=== PATIENT | female | born 1985 | race Two or more races ===

== ENCOUNTER 2018-07-19 12:17 | Outpatient (CLI) | payer MEDICAID ==
[2018-07-19 12:57] LABS: ALBUMIN 3.8 g/dL (3.2-5.5); ALKALINE PHOSPHATASE 89 IU/L (42-121); ALT ALANINE AMINOTRANSFERASE 12 IU/L (10-60); AST ASPARTATE AMINOTRANSFERASE 16 IU/L (10-42); BILIRUBIN,TOTAL 0.4 mg/dL (0.2-1.0); BUN - BLOOD UREA NITROGEN 10 mg/dL (6-20); CALCIUM 8.6 mg/dL (8.5-10.3); CARBON DIOXIDE - CO2 21 mmol/L (21-32); CHLORIDE 106 mmol/L (101-111); CHOL/HDL RATIO 4.3 (<4.4); CHOLESTEROL 171 mg/dL; CREATININE 0.7 mg/dL (0.4-1.0); GFR - MDRD 96 (>89); GLUCOSE 146 mg/dL (70-100); HDL CHOLESTEROL 40 mg/dL; LDL CHOLESTEROL,CALCULATED 94 mg/dL; LDL/HDL RATIO 2.4 (<4.4); SODIUM 135 mmol/L (135-145); TOTAL PROTEIN 7.7 g/dL (6.7-8.2); VLDL CHOLESTEROL 37 mg/dL
[2018-07-19 12:58] LABS: THYROID STIMULATING HORMONE 6.37 uIU/mL (0.34-5.60)
[2018-07-19 13:09] LABS: FOLATE 14.01 ng/mL (5.90 - >24.8)
[2018-07-19 13:11] LABS: BASOPHILS # (AUTO) 0.1 10^3/uL (0.0-0.1); BASOPHILS % (AUTO) 0.7 %; EOSINOPHILS # (AUTO) 0.3 10^3/uL (0.0-0.7); EOSINOPHILS % (AUTO) 2.5 %; HGB - HEMOGLOBIN 13.3 g/dL (12.0-16.0); LYMPHOCYTES # (AUTO) 2.2 10^3/uL (1.5-3.5); LYMPHOCYTES % (AUTO) 19.9 %; MEAN CORPUSCULAR HEMOGLOBIN 27.4 pg (27.0-31.0); MEAN CORPUSCULAR HGB CONC 33.2 g/dL (32.0-36.0); MEAN CORPUSCULAR VOLUME 82.5 fL (81.0-99.0); MEAN PLATELET VOLUME 8.7 fL (7.9-10.8); MONOCYTES # (AUTO) 0.7 10^3/uL (0.0-1.0); NEUTROPHILS # (AUTO) 7.8 10^3/uL (1.5-6.6); NEUTROPHILS % (AUTO) 70.9 %; PLT - PLATELET COUNT 338 10^3/uL (130-450); RED BLOOD COUNT 4.86 10^6/uL (4.20-5.40); RED CELL DISTRIBUTION WIDTH 15.5 % (12.0-15.0)
== END 2018-07-19 12:18 | disposition home or self-care (01) ==
LOC: LAB.N 12:17
PROVIDERS: ATTEND Nurse Practitioner
DX: I10 Essential (primary) hypertension (principal); R53.83 Other fatigue; E03.9 Hypothyroidism, unspecified
CPT/HCPCS: 36415; 80053; 80061; 82306; 82607; 82746; 83721; 84443; 85025

== ENCOUNTER → 2018-07-21 | Outpatient (CLI) | payer MEDICAID ==
[2018-07-21 14:08] LABS: HB2 TOTAL 13.9 g/dL; HEMOGLOBIN A1C 0.74 g/dL
[2018-07-26 14:02] LABS: THYROID PEROXIDASE ANTIBODIES 1 IU/mL (<9)
== END ==
LOC: LAB.N 08:00
PROVIDERS: ATTEND Nurse Practitioner
DX: R73.9 Hyperglycemia, unspecified (principal); E03.9 Hypothyroidism, unspecified
CPT/HCPCS: 36415; 83036; 84439; 84481; 86376; 86800

== ENCOUNTER 2018-08-22 08:00 | Outpatient (CLI) | payer MEDICAID | END 2018-08-22 08:01 | disposition home or self-care (01) | LOC: LAB.N 08:00 | PROVIDERS: ATTEND Nurse Practitioner | DX: E03.9 Hypothyroidism, unspecified (principal) | CPT/HCPCS: 36415; 84443 ==

== ENCOUNTER 2018-08-24 16:46 | Outpatient (CLI) | payer MEDICAID ==
--- NOTE | 2018-08-25 10:24 | Ultrasound Report ---
Reason: EPIGASTRIC PAIN Procedure Date: 08/24/2018 Accession Number: [id number] / [id number] Procedure: US - Abdomen Limited CPT Code: FULL RESULT: EXAM: ABDOMEN ULTRASOUND LIMITED, RUQ EXAM DATE: 08/24/2018 06:27 PM. CLINICAL HISTORY: Epigastric pain. COMPARISON: None. TECHNIQUE: Real-time scanning was performed with static images obtained. FINDINGS: Liver: Liver parenchyma is heterogeneous and mildly hyperechoic. No discrete liver masses or intrahepatic bile duct dilation. However, evaluation for masses is limited secondary to the echogenicity. 17.8 cm. Main portal vein flow: Hepatopetal. Gallbladder: Normal. No stones, wall thickening, or sonographic Rodriguez's sign. Biliary System: CBD measures 4.1 mm. No intrahepatic or extrahepatic ductal dilatation. Other: Right kidney measures 13.2 cm. No hydronephrosis. Questionable heterogeneous masslike region in the right upper kidney measuring 3 x 2.4 x 2.3 cm. IMPRESSION: 1. Mildly fatty liver. No mass. 2. Normal gallbladder and common bile duct. 3. No hydronephrosis. Questionable heterogeneous masslike region in the right upper kidney. Suspect artifact. However, recommend contrast-enhanced CT for better evaluation and to exclude an underlying mass. RADIA
== END 2018-08-24 16:47 | disposition home or self-care (01) ==
LOC: DI 16:46
PROVIDERS: ATTEND Internal Medicine Gastroenterology
DX: R10.13 Epigastric pain (principal)
CPT/HCPCS: 76705

== ENCOUNTER 2018-09-08 08:03 | Day surgery (SDC) | payer MEDICAID ==
[2018-09-08 08:28] LABS: HCG UR QUAL NEGATIVE
[2018-09-08] MEDS ORDERED: LACTATED RINGERS 1,000 ML IV ONE (08:40)
[2018-09-08] MEDS ORDERED: LIDO GARGLE 30 ML BOTTLE ONE (08:42)
[2018-09-08] MEDS ORDERED: fentaNYL 250 MCG/5 ML VIAL IVP ONE (08:53)
[2018-09-08] MEDS ORDERED: MIDAZOLAM 2 MG/2 ML VIAL IVP ONE (08:53)
[2018-09-08] MEDS ORDERED: LIDO GARGLE 30 ML BOTTLE PO ONE (09:18)
[2018-09-08 09:47] VITALS: BP 129/81
== END 2018-09-08 08:04 | disposition home or self-care (01) ==
LOC: SDS 08:03
PROVIDERS: ATTEND Internal Medicine Gastroenterology
PROC: 0DB18ZX Excision of Upper Esophagus, Via Natural or Artificial Opening Endoscopic, Diagnostic (ICD-10-PCS; 2018-09-08)
PROC: 0DB38ZX Excision of Lower Esophagus, Via Natural or Artificial Opening Endoscopic, Diagnostic (ICD-10-PCS; 2018-09-08)
PROC: 0DB98ZX Excision of Duodenum, Via Natural or Artificial Opening Endoscopic, Diagnostic (ICD-10-PCS; principal; 2018-09-08 09:00)
DX: R10.13 Epigastric pain (principal); R13.10 Dysphagia, unspecified; R68.81 Early satiety; M62.08 Separation of muscle (nontraumatic), other site; K21.9 Gastro-esophageal reflux disease without esophagitis; N28.89 Other specified disorders of kidney and ureter; I10 Essential (primary) hypertension; E11.9 Type 2 diabetes mellitus without complications; E03.9 Hypothyroidism, unspecified; E66.01 Morbid (severe) obesity due to excess calories; Z68.41 Body mass index [BMI] 40.0-44.9, adult; F41.9 Anxiety disorder, unspecified; F43.10 Post-traumatic stress disorder, unspecified; G44.89 Other headache syndrome; F17.210 Nicotine dependence, cigarettes, uncomplicated; K59.00 Constipation, unspecified; Z79.82 Long term (current) use of aspirin; Z83.79 Family history of other diseases of the digestive system; Z86.73 Personal history of transient ischemic attack (TIA), and cerebral infarction without residual deficits
CPT/HCPCS: 43239; 74160; 81025; 82565; A9270; J3010; J7120; Q9967

== ENCOUNTER 2018-09-08 10:23 | Outpatient (CLI) | payer MEDICAID ==
[2018-09-08] MEDS ORDERED: IOPAMIDOL-300 100 ML VIAL ONE (10:30)
[2018-09-08 11:17] LABS: CREATININE 0.7 mg/dL (0.4-1.0)
[2018-09-08] MEDS ORDERED: IOPAMIDOL-300 100 ML VIAL IVP ONE (14:38)
--- NOTE | 2018-09-08 15:54 | CT Report ---
Reason: RENAL MASS RIGHT Procedure Date: 09/08/2018 Accession Number: [id number] / [id number] Procedure: CT - Abdomen W/ CPT Code: FULL RESULT: EXAM: CT ABDOMEN EXAM DATE: 09/08/2018 11:41 AM. CLINICAL HISTORY: Upper pole right renal mass. Please assess. COMPARISON: Ultrasound from 08/24/2018. TECHNIQUE: Routine helical CT imaging was performed through the abdomen. IV contrast: Isovue 300 100 mL Enteric contrast: No. Reconstruction: Coronal and sagittal. In accordance with CT protocol optimization, one or more of the following dose reduction techniques were utilized for this exam: automated exposure control, adjustment of mA and/or KV based on patient size, or use of iterative reconstructive technique. FINDINGS: Lung Bases: Minimal basilar scar/atelectasis. The included portions of the heart are unremarkable. Liver: Normal. No masses. Gallbladder/Bile Ducts: Unremarkable. Spleen: Normal. Pancreas: Normal. Adrenal Glands: Normal. Kidneys: Kidneys enhance symmetrically. No masses are seen within the right or left kidney, particularly involving the upper pole of the right kidney. No nephrolithiasis or hydronephrosis. No ureteral dilatation. Peritoneal Cavity/Bowel: Stomach is well-distended and unremarkable. Included portions of the small bowel are unremarkable. Small fatty umbilical hernia. Subcentimeter mesenteric lymph nodes. Small to moderate volume of stool is seen in the colon. No diverticulitis. Subcentimeter retroperitoneal lymph nodes. The appendix is well visualized and normal. Vasculature: No aneurysms or other significant abnormality. Bones: Mild degenerative changes lower thoracic and lumbar spine. No acute osseous abnormalities. Other: None. IMPRESSION: 1. No renal masses are identified, particularly within the upper pole of the right kidney. The area noted on the recent ultrasound is likely the result of renal position and contour. 2. Subcentimeter mesenteric and retroperitoneal lymph nodes. RADIA
== END 2018-09-08 10:24 | disposition home or self-care (01) ==
LOC: DI 10:23
PROVIDERS: ATTEND Internal Medicine Gastroenterology
DX: N28.89 Other specified disorders of kidney and ureter (principal)
CPT/HCPCS: 74160; 82565

== ENCOUNTER 2018-09-26 19:56 | Outpatient (CLI) | payer MEDICAID ==
--- NOTE | 2018-09-27 12:01 | XRAY Report ---
Reason: Cervicalgia Procedure Date: 09/26/2018 Accession Number: [id number] / [id number] Procedure: XR - Cervical Spine 2 View CPT Code: FULL RESULT: EXAM: CERVICAL SPINE RADIOGRAPHY EXAM DATE: 09/26/2018 08:21 PM. CLINICAL HISTORY: Cervicalgia. COMPARISONS: None. TECHNIQUE: 3 views. FINDINGS: Alignment: There is mild reversal of normal cervical lordosis. No spondylolisthesis or scoliosis. Bones: The cervical vertebral bodies and posterior elements are well visualized from the skull base through C7. No fractures or bone lesions. Disks: Normal. Disk heights are maintained. Facets: No degenerative disease. Soft Tissues: Normal. No prevertebral soft tissue swelling. The visualized lung apices are clear. IMPRESSION: 1. Mild reversal of normal cervical lordosis. No spondylolisthesis or scoliosis. 2. No fracture or other acute osseous abnormality. No significant degenerative changes. RADIA
== END 2018-09-26 19:57 | disposition home or self-care (01) ==
LOC: DI 19:56
PROVIDERS: ATTEND Nurse Practitioner
DX: M54.2 Cervicalgia (principal); Z86.79 Personal history of other diseases of the circulatory system
CPT/HCPCS: 72040

== ENCOUNTER 2019-01-03 14:48 | Emergency (ER) | payer MEDICAID ==
[2019-01-03] MEDS ORDERED: KETOROLAC 30 MG/ML VIAL IM STA (17:07)
[2019-01-03] MEDS ORDERED: BUPIVACAINE 0.5%-EPI 1:200000 PF 10 ML VIAL SUBQ STA (17:07)
[2019-01-03] MEDS ORDERED: DEXAMETHASONE 10 MG/ML VIAL PO STA (17:07)
[2019-01-03] MEDS ORDERED: ONDANSETRON ODT 4 MG TABLET TL STA (17:09)
[2019-01-03 17:48] VITALS: BP 123/88
--- NOTE | 2019-01-03 17:52 | CT Report ---
Reason: right sided headache Procedure Date: 01/03/2019 Accession Number: [id number] / [id number] Procedure: CT - Head W/O CPT Code: FULL RESULT: EXAM: CT HEAD EXAM DATE: 01/03/2019 05:42 PM. CLINICAL HISTORY: Right sided headache. COMPARISON: None. TECHNIQUE: Multiaxial CT images were obtained from the foramen magnum to the vertex. Reformats: Sagittal and coronal. IV contrast: None. In accordance with CT protocol optimization, one or more of the following dose reduction techniques were utilized for this exam: automated exposure control, adjustment of mA and/or KV based on patient size, or use of iterative reconstructive technique. FINDINGS: Parenchyma: No intraparenchymal hemorrhage. No evidence of mass, midline shift, or CT findings of infarction. Rocha-white differentiation is distinct. Extraaxial Spaces: Normal for age. No subdural or epidural collections identified. Ventricles: Normal in size and position. Sinuses and Orbits: Imaged paranasal sinuses, orbits, and mastoids show no significant abnormality. Bones: No evidence of fracture or calvarial defect. IMPRESSION: Normal head CT. RADIA
--- NOTE | 2019-01-03 18:17 | ED Physician Documentation ---
PD HPI HEADACHE - Stated complaint Stated Complaint: COLD SX - Chief complaint Chief Complaint: Neuro - History obtained from History obtained from: Patient - History of Present Illness Timing - onset: How many days ago (3-4 days of right sided head pressure/pain, with some right eye visual sensitive, nausea.) Timing - onset during: Light activity Timing - duration: Days Timing - details: Gradual onset, Still present, Waxing and waning Worst headache ever?: No: Worst headache ever? (similar to other headaches, but has lasted more consistently. Typically will last hours to part of a day. Past headaches have always been on right like this.) Location: Right Quality: Aching (pressure feeling) Associated symptoms: Numbness (intermittent on right face). No: Fever, Stiff neck, Nausea, Vomiting, Eye pain, Vision changes Contributing factors: No: Hypertension, Recent illness, Trauma Similar symptoms before: Diagnosis (sounds like Dx of Migraines, with current PCP initiating referrals for Neurology and brain MRI (patient is new to [facility]). Previously had had normal MRIs. Has had previous trials of Imitrex. Has been on Metoprolol in the past. Currently on Topiramate to attemp to reduce headache frequency. Patient says no response in the past to Imitrex, Fioricet, and OTC meds.) Review of Systems Constitutional: denies: Fever, Chills, Myalgias Nose: denies: Rhinorrhea / runny nose, Congestion, Sinus pressure / pain Neurologic: reports: Headache. 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: section, Tubal ligation - Present Medications Home Medications: Ambulatory Orders Medication Instructions Recorded Confirmed Aspirin [Adult Aspirin] 81 mg PO DAILY 09/08/18 09/08/18 Cholecalciferol [Vitamin D3] 5,000 unit PO DAILY 09/08/18 09/08/18 Levothyroxine [Synthroid] 75 mcg PO QDAC 09/08/18 09/08/18 Lisinopril 10 mg PO DAILY 09/08/18 09/08/18 [place]-3/Dha/Epa/Fish Oil [Fish Oil 1 each PO DAILY 09/08/18 09/08/18 1,000 mg Softgel] Omeprazole 20 mg PO DAILY 09/08/18 09/08/18 Propranolol [Inderal] 10 mg PO BID PRN 09/08/18 09/08/18 Sertraline [Zoloft] 25 mg PO DAILY 09/08/18 09/08/18 Topiramate [Topamax] 25 mg PO QPM 09/08/18 09/08/18 Dexamethasone [Decadron] 4 mg PO DAILY #5 tablet 01/03/19 Ergotamine Tartrate/Caffeine 1 each PO Q6H PRN #15 tablet 01/03/19 [Cafergot Tablet] Naproxen 375 mg PO BID #20 tablet 01/03/19 Ondansetron Odt [Zofran] 4 mg TL Q6H PRN #10 tablet 01/03/19 - Allergies Allergies/Adverse Reactions: Allergies Allergy/AdvReac Type Severity Reaction Status Date / Time No Known Drug Allergies Allergy Verified 01/03/19 15:08 - Social History Does the pt smoke?: No Smoking Status: Never smoker Does the pt drink ETOH?: No Does the pt have substance abuse?: No - Immunizations Immunizations are current?: Yes - POLST Patient has POLST: No PD ED PE NORMAL - Vitals Vital signs reviewed: Yes - General General: Alert and oriented X 3, Well developed/nourished - HEENT HEENT: PERRL, EOMI, Moist mucous membranes, Pharynx benign - Neck Neck: Supple, no meningeal sign, No adenopathy, Other (tender right trapezius insertion area and this triggers pain into right side of head.) - Cardiac Cardiac: RRR, No murmur - Respiratory Respiratory: Clear bilaterally - Abdomen Abdomen: Soft, Non tender - Back Back: No CVA TTP - Derm Derm: Normal color, Warm and dry - Neuro Neuro: Alert and oriented X 3, 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 Departure - Departure Disposition: 01 Home, Self Care Clinical Impression: Right-sided headache Condition: Stable Record reviewed to determine appropriate education?: Yes Instructions: ED Cephalgia Unspecified Follow-Up: Aby Cabrales DNP [Primary Care Provider] - Prescriptions: Dexamethasone [Decadron] 4 mg PO DAILY #5 tablet Ergotamine Tartrate/Caffeine [Cafergot Tablet] 1 each PO Q6H PRN #15 tablet PRN Reason: Migraine Naproxen 375 mg PO BID #20 tablet Ondansetron Odt [Zofran] 4 mg TL Q6H PRN #10 tablet PRN Reason: Nausea / Vomiting Comments: Continue your current medications. Add Decadron steroid daily for the next 5 days. Use naproxen twice daily if needed for discomfort. Your head CT appears normal, so no tumors, swelling, bleeding as cause for the symptoms. The symptoms sound like migraine-type headache. Follow-up with your primary care and they can continue with the referral for neurology and even the MRI. That will give other information as well. For subsequent episodes that sound like migraine type headaches, use a combination of naproxen and Cafergot and can add ondansetron if needed for nausea. This combination is another attempt with antimigraine type medicines. Discharge Date/Time: 01/03/19 18:28
== END 2019-01-03 18:28 | disposition home or self-care (01) ==
LOC: ED 14:48
DX: R51 Headache (principal); Z86.73 Personal history of transient ischemic attack (TIA), and cerebral infarction without residual deficits
CPT/HCPCS: 20552; 70450; 96372; 99283; Q0162

== ENCOUNTER 2019-01-06 09:35 | Emergency (ER) | payer MEDICAID ==
[2019-01-06] MEDS ORDERED: PROCHLORPERAZINE 10 MG/2 ML VIAL IVP STA (10:39)
[2019-01-06] MEDS ORDERED: KETOROLAC 30 MG/ML VIAL IVP STA (10:39)
[2019-01-06] MEDS ORDERED: SODIUM CHLORIDE 0.9% 1,000 ML IV ONE (10:39)
[2019-01-06 12:40] VITALS: BP 120/97
--- NOTE | 2019-01-06 12:51 | ED Physician Documentation ---
PD HPI HEADACHE - Stated complaint Stated Complaint: NAUSEA/DIZZY - Chief complaint Chief Complaint: Neuro - History obtained from History obtained from: Patient, Family (Spouse) - History of Present Illness Timing - onset: How many days ago (5) Timing - details: Still present Worst headache ever?: Worst headache ever? (No) Quality: Other (pressure) Associated symptoms: Nausea, Vomiting Similar symptoms before: Treatment (Trigger point injection 3 days ago.) Recently seen: Emergency Dept (3 days ago with same.) - Additional information Additional information: The patient is a 33-year-old female who presents with headache that started 5 days ago, and has been persistent. She reports associated dizziness and nausea. She vomited once today. She denies fever, photosensitivity, abdominal pain, numbness or weakness. She was seen here 3 days ago for similar symptoms. She had a head CT at that time which was negative. She was treated with trigger point injection, which temporarily improved her symptoms. She reports history of similar symptoms many times in the past. She is treated for hypertension. Review of Systems Constitutional: denies: Fever Eyes: denies: Photophobia Ears: denies: Tinnitus/ringing Nose: denies: Congestion Throat: denies: Sore throat Cardiac: denies: Chest pain / pressure Respiratory: denies: Dyspnea, Cough GI: reports: Nausea, Vomiting. denies: Abdominal Pain : denies: Dysuria Skin: denies: Rash Musculoskeletal: denies: Neck pain, Back pain Neurologic: reports: Headache. 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 - Present Medications Home Medications: Ambulatory Orders Medication Instructions Recorded Confirmed Aspirin [Adult Aspirin] 81 mg PO DAILY 09/08/18 09/08/18 Cholecalciferol [Vitamin D3] 5,000 unit PO DAILY 09/08/18 09/08/18 Levothyroxine [Synthroid] 75 mcg PO QDAC 09/08/18 09/08/18 Lisinopril 10 mg PO DAILY 09/08/18 09/08/18 [place]-3/Dha/Epa/Fish Oil [Fish Oil 1 each PO DAILY 09/08/18 09/08/18 1,000 mg Softgel] Omeprazole 20 mg PO DAILY 09/08/18 09/08/18 Propranolol [Inderal] 10 mg PO BID PRN 09/08/18 09/08/18 Sertraline [Zoloft] 25 mg PO DAILY 09/08/18 09/08/18 Topiramate [Topamax] 25 mg PO QPM 09/08/18 09/08/18 Dexamethasone [Decadron] 4 mg PO DAILY #5 tablet 01/03/19 Ergotamine Tartrate/Caffeine 1 each PO Q6H PRN #15 tablet 01/03/19 [Cafergot Tablet] Naproxen 375 mg PO BID #20 tablet 01/03/19 Ondansetron Odt [Zofran] 4 mg TL Q6H PRN #10 tablet 01/03/19 Ibuprofen [Motrin] 800 mg PO Q8H PRN #30 tablet 01/06/19 Promethazine [Phenergan] 25 mg PO Q6H PRN #10 tab 01/06/19 amLODIPine [Norvasc] 5 mg PO ONCE 01/06/19 01/06/19 - Allergies Allergies/Adverse Reactions: Allergies Allergy/AdvReac Type Severity Reaction Status Date / Time No Known Drug Allergies Allergy Verified 01/06/19 09:48 - Social History Does the pt smoke?: No Smoking Status: Never smoker Does the pt drink ETOH?: No Does the pt have substance abuse?: No - Immunizations Immunizations are current?: Yes - POLST Patient has POLST: No PD ED PE NORMAL - Vitals Vital signs reviewed: Yes (borderline hypertension initially.) - General General: Alert and oriented X 3, Well developed/nourished - HEENT HEENT: Atraumatic, PERRL, EOMI, Ears normal, Pharynx benign, Other (Fundi without papilledema.) - Neck Neck: Supple, no meningeal sign, No adenopathy - Cardiac Cardiac: RRR, No murmur - Respiratory Respiratory: No respiratory distress, Clear bilaterally - Abdomen Abdomen: Soft, Non tender - Back Back: No CVA TTP - Derm Derm: No rash - Extremities Extremities: No edema, No calf tenderness / cord - Neuro Neuro: Alert and oriented X 3, No motor deficit, No sensory deficit, Normal speech Results - Vitals Vitals: Oxygen O2 Source Room air PD MEDICAL DECISION MAKING - ED course Complexity details: reviewed old records, re-evaluated patient, considered differential, d/w patient ED course: The patient's presentation is consistent with cephalgia of uncertain etiology. Migraine headache is considered, but this is a somewhat atypical presentation. She has had similar headaches many times in the past. There is no evidence to suggest intracranial hemorrhage, and she had a negative head CT three days ago when she presented with similar symptoms. Her presentation does not suggest temporal arteritis, meningitis, or pseudotumor cerebri. Treatment in the emergency department included administration of normal saline 1 L IV, prochlorperazine 10 mg IV, and ketorolac 30 mg IV. Her symptoms resolved with the above treatment. She is being discharged with prescription for Phenergan. I discussed with her symptomatic treatment, outpatient follow-up, as well as potentially worrisome signs or symptoms that should prompt reevaluation in the emergency department. Departure - Departure Disposition: 01 Home, Self Care Clinical Impression: Cephalgia Qualifiers: Headache type: unspecified Headache chronicity pattern: acute headache Intractability: not intractable Qualified Code(s): R51 - Headache Condition: Stable Instructions: ED Cephalgia Unspecified Follow-Up: Aby Cabrales DNP [Credentialed Staff Provider] - Prescriptions: Ibuprofen [Motrin] 800 mg PO Q8H PRN #30 tablet PRN Reason: Pain Promethazine [Phenergan] 25 mg PO Q6H PRN #10 tab PRN Reason: Nausea / Vomiting Comments: Drink plenty of fluids. You can use ibuprofen, up to 800 mg 3 times daily if needed for recurrent headache. You can use Phenergan as prescribed if needed for nausea. Follow-up with your primary physician as planned. Return to the emergency department if you develop increasing headache, persistent vomiting, fever with shaking chills, or otherwise worsening symptoms. Forms: Activity restrictions Discharge Date/Time: 01/06/19 13:01
== END 2019-01-06 13:01 | disposition home or self-care (01) ==
LOC: ED 09:35
DX: R51 Headache (principal); R42 Dizziness and giddiness; R11.2 Nausea with vomiting, unspecified; I10 Essential (primary) hypertension; Z79.82 Long term (current) use of aspirin
CPT/HCPCS: 96374; 99283

== ENCOUNTER 2019-03-10 08:00 | Outpatient (CLI) | payer MEDICAID ==
[2019-03-10 13:26] LABS: ALBUMIN 3.7 g/dL (3.2-5.5); ALKALINE PHOSPHATASE 95 IU/L (42-121); ALT ALANINE AMINOTRANSFERASE 13 IU/L (10-60); AST ASPARTATE AMINOTRANSFERASE 16 IU/L (10-42); BILIRUBIN,TOTAL 0.4 mg/dL (0.2-1.0); BUN - BLOOD UREA NITROGEN 11 mg/dL (6-20); CALCIUM 8.7 mg/dL (8.5-10.3); CARBON DIOXIDE - CO2 22 mmol/L (21-32); CHLORIDE 103 mmol/L (101-111); CHOL/HDL RATIO 4.6 (<4.4); CHOLESTEROL 173 mg/dL; CREATININE 0.6 mg/dL (0.4-1.0); GFR - MDRD 114 (>89); GLUCOSE 167 mg/dL (70-100); HDL CHOLESTEROL 38 mg/dL; LDL CHOLESTEROL,CALCULATED 107 mg/dL; LDL/HDL RATIO 2.8 (<4.4); SODIUM 136 mmol/L (135-145); TOTAL PROTEIN 7.3 g/dL (6.7-8.2); VLDL CHOLESTEROL 28 mg/dL
[2019-03-10 14:03] LABS: HB2 TOTAL 13.8 g/dL; HEMOGLOBIN A1C 0.89 g/dL; HEMOGLOBIN A1C % 8.1 % (4.6-6.2)
[2019-03-10 14:04] LABS: CREATININE,URINE 153.9 mg/dL; MICROALBUM/CREATININE RATIO,UR 31.2 ug/mg (<30.0); MICROALBUMIN,URINE 4.8 mg/dL (0-300.0)
[2019-03-10 19:19] LABS: BASOPHILS # (AUTO) 0.1 10^3/uL (0.0-0.1); BASOPHILS % (AUTO) 1.2 %; EOSINOPHILS # (AUTO) 0.2 10^3/uL (0.0-0.7); EOSINOPHILS % (AUTO) 2.1 %; HGB - HEMOGLOBIN 12.8 g/dL (12.0-16.0); LYMPHOCYTES # (AUTO) 2.3 10^3/uL (1.5-3.5); MEAN CORPUSCULAR HEMOGLOBIN 26.3 pg (27.0-31.0); MEAN CORPUSCULAR HGB CONC 31.7 g/dL (32.0-36.0); MEAN PLATELET VOLUME 8.9 fL (7.9-10.8); MONOCYTES # (AUTO) 0.7 10^3/uL (0.0-1.0); MONOCYTES % (AUTO) 6.6 %; NEUTROPHILS # (AUTO) 7.7 10^3/uL (1.5-6.6); NEUTROPHILS % (AUTO) 69.1 %; PLT - PLATELET COUNT 324 10^3/uL (130-450); RED BLOOD COUNT 4.85 10^6/uL (4.20-5.40); RED CELL DISTRIBUTION WIDTH 16.3 % (12.0-15.0); WHITE BLOOD COUNT 11.2 x10^3/uL (4.8-10.8)
[2019-03-13 13:32] LABS: ANA SCREEN NEGATIVE (NEGATIVE)
== END 2019-03-10 23:59 | disposition home or self-care (01) ==
LOC: LAB.N 08:00
PROVIDERS: ATTEND Nurse Practitioner
DX: I10 Essential (primary) hypertension (principal); E11.9 Type 2 diabetes mellitus without complications; K11.20 Sialoadenitis, unspecified; R53.83 Other fatigue
CPT/HCPCS: 36415; 80053; 80061; 82043; 82570; 83036; 83721; 84443; 85025; 85651; 86038; 86140

== ENCOUNTER 2019-07-11 08:00 | Outpatient (CLI) | payer MEDICAID ==
[2019-07-11 13:26] LABS: CALCIUM 8.4 mg/dL (8.5-10.3); CREATININE 0.6 mg/dL (0.4-1.0)
[2019-07-11 13:42] LABS: CREATININE,URINE 230.7 mg/dL; MICROALBUM/CREATININE RATIO,UR 57.7 ug/mg (<30.0); MICROALBUMIN,URINE 13.3 mg/dL (0-300.0)
[2019-07-11 13:58] LABS: HB2 TOTAL 13.7 g/dL; HEMOGLOBIN A1C 1.11 g/dL; HEMOGLOBIN A1C % 9.6 % (4.6-6.2)
== END 2019-07-11 23:59 | disposition home or self-care (01) ==
LOC: LAB.N 08:00
PROVIDERS: ATTEND Nurse Practitioner Gerontology
DX: E11.9 Type 2 diabetes mellitus without complications (principal)
CPT/HCPCS: 36415; 80048; 82043; 82570; 83036

== ENCOUNTER 2019-11-06 07:36 | Outpatient (CLI) | payer MEDICAID ==
[2019-11-06 13:53] LABS: HEMOGLOBIN A1C 0.93 g/dL; HEMOGLOBIN A1C % 8.7 % (4.6-6.2)
== END 2019-11-06 23:59 | disposition home or self-care (01) ==
LOC: LAB.N 07:36
PROVIDERS: ATTEND Nurse Practitioner Gerontology
DX: E11.9 Type 2 diabetes mellitus without complications (principal)
CPT/HCPCS: 36415; 83036

== ENCOUNTER 2020-02-06 07:56 | Outpatient (CLI) | payer MEDICAID ==
[2020-02-06 12:35] LABS: CALCIUM 8.3 mg/dL (8.5-10.3); CREATININE 0.6 mg/dL (0.4-1.0)
[2020-02-06 12:52] LABS: HB2 TOTAL 12.5 g/dL; HEMOGLOBIN A1C 0.96 g/dL; HEMOGLOBIN A1C % 9.2 % (4.6-6.2)
== END 2020-02-06 23:59 | disposition home or self-care (01) ==
LOC: LAB.N 07:56
PROVIDERS: ATTEND Nurse Practitioner Gerontology
DX: E11.9 Type 2 diabetes mellitus without complications (principal)
CPT/HCPCS: 36415; 80048; 83036

== ENCOUNTER 2020-03-07 13:36 | Outpatient (CLI) | payer MEDICAID ==
[2020-03-07 16:34] LABS: BASOPHILS # (AUTO) 0.1 10^3/uL (0.0-0.1); BASOPHILS % (AUTO) 0.8 %; EOSINOPHILS # (AUTO) 0.3 10^3/uL (0.0-0.7); EOSINOPHILS % (AUTO) 1.9 %; HGB - HEMOGLOBIN 13.3 g/dL (12.0-16.0); LYMPHOCYTES % (AUTO) 22.5 %; MEAN CORPUSCULAR HEMOGLOBIN 26.7 pg (27.0-31.0); MEAN CORPUSCULAR HGB CONC 31.1 g/dL (32.0-36.0); MEAN CORPUSCULAR VOLUME 85.7 fL (81.0-99.0); MEAN PLATELET VOLUME 10.9 fL (7.9-10.8); MONOCYTES # (AUTO) 0.8 10^3/uL (0.0-1.0); MONOCYTES % (AUTO) 6.1 %; NEUTROPHILS % (AUTO) 66.8 %; PLT - PLATELET COUNT 381 10^3/uL (130-450); RED BLOOD COUNT 4.98 10^6/uL (4.20-5.40); RED CELL DISTRIBUTION WIDTH 15.3 % (12.0-15.0); WHITE BLOOD COUNT 13.5 x10^3/uL (4.8-10.8)
[2020-03-07 16:52] LABS: ALBUMIN 3.9 g/dL (3.2-5.5); ALBUMIN/GLOBULIN RATIO 0.9 (1.0-2.2); BILIRUBIN,TOTAL 0.3 mg/dL (0.2-1.0); CALCIUM 8.2 mg/dL (8.5-10.3); CREATININE 0.6 mg/dL (0.4-1.0); TOTAL PROTEIN 8.1 g/dL (6.7-8.2)
== END 2020-03-07 23:59 | disposition home or self-care (01) ==
LOC: LAB.WCP 13:36
PROVIDERS: ATTEND Family Medicine
DX: G45.9 Transient cerebral ischemic attack, unspecified (principal); F31.12 Bipolar disorder, current episode manic without psychotic features, moderate
CPT/HCPCS: 36415; 80053; 85025; 85651

== ENCOUNTER 2020-03-15 14:37 | Outpatient (CLI) | payer MEDICAID ==
--- NOTE | 2020-03-17 08:15 | XRAY Report ---
Reason: DORSALGIA/TIA Procedure Date: 03/15/2020 Accession Number: [id number] / [id number] Procedure: XR - Chest 2 View X-Ray CPT Code: 19515 Final Report FULL RESULT: EXAM: CHEST RADIOGRAPHY EXAM DATE: 03/15/2020 02:53 PM. CLINICAL HISTORY: DORSALGIA/TIA. Right-sided chest burning and numbness. COMPARISON: None. TECHNIQUE: 2 views. FINDINGS: Lungs/Pleura: No focal opacities evident. No pleural effusion. No pneumothorax. Normal volumes. Mediastinum: Heart and mediastinal contours are unremarkable. Other: No acute osseous abnormality. IMPRESSION: Normal 2-view chest radiography. RADIA
--- NOTE | 2020-03-19 11:33 | Ultrasound Report ---
Reason: DORSALGIA,TIA Procedure Date: 03/15/2020 Accession Number: [id number] / [id number] Procedure: US - Carotid Doppler Complete CPT Code: Final Report FULL RESULT: EXAM: BILATERAL CAROTID AND VERTEBRAL ARTERY DUPLEX DOPPLER ULTRASOUND: EXAM DATE: 03/15/2020 04:50 PM CLINICAL HISTORY: Dorsalgia, TIA. COMPARISON: None available. TECHNIQUE: Grayscale imaging, color Doppler, and duplex spectral Doppler were used to evaluate the carotid and vertebral arteries bilaterally. Static images were obtained. FINDINGS: Technically limited and difficult examination with limited visualization. Atheromatous disease seen in the carotid arteries bilaterally including the common and internal and external carotid arteries. Normal antegrade flow is present in bilateral vertebral arteries. Bilateral cervical lymph nodes are seen in short axis dimension on the right measuring up to 13 mm, and on the left measuring up to 10 mm. VELOCITIES (cm/s): Right CCA mid: PSV 77 cm/s CCA dist: PSV 77.5 cm/s ICA prox: PSV 49.9 cm/s, EDV 17.8 cm/s ICA mid: PSV 67.8 cm/s, EDV 33 cm/s ICA dist: PSV 81.8 cm/s, EDV 43.4 cm/s ECA: PSV 66.8 cm/s Vert: PSV 45.6 cm/s ICA/CCA: 1.2 Left CCA mid: PSV 71.9 cm/s CCA dist: PSV 56.5 cm/s ICA prox: PSV 79.0 cm/s, EDV 29.9 cm/s ICA mid: PSV 67.7 cm/s, EDV 27.8 cm/s ICA dist: PSV 56.1 cm/s, EDV 29.9 cm/s ECA: PSV 82 cm/s Vert: PSV 55.6 cm/s ICA/CCA: 1.1 ICA diameter stenosis: Right: <50% by velocity and <70% by NASCET criteria. Left: <50% by velocity and <70% by NASCET criteria. IMPRESSION: 1. Bilateral carotid artery plaquing. 2. In the right carotid artery there are no elevated carotid artery velocities to suggest hemodynamically significant stenosis. 3. In the left carotid artery there are no elevated carotid artery velocities to suggest hemodynamically significant stenosis. 4. Normal antegrade flow is present in bilateral vertebral arteries. 5. Mildly prominent bilateral cervical lymph nodes. General Recommendations: Stenosis =50% ICA - Follow-up ultrasound 6-12 months Stenosis <50% ICA - High Risk Patient with plaque - Follow-up ultrasound 1-2 years Normal Study but High Risk Patient - Follow-up ultrasound 3-5 years Management recommendations and diagnostic criteria are based on current IAC endorsed standards in Carotid Artery Stenosis: Grayscale and Doppler Ultrasound Diagnosis. Validated velocity measurements with angiographic measurements and velocity criteria are extrapolated from diameter data as defined by the Society of Radiologists in Ultrasound Consensus Conference Radiology 2003; 229;340-346. RADIA
== END 2020-03-15 14:38 | disposition home or self-care (01) ==
LOC: DI 14:37
PROVIDERS: ATTEND Family Medicine
DX: I65.23 Occlusion and stenosis of bilateral carotid arteries (principal); R59.0 Localized enlarged lymph nodes; M54.9 Dorsalgia, unspecified
CPT/HCPCS: 71046; 93880

== ENCOUNTER 2020-03-21 08:00 | Outpatient (CLI) | payer MEDICAID ==
[2020-03-21 14:10] LABS: THYROID STIMULATING HORMONE 5.36 uIU/mL (0.34-5.60)
[2020-03-21 14:12] LABS: FREE T3 3.93 pg/mL (2.5-3.9); FREE T4 (FREE THYROXINE) 0.73 ng/dL (0.58-1.64)
== END 2020-03-21 23:59 | disposition home or self-care (01) ==
LOC: LAB.WCP 08:00
PROVIDERS: ATTEND Family Medicine
DX: E03.9 Hypothyroidism, unspecified (principal)
CPT/HCPCS: 36415; 84439; 84443; 84481

== ENCOUNTER 2020-04-03 11:35 | Outpatient (CLI) | payer MEDICAID ==
--- NOTE | 2020-04-03 14:27 | CT Report ---
Reason: HYPOTHYROID Procedure Date: 04/03/2020 Accession Number: [id number] / [id number] Procedure: CT - HEAD WO CPT Code: Final Report FULL RESULT: CT HEAD WITHOUT CONTRAST INDICATION: 34-year-old female. History as per requisition is "hypothyroid". However, according to the chief radiologic technologist this examination was requested to evaluate a TIA type episode. TECHNIQUE: Sequential 5 mm axial images were obtained through the brain. In accordance with CT protocol optimization, one or more of the following dose reduction techniques were utilized for this exam: automated exposure control, adjustment of mA and/or KV based on patient size, or use of iterative reconstructive technique. COMPARISON: 01/03/2019. FINDINGS: Ventricular size is normal and stable. The cortical sulci are very small, however, the findings are unchanged when compared to the previous examination from December of last year. Therefore, the small size of the sulci is presumably normal for this relatively young individual. The zavala-white differentiation is maintained without obvious findings of diffuse cerebral edema/brain swelling. There is no intracranial hemorrhage or abnormal extra-axial fluid collection. No mass effect or midline shift. The skull and skull base appear intact. The middle ear cavities and the mastoid air cells appear well aerated and clear. The imaged paranasal sinuses appear well aerated and clear. IMPRESSION: 1. Stable appearance of the brain when compared to previous study 01/03/2019. 2. No acute/subacute intracranial pathology is demonstrated. In particular, there is no evidence of recent lacunar or cortical infarction.
== END 2020-04-03 11:36 | disposition home or self-care (01) ==
LOC: DI 11:35
PROVIDERS: ATTEND Family Medicine
DX: E03.9 Hypothyroidism, unspecified (principal); G45.9 Transient cerebral ischemic attack, unspecified
CPT/HCPCS: 70450

== ENCOUNTER 2020-04-19 07:00 | Outpatient (CLI) | payer MEDICAID | END 2020-04-19 23:59 | disposition home or self-care (01) | LOC: LAB.WCP 07:00 | PROVIDERS: ATTEND Family Medicine | DX: E11.40 Type 2 diabetes mellitus with diabetic neuropathy, unspecified (principal); R20.1 Hypoesthesia of skin | CPT/HCPCS: 36415; 84207; 84425 ==

== ENCOUNTER 2020-05-16 16:35 | Outpatient (CLI) | payer MEDICAID | END 2020-05-16 23:59 | disposition home or self-care (01) | LOC: LAB.WCP 16:35 | PROVIDERS: ATTEND Family Medicine | DX: E11.42 Type 2 diabetes mellitus with diabetic polyneuropathy (principal) | CPT/HCPCS: 36415; 80048; 83036 ==

== ENCOUNTER 2020-05-17 21:50 | Emergency (ER) | payer MEDICAID ==
[2020-05-17] MEDS ORDERED: methylPREDNISolone SUCCINATE 1,000 MG in SODIUM CHLORIDE 0.9% 250 ML IV STA (21:57)
[2020-05-17] MEDS ORDERED: WATER FOR INJECTION,STERILE 20 ML ONE (22:19)
--- NOTE | 2020-05-17 22:19 | ED Physician Documentation ---
History of Present Illness - Stated complaint Stated Complaint: IV INFUSION - Chief complaint Chief Complaint: General - History obtained from History obtained from: Patient, Family - History of Present Illness Timing: Today Pain level max: 0 Pain level now: 0 - Additonal information Additional information: newly diagnosed with MS today. Her physician called, Dr. Barrett, and asked that she receive solu-medrol 1 g IV daily x 3 days and then follow up with her on Wednesday. Patient has numbness to the L side of the body x 2 months. 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 : None HEENT: None Psych: Anxiety, Panic attacks, Post traumatic stress disorder Musculoskeletal: None Derm: None - Past Surgical History Past Surgical History: Yes /INFANTRY ASSAULTMAN: section, Tubal ligation - Present Medications Home Medications: Ambulatory Orders Medication Instructions Recorded Confirmed Aspirin [Adult Aspirin] 81 mg PO DAILY 09/08/18 09/08/18 Cholecalciferol [Vitamin D3] 5,000 unit PO DAILY 09/08/18 09/08/18 Levothyroxine [Synthroid] 75 mcg PO QDAC 09/08/18 09/08/18 [place]-3/Dha/Epa/Fish Oil [Fish Oil 1 each PO DAILY 09/08/18 09/08/18 1,000 mg Softgel] Omeprazole 20 mg PO DAILY 09/08/18 09/08/18 Propranolol [Inderal] 10 mg PO BID PRN 09/08/18 09/08/18 Sertraline [Zoloft] 25 mg PO DAILY 09/08/18 09/08/18 Topiramate [Topamax] 25 mg PO QPM 09/08/18 09/08/18 lisinopriL [Lisinopril] 10 mg PO DAILY 09/08/18 09/08/18 Ergotamine Tartrate/Caffeine 1 each PO Q6H PRN #15 tablet 01/03/19 [Cafergot Tablet] Naproxen 375 mg PO BID #20 tablet 01/03/19 Ondansetron Odt [Zofran] 4 mg TL Q6H PRN #10 tablet 01/03/19 dexAMETHasone [Decadron] 4 mg PO DAILY #5 tablet 01/03/19 Ibuprofen [Motrin] 800 mg PO Q8H PRN #30 tablet 01/06/19 Promethazine [Phenergan] 25 mg PO Q6H PRN #10 tab 01/06/19 amLODIPine [Norvasc] 5 mg PO ONCE 01/06/19 01/06/19 - Allergies Allergies/Adverse Reactions: Allergies Allergy/AdvReac Type Severity Reaction Status Date / Time No Known Drug Allergies Allergy Verified 05/17/20 22:06 - Social History Does the pt smoke?: No Smoking Status: Never smoker Does the pt drink ETOH?: No Does the pt have substance abuse?: No - Immunizations Immunizations are current?: Yes - POLST Patient has POLST: No PD ED PE NORMAL - Vitals Vital signs reviewed: Yes - General General: Alert and oriented X 3, No acute distress - HEENT HEENT: Moist mucous membranes - Neck Neck: Supple, no meningeal sign - Cardiac Cardiac: RRR - Respiratory Respiratory: No respiratory distress, Clear bilaterally - Derm Derm: Warm and dry - Neuro Neuro: Alert and oriented X 3 - Psych Psych: Normal mood, Normal affect Results - Vitals Vitals: Vital Signs - 24 hr 05/17/20 22:04 Temperature 36.8 C Heart Rate 110 H Respiratory 17 Rate Blood Pressure 148/92 H O2 Saturation 98 Oxygen O2 Source Room air PD MEDICAL DECISION MAKING - ED course Complexity details: considered differential, d/w patient, d/w family, d/w direct sales consultant ED course: Patient given 1 g of IV Solu-Medrol. We will have her return tomorrow for her next dose. This document was made in part using voice recognition software. While efforts are made to proofread this document, sound alike and grammatical errors may occur. Departure - Departure Disposition: 01 Home, Self Care Clinical Impression: Multiple sclerosis Condition: Good Instructions: Multiple Sclerosis Follow-Up: GOMEZ BARRETT MD [Physician No Access] - 05/20/20 Comments: You need to return to the emergency department tomorrow for another infusion. You will need an infusion on Wednesday and you will follow-up with neurology
[2020-05-17 23:31] VITALS: BP 138/92
== END 2020-05-17 23:30 | disposition home or self-care (01) ==
LOC: ED 21:50
DX: G35 Multiple sclerosis (principal); I10 Essential (primary) hypertension; Z79.82 Long term (current) use of aspirin
CPT/HCPCS: 96365; 99284

== ENCOUNTER 2020-05-18 19:12 | Emergency (ER) | payer MEDICAID ==
[2020-05-18] MEDS ORDERED: methylPREDNISolone SUCCINATE 1,000 MG in SODIUM CHLORIDE 0.9% 250 ML IV STA (19:18)
--- NOTE | 2020-05-18 19:18 | ED Physician Documentation ---
History of Present Illness - Stated complaint Stated Complaint: INFUSION - History obtained from History obtained from: Patient, Family - History of Present Illness Pain level max: 0 Pain level now: 0 - Additonal information Additional information: Patient newly diagnosed with multiple sclerosis. She is here for her 1 g infusion of Solu-Medrol. She is following up with her neurologist on Wednesday. This is day 2 of the 3-day infusion. Nothing makes it better or worse. Most of her numbness is on the right side. 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 WETTER: section, Tubal ligation - Present Medications Home Medications: Ambulatory Orders Medication Instructions Recorded Confirmed Aspirin [Adult Aspirin] 81 mg PO DAILY 09/08/18 09/08/18 Cholecalciferol [Vitamin D3] 5,000 unit PO DAILY 09/08/18 09/08/18 Levothyroxine [Synthroid] 75 mcg PO QDAC 09/08/18 09/08/18 [place]-3/Dha/Epa/Fish Oil [Fish Oil 1 each PO DAILY 09/08/18 09/08/18 1,000 mg Softgel] Omeprazole 20 mg PO DAILY 09/08/18 09/08/18 Propranolol [Inderal] 10 mg PO BID PRN 09/08/18 09/08/18 Sertraline [Zoloft] 25 mg PO DAILY 09/08/18 09/08/18 Topiramate [Topamax] 25 mg PO QPM 09/08/18 09/08/18 lisinopriL [Lisinopril] 10 mg PO DAILY 09/08/18 09/08/18 Ergotamine Tartrate/Caffeine 1 each PO Q6H PRN #15 tablet 01/03/19 [Cafergot Tablet] Naproxen 375 mg PO BID #20 tablet 01/03/19 Ondansetron Odt [Zofran] 4 mg TL Q6H PRN #10 tablet 01/03/19 dexAMETHasone [Decadron] 4 mg PO DAILY #5 tablet 01/03/19 Ibuprofen [Motrin] 800 mg PO Q8H PRN #30 tablet 01/06/19 Promethazine [Phenergan] 25 mg PO Q6H PRN #10 tab 01/06/19 amLODIPine [Norvasc] 5 mg PO ONCE 01/06/19 01/06/19 - Allergies Allergies/Adverse Reactions: Allergies Allergy/AdvReac Type Severity Reaction Status Date / Time No Known Drug Allergies Allergy Verified 05/17/20 22:06 - Social History Does the pt smoke?: No Smoking Status: Never smoker Does the pt drink ETOH?: No Does the pt have substance abuse?: No - Immunizations Immunizations are current?: Yes - POLST Patient has POLST: No PD ED PE NORMAL - Vitals Vital signs reviewed: Yes - General General: Alert and oriented X 3, No acute distress, Well developed/nourished - HEENT HEENT: Moist mucous membranes - Neck Neck: Supple, no meningeal sign - Cardiac Cardiac: RRR - Respiratory Respiratory: No respiratory distress, Clear bilaterally - Derm Derm: Warm and dry - Neuro Neuro: Alert and oriented X 3 - Psych Psych: Normal mood, Normal affect Results - Vitals Vitals: Vital Signs - 24 hr 05/18/20 05/18/20 19:15 20:26 Temperature 36.1 C L 36.6 C Heart Rate 116 H 109 H Respiratory 18 20 Rate Blood Pressure 144/79 H 132/81 H O2 Saturation 98 99 Oxygen O2 Source Room air PD MEDICAL DECISION MAKING - ED course Complexity details: considered differential, d/w patient, d/w family ED course: Patient given her 1 g infusion of Solu-Medrol as directed by her neurologist. She will return tomorrow for the third infusion. She will then follow-up with her neurologist on Wednesday. This document was made in part using voice recognition software. While efforts are made to proofread this document, sound alike and grammatical errors may occur. Departure - Departure Disposition: 01 Home, Self Care Clinical Impression: Multiple sclerosis Condition: Good Comments: Return tomorrow for the third infusion.
[2020-05-18] MEDS ORDERED: WATER FOR INJECTION,STERILE 20 ML ONE (19:26)
[2020-05-18 20:27] VITALS: BP 132/81
== END 2020-05-18 20:48 | disposition home or self-care (01) ==
LOC: ED 19:12
DX: G35 Multiple sclerosis (principal); I10 Essential (primary) hypertension; Z79.82 Long term (current) use of aspirin
CPT/HCPCS: 96365; 99284

== ENCOUNTER 2020-05-19 15:27 | Emergency (ER) | payer MEDICAID ==
[2020-05-19] MEDS ORDERED: methylPREDNISolone SUCCINATE 1,000 MG in SODIUM CHLORIDE 0.9% 250 ML IV STA (15:31)
--- NOTE | 2020-05-19 15:36 | ED Physician Documentation ---
History of Present Illness - Stated complaint Stated Complaint: INFUSION - History obtained from History obtained from: Patient, Family - History of Present Illness Timing: Today Pain level max: 0 Pain level now: 0 - Additonal information Additional information: Patient is here for her infusion of Solu-Medrol. This is her third dose. She is scheduled to see her neurologist tomorrow She was diagnosed with multiple sclerosis on Wednesday evening. Her neurologist has requested the Solu-Medrol infusions. Patient has tolerated the last 2 well. Currently feeling well. No significant side effects. 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, Tubal ligation - Present Medications Home Medications: Ambulatory Orders Medication Instructions Recorded Confirmed Aspirin [Adult Aspirin] 81 mg PO DAILY 09/08/18 09/08/18 Cholecalciferol [Vitamin D3] 5,000 unit PO DAILY 09/08/18 09/08/18 Levothyroxine [Synthroid] 75 mcg PO QDAC 09/08/18 09/08/18 [place]-3/Dha/Epa/Fish Oil [Fish Oil 1 each PO DAILY 09/08/18 09/08/18 1,000 mg Softgel] Omeprazole 20 mg PO DAILY 09/08/18 09/08/18 Propranolol [Inderal] 10 mg PO BID PRN 09/08/18 09/08/18 Sertraline [Zoloft] 25 mg PO DAILY 09/08/18 09/08/18 Topiramate [Topamax] 25 mg PO QPM 09/08/18 09/08/18 lisinopriL [Lisinopril] 10 mg PO DAILY 09/08/18 09/08/18 Ergotamine Tartrate/Caffeine 1 each PO Q6H PRN #15 tablet 01/03/19 [Cafergot Tablet] Naproxen 375 mg PO BID #20 tablet 01/03/19 Ondansetron Odt [Zofran] 4 mg TL Q6H PRN #10 tablet 01/03/19 dexAMETHasone [Decadron] 4 mg PO DAILY #5 tablet 01/03/19 Ibuprofen [Motrin] 800 mg PO Q8H PRN #30 tablet 01/06/19 Promethazine [Phenergan] 25 mg PO Q6H PRN #10 tab 01/06/19 amLODIPine [Norvasc] 5 mg PO ONCE 01/06/19 01/06/19 - Allergies Allergies/Adverse Reactions: Allergies Allergy/AdvReac Type Severity Reaction Status Date / Time No Known Drug Allergies Allergy Verified 05/19/20 15:47 - Social History Does the pt smoke?: No Smoking Status: Never smoker Does the pt drink ETOH?: No Does the pt have substance abuse?: No - Immunizations Immunizations are current?: Yes - POLST Patient has POLST: No PD ED PE NORMAL - Vitals Vital signs reviewed: Yes - General General: Alert and oriented X 3, No acute distress, Well developed/nourished - HEENT HEENT: PERRL, Moist mucous membranes - Neck Neck: Supple, no meningeal sign - Cardiac Cardiac: RRR, Strong equal pulses - Respiratory Respiratory: No respiratory distress, Clear bilaterally - Abdomen Abdomen: Soft, Non tender, Non distended - Derm Derm: Warm and dry - Extremities Extremities: No edema - Neuro Neuro: Alert and oriented X 3 - Psych Psych: Normal mood, Normal affect Results - Vitals Vitals: Vital Signs - 24 hr 05/19/20 05/19/20 05/19/20 15:47 15:49 18:11 Temperature 36.5 C 36.5 C Heart Rate 97 97 Respiratory 18 18 18 Rate Blood Pressure 124/88 H 124/88 H 128/68 O2 Saturation 100 97 05/19/20 05/19/20 18:12 18:14 Temperature Heart Rate 89 89 Respiratory 16 Rate Blood Pressure 147/86 H O2 Saturation 100 100 Oxygen O2 Source Room air - Labs Labs: Laboratory Tests 05/19/20 05/19/20 05/19/20 16:10 16:10 18:01 WBC 24.6 H RBC 4.41 Hgb 12.1 Hct 38.0 MCV 86.2 MCH 27.4 MCHC 31.8 L RDW 14.7 Plt Count 390 MPV 10.6 Neut # (Auto) 21.1 H Lymph # (Auto) 1.6 [place] # (Auto) 1.2 H Eos # (Auto) 0.0 Baso # (Auto) 0.1 Absolute Nucleated RBC 0.00 Band Neuts % (Manual) Not Reportable Abnorm Lymph % (Manual) Not Reportable Nucleated RBC % 0.0 Neutrophils # (Manual) Not Reportable Lymphocytes # (Manual) Not Reportable Monocytes # (Manual) Not Reportable Eosinophils # (Manual) Not Reportable Basophils # (Manual) Not Reportable Differential Comment MANUAL=AUTO DIFF Manual Slide Review Indicated Platelet Estimate NORMAL (130-450,000) Platelet Morphology NORMAL APPEARANCE RBC Morph Micro Appear NORMAL APPEARANCE Sodium 135 Potassium 3.7 Chloride 102 Carbon Dioxide 18 L Anion Gap 15.0 H BUN 21 H Creatinine 0.9 Estimated GFR (MDRD) 71 L Glucose 468 H POC Whole Bld Glucose 421 H Calcium 8.4 L PD MEDICAL DECISION MAKING - ED course Complexity details: reviewed old records, reviewed results, re-evaluated patient, considered differential, d/w patient, d/w family ED course: Patient is hyperglycemic. Recently started Lantus. Given IV fluids and insulin here. Blood sugar did decrease. No evidence of DKA. No vomiting. No abdominal pain. We will have her increase her Lantus at home from 26 units to 30 units. We will have her follow-up with her doctor for further care. Patient counseled regarding signs and symptoms for which I believe and urgent re- evaluation would be necessary. Patient with good understanding of and agreement to plan and is comfortable going home at this time This document was made in part using voice recognition software. While efforts are made to proofread this document, sound alike and grammatical errors may occur. Patient did receive her 1 g of Solu-Medrol. She will follow-up with her neurologist tomorrow. Departure - Departure Disposition: 01 Home, Self Care Clinical Impression: Multiple sclerosis, Hyperglycemia due to diabetes mellitus Condition: Good Instructions: Multiple Sclerosis Follow-Up: Riaz Evangelista MD [Primary Care Provider] - Comments: Call your neurologist tomorrow. Follow-up with them for further care. The steroids have spiked your blood sugar as well. Continue to monitor this at home. Return if you worsen, especially for fevers, vomiting or abdominal pain. Discharge Date/Time: 05/19/20 18:16
[2020-05-19 16:20] LABS: BASOPHILS # (AUTO) 0.1 10^3/uL (0.0-0.1); BASOPHILS % (AUTO) 0.4 %; HGB - HEMOGLOBIN 12.1 g/dL (12.0-16.0); LYMPHOCYTES # (AUTO) 1.6 10^3/uL (1.5-3.5); LYMPHOCYTES % (AUTO) 6.5 %; MEAN CORPUSCULAR HEMOGLOBIN 27.4 pg (27.0-31.0); MEAN CORPUSCULAR HGB CONC 31.8 g/dL (32.0-36.0); MEAN CORPUSCULAR VOLUME 86.2 fL (81.0-99.0); MEAN PLATELET VOLUME 10.6 fL (7.9-10.8); MONOCYTES # (AUTO) 1.2 10^3/uL (0.0-1.0); MONOCYTES % (AUTO) 4.8 %; NEUTROPHILS # (AUTO) 21.1 10^3/uL (1.5-6.6); NEUTROPHILS % (AUTO) 85.7 %; PLT - PLATELET COUNT 390 10^3/uL (130-450); RED BLOOD COUNT 4.41 10^6/uL (4.20-5.40); RED CELL DISTRIBUTION WIDTH 14.7 % (12.0-15.0); WHITE BLOOD COUNT 24.6 x10^3/uL (4.8-10.8)
[2020-05-19 16:39] LABS: CALCIUM 8.4 mg/dL (8.5-10.3); CREATININE 0.9 mg/dL (0.4-1.0)
[2020-05-19] MEDS ORDERED: SODIUM CHLORIDE 0.9% 1,000 ML IV STA ×2 (16:42→16:43)
[2020-05-19] MEDS ORDERED: INSULIN REGULAR HUMAN 100 UNIT/1 ML 10 ML MDV SUBQ STA (16:42)
[2020-05-19 17:26] LABS: DIFFERENTIAL COMMENT MANUAL=AUTO DIFF; PLATELET ESTIMATE, MANUAL NORMAL (130-450,000) (NORMAL); PLATELET MORPHOLOGY NORMAL APPEARANCE (NORMAL); RBC MORPHOLOGY (MULTIPLE) NORMAL APPEARANCE (NORMAL)
[2020-05-19 18:14] VITALS: BP 147/86
== END 2020-05-19 18:16 | disposition home or self-care (01) ==
LOC: ED 15:27
DX: G35 Multiple sclerosis (principal); E11.65 Type 2 diabetes mellitus with hyperglycemia; I10 Essential (primary) hypertension; Z79.82 Long term (current) use of aspirin
CPT/HCPCS: 36415; 80048; 85025; 96361; 96365; 99284; J1815

== ENCOUNTER 2020-06-03 07:40 | Outpatient (CLI) | payer MEDICAID ==
[2020-06-03 11:54] LABS: BASOPHILS # (AUTO) 0.1 10^3/uL (0.0-0.1); EOSINOPHILS # (AUTO) 0.2 10^3/uL (0.0-0.7); EOSINOPHILS % (AUTO) 1.7 %; HGB - HEMOGLOBIN 12.2 g/dL (12.0-16.0); LYMPHOCYTES # (AUTO) 2.3 10^3/uL (1.5-3.5); MEAN CORPUSCULAR HEMOGLOBIN 26.9 pg (27.0-31.0); MEAN CORPUSCULAR HGB CONC 31.1 g/dL (32.0-36.0); MEAN CORPUSCULAR VOLUME 86.5 fL (81.0-99.0); MEAN PLATELET VOLUME 10.8 fL (7.9-10.8); MONOCYTES # (AUTO) 0.7 10^3/uL (0.0-1.0); MONOCYTES % (AUTO) 6.6 %; NEUTROPHILS # (AUTO) 6.9 10^3/uL (1.5-6.6); NEUTROPHILS % (AUTO) 65.8 %; PLT - PLATELET COUNT 286 10^3/uL (130-450); RED BLOOD COUNT 4.53 10^6/uL (4.20-5.40); RED CELL DISTRIBUTION WIDTH 15.1 % (12.0-15.0); WHITE BLOOD COUNT 10.5 x10^3/uL (4.8-10.8)
[2020-06-03 13:16] LABS: CALCIUM 8.3 mg/dL (8.5-10.3); CREATININE 0.6 mg/dL (0.4-1.0)
[2020-06-03 13:17] LABS: HB2 TOTAL 13.2 g/dL; HEMOGLOBIN A1C 1.07 g/dL; HEMOGLOBIN A1C % 9.6 % (4.6-6.2)
[2020-06-03 13:21] LABS: ALBUMIN 3.6 g/dL (3.2-5.5); ALKALINE PHOSPHATASE 89 IU/L (42-121); ALT ALANINE AMINOTRANSFERASE 17 IU/L (10-60); AST ASPARTATE AMINOTRANSFERASE 14 IU/L (10-42); BILIRUBIN,TOTAL 0.5 mg/dL (0.2-1.0); TOTAL PROTEIN 6.7 g/dL (6.7-8.2)
[2020-06-03 13:38] LABS: BILIRUBIN,DIRECT < 0.1 mg/dL (0.1-0.5)
[2020-06-05 15:09] LABS: ANA SCREEN NEGATIVE (NEGATIVE)
== END 2020-06-03 23:59 | disposition home or self-care (01) ==
LOC: LAB.WCP 07:40
PROVIDERS: ATTEND Psychiatry & Neurology Neurology
DX: G35 Multiple sclerosis (principal); M54.9 Dorsalgia, unspecified
CPT/HCPCS: 36415; 80048; 80076; 81599; 82607; 83036; 85025; 86038; 86480; 86592; 86617; 86618

== ENCOUNTER 2020-07-16 12:55 | Outpatient (CLI) | payer MEDICAID | END 2020-07-16 12:56 | disposition home or self-care (01) | LOC: COV 12:55 | PROVIDERS: ATTEND Family Medicine | DX: M79.10 Myalgia, unspecified site (principal); R53.83 Other fatigue; R19.7 Diarrhea, unspecified; Z20.828 Contact with and (suspected) exposure to other viral communicable diseases ==

== ENCOUNTER 2020-08-26 09:32 | Outpatient (CLI) | payer MEDICAID ==
[2020-08-26 13:53] LABS: ALBUMIN 4.1 g/dL (3.2-5.5); ALKALINE PHOSPHATASE 78 IU/L (42-121); ALT ALANINE AMINOTRANSFERASE 17 IU/L (10-60); AST ASPARTATE AMINOTRANSFERASE 15 IU/L (10-42); BILIRUBIN,TOTAL 0.4 mg/dL (0.2-1.0); TOTAL PROTEIN 7.9 g/dL (6.7-8.2)
[2020-08-26 13:55] LABS: BILIRUBIN,DIRECT < 0.1 mg/dL (0.1-0.5)
[2020-08-26 13:55] LABS: BUN - BLOOD UREA NITROGEN 12 mg/dL (6-20); CALCIUM 9.3 mg/dL (8.5-10.3); CARBON DIOXIDE - CO2 24 mmol/L (21-32); CHLORIDE 101 mmol/L (101-111); CHOL/HDL RATIO 3.7 (<4.4); CHOLESTEROL 214 mg/dL; CREATININE 0.5 mg/dL (0.4-1.0); GLUCOSE 180 mg/dL (70-100); HDL CHOLESTEROL 58 mg/dL; LDL CHOLESTEROL,CALCULATED 125 mg/dL; LDL/HDL RATIO 2.2 (<4.4); SODIUM 136 mmol/L (135-145); VLDL CHOLESTEROL 31 mg/dL
[2020-08-26 14:36] LABS: HEMOGLOBIN A1c% 8.8 % (4.27-6.07)
== END 2020-08-26 23:59 | disposition home or self-care (01) ==
LOC: LAB.WCP 09:32
PROVIDERS: ATTEND Psychiatry & Neurology Neurology
DX: G35 Multiple sclerosis (principal); R11.0 Nausea; R10.811 Right upper quadrant abdominal tenderness; E11.9 Type 2 diabetes mellitus without complications; E78.1 Pure hyperglyceridemia
CPT/HCPCS: 36415; 80048; 80061; 80076; 81599; 82607; 83036; 83721; 86480; 86592; 86618

== ENCOUNTER 2020-10-02 13:32 | Emergency (ER) | payer MEDICAID ==
--- NOTE | 2020-10-02 14:11 | ED Physician Documentation ---
History of Present Illness - Stated complaint Stated Complaint: BODY PX - Chief complaint Chief Complaint: General - History obtained from History obtained from: Patient, Family - History of Present Illness Timing: Today - Additonal information Additional information: 34 y/o female with a history of MS was in her usual good state of health this past week and was asymptomatic yesterday and this morning she awakens with pain in all her extremities and she was not able to go to work. The pain was so bad that she was having trouble walking and had to call her to bring her to the ED. She called her neurologist with these symptoms and was asked to come to the ED for evaluation. She has been diagnosed in April of this year and she had solumedrol infusion done here and has been on medication for her MS and has resolved her symptoms and has gone back to work. She does not feel ill otherwise. Review of Systems Constitutional: reports: Myalgias. denies: Fever Eyes: denies: Decreased vision Ears: denies: Ear pain Nose: denies: Rhinorrhea / runny nose, Congestion Throat: denies: Sore throat Cardiac: denies: Chest pain / pressure, Palpitations Respiratory: denies: Dyspnea, Cough GI: reports: Constipation. denies: Abdominal Pain, Nausea, Vomiting, Diarrhea : denies: Dysuria, Frequency Skin: denies: Rash Musculoskeletal: reports: Back pain, Extremity pain. 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 ligation - Present Medications Home Medications: Ambulatory Orders Medication Instructions Recorded Confirmed Aspirin [Adult Aspirin] 81 mg PO DAILY 09/08/18 09/08/18 [place]-3/Dha/Epa/Fish Oil [Fish Oil 1 each PO DAILY 09/08/18 09/08/18 1,000 mg Softgel] amLODIPine [Norvasc] 5 mg PO ONCE 01/06/19 01/06/19 Oxycodone HCl/Acetaminophen 1 - 2 each PO Q6H PRN #14 tablet 10/02/20 [Percocet 5-325 mg Tablet] Sulfamethox/Trimeth 800/160 1 each PO BID #14 tablet 10/02/20 [Bactrim Ds] - Allergies Allergies/Adverse Reactions: Allergies Allergy/AdvReac Type Severity Reaction Status Date / Time No Known Drug Allergies Allergy Verified 10/02/20 13:40 - Social History Does the pt smoke?: No Smoking Status: Never smoker Does the pt drink ETOH?: No Does the pt have substance abuse?: No - Immunizations Immunizations are current?: Yes - POLST Patient has POLST: No PD ED PE NORMAL - Vitals Vital signs reviewed: Yes (tachy and hypertensive ) - General General: Alert and oriented X 3, No acute distress, Well developed/nourished - HEENT HEENT: Atraumatic, PERRL, EOMI - Neck Neck: Supple, no meningeal sign, No bony TTP - Cardiac Cardiac: RRR, No murmur - Respiratory Respiratory: No respiratory distress, Clear bilaterally - Abdomen Abdomen: Normal bowel sounds, Soft, Non tender, Non distended, No organomegaly - Back Back: No spinal TTP, Other (bilateral CVA tenderness ) - Derm Derm: Normal color, Warm and dry, No rash - Extremities Extremities: No deformity, No edema, Other (There is tenderness to touch to the right lower ext from the hip down and the left from the knee down. The left ankle and foot are numb. There is pain to palp right forearm to hand and left shoulder to hand. ) - Neuro Neuro: No motor deficit, No sensory deficit Eye Opening: Spontaneous Motor: Obeys Commands Verbal: Oriented GCS Score: 15 - Psych Psych: Normal mood, Normal affect Results - Vitals Vitals: Vital Signs - 24 hr 10/02/20 10/02/20 10/02/20 13:37 15:40 19:10 Temperature 36.2 C L 36.9 C 37.0 C Heart Rate 101 H 98 100 Respiratory 18 18 18 Rate Blood Pressure 123/83 H 134/81 H 110/74 O2 Saturation 98 97 98 Oxygen O2 Source Room air - Labs Labs: Laboratory Tests 10/02/20 10/02/20 10/02/20 15:10 15:15 15:15 WBC 13.9 H RBC 4.62 Hgb 13.0 Hct 40.1 MCV 86.8 MCH 28.1 MCHC 32.4 RDW 13.9 Plt Count 383 MPV 9.5 Neut # (Auto) 9.3 H Lymph # (Auto) 2.9 [place] # (Auto) 0.9 Eos # (Auto) 0.4 Baso # (Auto) 0.1 Absolute Nucleated RBC 0.00 Nucleated RBC % 0.0 ESR Sodium 138 Potassium 3.6 Chloride 99 L Carbon Dioxide 22 Anion Gap 17.0 H BUN 13 Creatinine 0.6 Estimated GFR (MDRD) 114 Glucose 152 H Calcium 9.0 Total Bilirubin 0.5 AST 14 ALT 15 Alkaline Phosphatase 74 C-Reactive Protein Total Protein 7.6 Albumin 4.0 Globulin 3.6 Albumin/Globulin Ratio 1.1 Lipase 26 Urine Color RED/BLOODY Urine Clarity BLOODY Urine pH 5.0 Ur Specific Brogan >=1.030 H Urine Protein 100 H Urine Glucose (UA) NEGATIVE Urine Ketones TRACE Urine Occult Blood LARGE H Urine Nitrite POSITIVE H Urine Bilirubin NEGATIVE Urine Urobilinogen 1 (NORMAL) Ur Leukocyte Esterase SMALL H Urine RBC TNTC H Urine WBC 11-25 H Ur Squamous Epith Cells RARE Squamous Urine Bacteria Many H Ur Microscopic Review INDICATED Urine Culture Comments INDICATED Urine HCG, Qual NEGATIVE 10/02/20 10/02/20 15:15 15:15 WBC RBC Hgb Hct MCV MCH MCHC RDW Plt Count MPV Neut # (Auto) Lymph # (Auto) [place] # (Auto) Eos # (Auto) Baso # (Auto) Absolute Nucleated RBC Nucleated RBC % ESR 22 H Sodium Potassium Chloride Carbon Dioxide Anion Gap BUN Creatinine Estimated GFR (MDRD) Glucose Calcium Total Bilirubin AST ALT Alkaline Phosphatase C-Reactive Protein 3.6 H Total Protein Albumin Globulin Albumin/Globulin Ratio Lipase Urine Color Urine Clarity Urine pH Ur Specific Brogan Urine Protein Urine Glucose (UA) Urine Ketones Urine Occult Blood Urine Nitrite Urine Bilirubin Urine Urobilinogen Ur Leukocyte Esterase Urine RBC Urine WBC Ur Squamous Epith Cells Urine Bacteria Ur Microscopic Review Urine Culture Comments Urine HCG, Qual - Rads (name of study) MRI Radiology: Prelim report reviewed (Impression: 1. No acute intracranial findings. Deep and periventricular white matter changes likely associated with multiple sclerosis. No enhancement to suggest active demyelinization.), EMP read indepedently, See rad report PD MEDICAL DECISION MAKING - ED course Complexity details: reviewed results, re-evaluated patient, considered differential, d/w patient, d/w family ED course: 34-year-old female with a history of MS has developed acute pain in an odd distribution of her extremities with a specific complaint that it hurts to touch . She certainly is tender to touch and the distal distribution as outlined in the examination. I discussed the case with the patient's neurologist Dr. Dinesh Figueroa and he recommends obtaining a an MRI with and without contrast to delineate whether this is flare of MS or return of symptoms related to an inflammatory process. He recommends checking inflammatory markers and if there is evidence of infection to treat the infection. If there is evidence of acute flare of MS on the MRI further treatment is indicated. We did not find further evidence of acute flare of MS and the patient has evidence of urinary tract infection with bilateral flank pain consistent with pyelonephritis. She is administered intravenous Rocephin. She is administered pain medication for pain control and has improvement with the use of Dilaudid. Departure - Departure Disposition: 01 Home, Self Care Clinical Impression: Pyelonephritis Condition: Stable Instructions: ED Kidney Infec Female Follow-Up: Riaz Evangelista MD [Primary Care Provider] - Prescriptions: Sulfamethox/Trimeth 800/160 [Bactrim Ds] 1 each PO BID #14 tablet Oxycodone HCl/Acetaminophen [Percocet 5-325 mg Tablet] 1 - 2 each PO Q6H PRN #14 tablet PRN Reason: pain
[2020-10-02 15:22] LABS: BASOPHILS # (AUTO) 0.1 10^3/uL (0.0-0.1); BASOPHILS % (AUTO) 0.9 %; EOSINOPHILS # (AUTO) 0.4 10^3/uL (0.0-0.7); LYMPHOCYTES # (AUTO) 2.9 10^3/uL (1.5-3.5); LYMPHOCYTES % (AUTO) 20.9 %; MEAN CORPUSCULAR HEMOGLOBIN 28.1 pg (27.0-31.0); MEAN CORPUSCULAR HGB CONC 32.4 g/dL (32.0-36.0); MEAN CORPUSCULAR VOLUME 86.8 fL (81.0-99.0); MEAN PLATELET VOLUME 9.5 fL (7.9-10.8); MONOCYTES # (AUTO) 0.9 10^3/uL (0.0-1.0); MONOCYTES % (AUTO) 6.6 %; NEUTROPHILS # (AUTO) 9.3 10^3/uL (1.5-6.6); NEUTROPHILS % (AUTO) 66.9 %; PLT - PLATELET COUNT 383 10^3/uL (130-450); RED BLOOD COUNT 4.62 10^6/uL (4.20-5.40); RED CELL DISTRIBUTION WIDTH 13.9 % (12.0-15.0); WHITE BLOOD COUNT 13.9 x10^3/uL (4.8-10.8)
[2020-10-02 15:27] LABS: BILIRUBIN,URINE NEGATIVE (NEGATIVE); GLUCOSE, URINE (UA) NEGATIVE (NEGATIVE); KETONES,URINE (UA) TRACE mg/dL (NEGATIVE); LEUKOCYTE ESTERASE, URINE SMALL (NEGATIVE); NITRITE,URINE POSITIVE (NEGATIVE); OCCULT BLOOD,URINE LARGE (NEGATIVE); PROTEIN,URINE 100 mg/dL (NEGATIVE); UROBILINOGEN,URINE 1 (NORMAL) E.U./dL (NORMAL)
[2020-10-02 15:33] LABS: ALBUMIN/GLOBULIN RATIO 1.1 (1.0-2.2); BILIRUBIN,TOTAL 0.5 mg/dL (0.2-1.0); CREATININE 0.6 mg/dL (0.4-1.0); TOTAL PROTEIN 7.6 g/dL (6.7-8.2)
[2020-10-02 15:39] LABS: CLARITY,URINE BLOODY (CLEAR)
[2020-10-02 15:40] LABS: HCG UR QUAL NEGATIVE
[2020-10-02] MEDS ORDERED: ONDANSETRON 4 MG/2 ML VIAL IVP STA (15:48)
[2020-10-02] MEDS ORDERED: HYDROmorphone 1 MG/ML CARPUJECT IVP STA (15:48)
[2020-10-02 15:53] LABS: BACTERIA,URINE Many /HPF (None Seen); RBC,URINE TNTC /HPF (0-5); SQUAMOUS EPITHELIAL CELL,UR RARE Squamous (<= Few)
[2020-10-02] MEDS ORDERED: GADOBUTROL 10 MMOL/10 ML VIAL ONE (17:55)
[2020-10-02] MEDS ORDERED: GADOBUTROL 10 MMOL/10 ML VIAL IVP ONE (18:20)
--- NOTE | 2020-10-02 18:46 | MRI Report ---
PROCEDURE: Brain W/WO INDICATIONS: MS with new symptoms CONTRAST: IV CONTRAST: Gadavist ml: 10 TECHNIQUE: Noncontrast axial T1 spin echo, axial T2 fast spin echo, sagittal and axial FLAIR, coronal T2 fast sp in echo, axial gradient echo, axial diffusion and ADC through the brain. After the administration of contrast, axial and coronal T1 spin echo with fat saturation through the brain. COMPARISON: None. FINDINGS: Image quality: Excellent. CSF spaces: Basal cisterns are patent. No extra-axial fluid collections. Ventricles are normal in size and shape. Brain: No midline shift. No intracranial bleeds or masses. No abnormal intracranial enhancement. D eep and periventricular white matter changes are noted adjacent to the left lateral ventricle, and wi thin the midbrain (series 501/image [id number]). Findings are consistent with the given history of multiple sc lerosis. No suspicious enhancement. Brainstem appears normal. Diffusion-weighted images demonstrate no acute ischemic insults. No chronic ischemic insults. Normal intravascular flow voids are present . Skull and face: Calvarial marrow is normal in signal. Orbits appear normal. Sinuses: Sinuses and mastoids appear clear. IMPRESSION: 1. No acute intracranial findings. 2. Deep and periventricular white matter changes likely associated with multiple sclerosis. No enhanc ement to suggest active demyelination. Reviewed by: Shira Arevalo MD on 10/02/2020 6:44 PM PST Approved by: Shira Arevalo MD on 10/02/2020 6:44 PM PST Station ID: [id number]
[2020-10-02] MEDS ORDERED: cefTRIAXone 1 GM in SODIUM CHLORIDE 0.9% MINIBAG 100 ML IV STA (18:58)
[2020-10-02] MEDS ORDERED: cefTRIAXone 1 GM VIAL ONE (19:12)
[2020-10-02 19:53] VITALS: BP 104/50
== END 2020-10-02 19:53 | disposition home or self-care (01) ==
LOC: ED 13:32
DX: N12 Tubulo-interstitial nephritis, not specified as acute or chronic (principal); G35 Multiple sclerosis; I10 Essential (primary) hypertension; Z79.82 Long term (current) use of aspirin
CPT/HCPCS: 36415; 70553; 80053; 81001; 81025; 83690; 85025; 85651; 86140; 87077; 87086; 96365; 96375; 99284; 99285; A9585; J1170; 81003

== ENCOUNTER 2020-12-02 09:16 | Outpatient (CLI) | payer MEDICAID ==
--- NOTE | 2020-12-02 10:38 | XRAY Report ---
PROCEDURE: Cervical Spine w/Flex/Ext INDICATIONS: CERVICALGIA, MS TECHNIQUE: 8 views of the cervical spine were acquired. COMPARISON: None. FINDINGS: Bones: No fractures or dislocations to the T1 level. No suspicious bony lesions. Reversal of the n ormal cervical lordosis is present in the neutral position with the apex at C5. There is normal range of motion between flexion and extension, with preserved normal bony alignment. Bony neural foramina are widely patent. There is a congenitally or surgically absent pedicle on the r ight at C5 and C6. There are cervical ribs at C7 bilaterally. Soft tissues: Prevertebral soft tissues are normal in thickness. IMPRESSION: 1. Persistent kyphosis at C4-5 with preservation of alignment in flexion and extension. 2. Possible absent right pedicle C5 and C6. 3. Bilateral C7 cervical ribs. Reviewed by: Bren Garcia MD on 12/02/2020 10:36 AM PST Approved by: Bren Garcia MD on 12/02/2020 10:36 AM PST Station ID: [id number]
== END 2020-12-02 09:17 | disposition home or self-care (01) ==
LOC: DI 09:16
PROVIDERS: ATTEND Family Medicine
DX: M54.2 Cervicalgia (principal); M40.292 Other kyphosis, cervical region; Q76.5 Cervical rib; G35 Multiple sclerosis

== ENCOUNTER 2021-01-12 13:21 | Emergency (ER) | payer MEDICAID ==
[2021-01-12] MEDS ORDERED: KETOROLAC 30 MG/ML VIAL IVP STA (14:16)
--- NOTE | 2021-01-12 14:18 | ED Physician Documentation ---
PD HPI ABD PAIN - Stated complaint Stated Complaint: ABD PX - Chief complaint Chief Complaint: Abd Pain - History obtained from History obtained from: Patient - Additional information Additional information: 35-year-old woman with diabetes, history of 2 C-sections, multiple sclerosis presents with relatively sudden onset pelvic pain mostly in the right lower quadrant radiating to the back starting today. She is due for her menses soon but is not late. She says no possibility of . Denies fevers or nausea. She gets an increase in pelvic pain when she urinates but does not have dysuria or frequency or foul-smelling urine. Pain also gets worse with a bowel movement but her bowel movements are otherwise normal and she has no rectal pain. 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 : None HEENT: None Psych: Anxiety, Panic attacks, Post traumatic stress disorder Musculoskeletal: None Derm: Eczema - Past Surgical History Past Surgical History: Yes /CRYSTALIZER OPERATOR: section, Tubal ligation - Present Medications Home Medications: Ambulatory Orders Medication Instructions Recorded Confirmed Aspirin [Adult Aspirin] 81 mg PO DAILY 09/08/18 01/12/21 amLODIPine [Norvasc] 5 mg PO ONCE 01/06/19 01/12/21 Gabapentin [Neurontin] 300 mg PO HS 01/12/21 01/12/21 Insulin Aspart [NovoLOG] 8 units SQ TID 01/12/21 01/12/21 Insulin Glargine [Lantus Solostar] 31 unit SQ HS 01/12/21 01/12/21 Lisinopril [Zestril] 20 mg PO DAILY 01/12/21 01/12/21 carBAMazepine [Carbamazepine ER] 200 mg PO BID 01/12/21 01/12/21 - Allergies Allergies/Adverse Reactions: Allergies Allergy/AdvReac Type Severity Reaction Status Date / Time No Known Drug Allergies Allergy Verified 01/12/21 13:29 - Social History Does the pt smoke?: No Smoking Status: Never smoker Does the pt drink ETOH?: No Does the pt have substance abuse?: No - Immunizations Immunizations are current?: Yes - POLST Patient has POLST: No PD ED PE NORMAL - Vitals Vital signs reviewed: Yes - General General: Alert and oriented X 3, No acute distress - HEENT HEENT: PERRL, EOMI - Neck Neck: Supple, no meningeal sign, No bony TTP - Cardiac Cardiac: RRR, No murmur - Respiratory Respiratory: No respiratory distress, Clear bilaterally - Abdomen Abdomen: Soft, Other (TTP low abd staci RLQ without surgical signs. Normal) - Back Back: No CVA TTP, No spinal TTP - Extremities Extremities: No deformity, No edema, No calf tenderness / cord - Neuro Neuro: Alert and oriented X 3, Normal speech Results - Vitals Vitals: Vital Signs - 24 hr 01/12/21 13:26 Temperature 36.2 C L Heart Rate 102 H Respiratory 16 Rate Blood Pressure 129/83 H O2 Saturation 99 Oxygen O2 Source Room air - Labs Labs: Laboratory Tests 01/12/21 01/12/21 01/12/21 13:52 14:38 14:38 WBC 15.1 H RBC 4.43 Hgb 12.5 Hct 37.9 MCV 85.6 MCH 28.2 MCHC 33.0 RDW 14.1 Plt Count 332 MPV 10.3 Neut # (Auto) 11.1 H Lymph # (Auto) 2.5 [place] # (Auto) 0.9 Eos # (Auto) 0.4 Baso # (Auto) 0.1 Absolute Nucleated RBC 0.00 Nucleated RBC % 0.0 Sodium 139 Potassium 3.6 Chloride 104 Carbon Dioxide 22 Anion Gap 13.0 BUN 14 Creatinine 0.5 Estimated GFR (MDRD) 140 Glucose 108 H Calcium 9.4 Total Bilirubin 0.2 AST 13 ALT 13 Alkaline Phosphatase 78 Total Protein 7.7 Albumin 3.7 Globulin 4.0 Albumin/Globulin Ratio 0.9 L Lipase 19 L Urine Color YELLOW Urine Clarity CLEAR Urine pH 6.0 Ur Specific [place] 1.025 Urine Protein NEGATIVE Urine Glucose (UA) NEGATIVE Urine Ketones NEGATIVE Urine Occult Blood NEGATIVE Urine Nitrite NEGATIVE Urine Bilirubin NEGATIVE Urine Urobilinogen 0.2 (NORMAL) Ur Leukocyte Esterase NEGATIVE Ur Microscopic Review NOT INDICATED Urine Culture Comments NOT INDICATED Urine HCG, Qual NEGATIVE PD MEDICAL DECISION MAKING - ED course ED course: This young lady has pelvic pain which on examination seems to lateralize to the right lower quadrant and is associated with a leukocytosis. A CT was done with IV contrast and demonstrates a right ovarian hemorrhagic cyst but no evidence of appendicitis. She was relieved. Departure - Departure Disposition: 01 Home, Self Care Clinical Impression: Cyst of ovary Qualifiers: Laterality: right Qualified Code(s): N83.201 - Unspecified ovarian cyst, right side Condition: Stable Record reviewed to determine appropriate education?: Yes Instructions: ED Cyst Ovarian Comments: Call your doctor to arrange a follow-up appointment, make the next available appointment. In the interim, return anytime if worse or if new symptoms develop. Forms: Activity restrictions
[2021-01-12 14:48] LABS: BILIRUBIN,URINE NEGATIVE (NEGATIVE); GLUCOSE, URINE (UA) NEGATIVE (NEGATIVE); KETONES,URINE (UA) NEGATIVE (NEGATIVE); LEUKOCYTE ESTERASE, URINE NEGATIVE (NEGATIVE); NITRITE,URINE NEGATIVE (NEGATIVE); OCCULT BLOOD,URINE NEGATIVE (NEGATIVE); PROTEIN,URINE NEGATIVE (NEGATIVE); UROBILINOGEN,URINE 0.2 (NORMAL) E.U./dL (NORMAL)
[2021-01-12] MEDS ORDERED: IOVERSOL 320 100 ML VIAL IVP ONE ×2 (14:53→15:36)
[2021-01-12 14:54] LABS: BASOPHILS # (AUTO) 0.1 10^3/uL (0.0-0.1); BASOPHILS % (AUTO) 0.6 %; EOSINOPHILS # (AUTO) 0.4 10^3/uL (0.0-0.7); EOSINOPHILS % (AUTO) 2.8 %; HGB - HEMOGLOBIN 12.5 g/dL (12.0-16.0); LYMPHOCYTES # (AUTO) 2.5 10^3/uL (1.5-3.5); LYMPHOCYTES % (AUTO) 16.5 %; MEAN CORPUSCULAR HEMOGLOBIN 28.2 pg (27.0-31.0); MEAN CORPUSCULAR VOLUME 85.6 fL (81.0-99.0); MEAN PLATELET VOLUME 10.3 fL (7.9-10.8); MONOCYTES # (AUTO) 0.9 10^3/uL (0.0-1.0); MONOCYTES % (AUTO) 5.9 %; NEUTROPHILS # (AUTO) 11.1 10^3/uL (1.5-6.6); NEUTROPHILS % (AUTO) 73.1 %; PLT - PLATELET COUNT 332 10^3/uL (130-450); RED BLOOD COUNT 4.43 10^6/uL (4.20-5.40); RED CELL DISTRIBUTION WIDTH 14.1 % (12.0-15.0); WHITE BLOOD COUNT 15.1 x10^3/uL (4.8-10.8)
[2021-01-12 14:56] LABS: ALBUMIN 3.7 g/dL (3.2-5.5); ALBUMIN/GLOBULIN RATIO 0.9 (1.0-2.2); BILIRUBIN,TOTAL 0.2 mg/dL (0.2-1.0); CALCIUM 9.4 mg/dL (8.5-10.3); CREATININE 0.5 mg/dL (0.4-1.0); TOTAL PROTEIN 7.7 g/dL (6.7-8.2)
[2021-01-12 14:59] LABS: CLARITY,URINE CLEAR (CLEAR); HCG UR QUAL NEGATIVE
--- NOTE | 2021-01-12 15:53 | CT Report ---
PROCEDURE: Abdomen/Pelvis W INDICATIONS: IV only, RLQ pain CONTRAST: IV CONTRAST: Optiray 320 ml: 100 PO CONTRAST: *NO PO CONTRAST TECHNIQUE: After the administration of nonionic IV contrast, 5 mm thick sections acquired from the diaphragms to the symphysis. 5 mm thick coronal and sagittal reformats were acquired. For radiation dose reducti on, the following was used: automated exposure control, adjustment of mA and/or kV according to warren ent size. COMPARISON: 09/08/2018 FINDINGS: Image quality: Excellent. ABDOMEN: Lung bases: Lung bases are clear. Heart size is normal. There is a small hiatal hernia seen. Solid organs: The liver is prominent in size and demonstrates fatty infiltration. No focal liver lesi ons are seen. The spleen is near the upper limits of normal for size. No focal splenic lesions are se en. Gallbladder is relatively collapsed at the time of this study. Biliary system is non dilated. Pancreas enhances normally. No adrenal nodules. Kidneys demonstrate normal size and enhancement, w ithout hydronephrosis. Peritoneum and bowel: In this patient with this given history, scrutiny is given to the appendix. Th e appendix is well-seen and is normal. No focal right lower quadrant inflammatory changes are seen. Bowel loops demonstrate normal wall thickness and caliber. No free fluid or air. Nodes and vessels: No retroperitoneal or mesenteric adenopathy by size criteria. Aorta and inferior vena cava are normal in size. Miscellaneous: No ventral hernias. PELVIS: Genitourinary: Bladder wall thickness is normal. The uterus is unremarkable. There is a rim-enhanci ng cyst within the right ovary, as on series 3 image 69 and on series 6 image 30, measuring 2.3 cm. Miscellaneous: No inguinal hernias or adenopathy. Bones: No suspicious bony lesions. No vertebral body compression fractures. IMPRESSION: Normal appendix. There is a hemorrhagic cyst of the right ovary, which may explain the patient's right lower quadrant pain. Incidental note is made of: Small hiatal hernia Fatty liver infiltration Reviewed by: Jeancarlos Padilla MD on 01/12/2021 2:51 PM [facility] Approved by: Jeancarlos Padilla MD on 01/12/2021 2:51 PM AK[facility] Station ID: [id number]
[2021-01-12] MEDS ORDERED: IBUPROFEN 800 MG TABLET PO STA (16:05)
[2021-01-12 16:17] VITALS: BP 128/80
== END 2021-01-12 16:18 | disposition home or self-care (01) ==
LOC: ED 13:21
DX: N83.201 Unspecified ovarian cyst, right side (principal); D72.829 Elevated white blood cell count, unspecified; K44.9 Diaphragmatic hernia without obstruction or gangrene; K76.0 Fatty (change of) liver, not elsewhere classified; G35 Multiple sclerosis; I10 Essential (primary) hypertension; E11.9 Type 2 diabetes mellitus without complications; Z79.4 Long term (current) use of insulin; Z79.82 Long term (current) use of aspirin
CPT/HCPCS: 74177; 80053; 81003; 81025; 83690; 85025; 96374; 99284; A9270; Q9967; 81001; 87086

== ENCOUNTER 2021-01-20 11:57 | Emergency (ER) | payer MEDICAID, OTHER ==
[2021-01-20 12:43] LABS: BASOPHILS # (AUTO) 0.1 10^3/uL (0.0-0.1); BASOPHILS % (AUTO) 0.8 %; EOSINOPHILS # (AUTO) 0.5 10^3/uL (0.0-0.7); EOSINOPHILS % (AUTO) 3.1 %; HCT - HEMATOCRIT 38.5 % (37.0-47.0); HGB - HEMOGLOBIN 12.3 g/dL (12.0-16.0); LYMPHOCYTES # (AUTO) 2.1 10^3/uL (1.5-3.5); LYMPHOCYTES % (AUTO) 14.4 %; MEAN CORPUSCULAR HEMOGLOBIN 27.3 pg (27.0-31.0); MEAN CORPUSCULAR HGB CONC 31.9 g/dL (32.0-36.0); MEAN CORPUSCULAR VOLUME 85.4 fL (81.0-99.0); MEAN PLATELET VOLUME 10.2 fL (7.9-10.8); MONOCYTES # (AUTO) 0.9 10^3/uL (0.0-1.0); MONOCYTES % (AUTO) 5.8 %; NEUTROPHILS # (AUTO) 10.8 10^3/uL (1.5-6.6); NEUTROPHILS % (AUTO) 74.2 %; PLT - PLATELET COUNT 386 10^3/uL (130-450); RED BLOOD COUNT 4.51 10^6/uL (4.20-5.40); RED CELL DISTRIBUTION WIDTH 13.9 % (12.0-15.0); WHITE BLOOD COUNT 14.6 x10^3/uL (4.8-10.8)
[2021-01-20 12:45] LABS: BILIRUBIN,URINE NEGATIVE (NEGATIVE); GLUCOSE, URINE (UA) NEGATIVE (NEGATIVE); KETONES,URINE (UA) NEGATIVE (NEGATIVE); LEUKOCYTE ESTERASE, URINE TRACE (NEGATIVE); NITRITE,URINE NEGATIVE (NEGATIVE); OCCULT BLOOD,URINE LARGE (NEGATIVE); PROTEIN,URINE 100 mg/dL (NEGATIVE); UROBILINOGEN,URINE 0.2 (NORMAL) E.U./dL (NORMAL)
[2021-01-20 12:46] LABS: CLARITY,URINE BLOODY (CLEAR); HCG UR QUAL NEGATIVE
[2021-01-20 12:49] LABS: CALCIUM 9.5 mg/dL (8.5-10.3); CREATININE 0.6 mg/dL (0.4-1.0); POTASSIUM 3.7 mmol/L (3.5-5.0)
[2021-01-20 12:54] LABS: BACTERIA,URINE Moderate /HPF (None Seen); RBC,URINE TNTC /HPF (0-5); SQUAMOUS EPITHELIAL CELL,UR RARE Squamous (<= Few)
--- NOTE | 2021-01-20 16:01 | ED Physician Documentation ---
PD HPI FEMALE - Stated complaint Stated Complaint: ABD PX - Chief complaint Chief Complaint: Abd Pain - History obtained from History obtained from: Patient - Additional information Additional information: Pt comes to the ED complaining of 3 days of heavy vaginal bleeding 2 weeks after her last period. Pt states she has RLQ pain for several weeks, and was dx with R ovarian cyst by CT a couple of weeks ago. She has not had an US. Pt states her last period was normal. She has had a tubal ligation. No fevers or chills. No lightheadedness. Pt estimates she is soaking about a pad an hour and has noticed some clots. No other complaints at this time. Review of Systems Ten Systems: 10 systems reviewed and negative Constitutional: reports: Reviewed and negative Eyes: reports: Reviewed and negative Ears: reports: Reviewed and negative Nose: reports: Reviewed and negative Throat: reports: Reviewed and negative Cardiac: reports: Reviewed and negative Respiratory: reports: Reviewed and negative GI: reports: Abdominal Pain : reports: Vaginal bleeding, Irregular menses. denies: Now EGA Skin: reports: Reviewed and negative Musculoskeletal: reports: Reviewed and negative Neurologic: reports: Reviewed and negative Psychiatric: reports: Reviewed and negative Endocrine: reports: Reviewed and negative Immunocompromised: reports: Reviewed and negative PD PAST MEDICAL HISTORY - Past Medical History Cardiovascular: Hypertension Respiratory: None Neuro: CVA, TIA Endocrine/Autoimmune: HyPOthyroidism GI: GERD VALET RUNNER: None : None HEENT: None Psych: Anxiety, Panic attacks, Post traumatic stress disorder Musculoskeletal: None Derm: Eczema - Past Surgical History Past Surgical History: Yes /VALET RUNNER: section, Tubal ligation - Present Medications Home Medications: Ambulatory Orders Medication Instructions Recorded Confirmed Aspirin [Adult Aspirin] 81 mg PO DAILY 09/08/18 01/20/21 amLODIPine [Norvasc] 5 mg PO ONCE 01/06/19 01/20/21 Gabapentin [Neurontin] 300 mg PO HS 01/12/21 01/20/21 Insulin Aspart [NovoLOG] 8 units SQ TID 01/12/21 01/20/21 Insulin Glargine [Lantus Solostar] 31 unit SQ HS 01/12/21 01/20/21 Lisinopril [Zestril] 20 mg PO DAILY 01/12/21 01/20/21 Levonorgestrel-Ethin Estradiol 1 each PO DAILY #28 01/20/21 [Vienva-28 Tablet] - Allergies Allergies/Adverse Reactions: Allergies Allergy/AdvReac Type Severity Reaction Status Date / Time No Known Drug Allergies Allergy Verified 01/20/21 12:03 - Social History Does the pt smoke?: No Smoking Status: Never smoker Does the pt drink ETOH?: No Does the pt have substance abuse?: No - Immunizations Immunizations are current?: Yes - POLST Patient has POLST: No PD ED PE NORMAL - Vitals Vital signs reviewed: Yes - General General: Alert and oriented X 3, No acute distress, Well developed/nourished - HEENT HEENT: Atraumatic, PERRL, EOMI, Moist mucous membranes - Neck Neck: Supple, no meningeal sign - Cardiac Cardiac: RRR, No murmur, Strong equal pulses - Respiratory Respiratory: No respiratory distress, Clear bilaterally - Abdomen Abdomen: Soft, Non distended, Other (Mild inferior RLQ tenderness. No RB/guarding) - Female Female : Other (Normal female genitalia. Moderate vaginal bleeding, with occasional small clot.) - Derm Derm: Warm and dry - Extremities Extremities: No deformity - Neuro Neuro: Alert and oriented X 3 - Psych Psych: Normal mood, Normal affect Results - Vitals Vitals: Oxygen O2 Source Room air - Labs Labs: Microbiology 01/20/21 12:06 Urine Culture - Final Urine,Random 10-50,000 COLONIES/ML Polymicrobial growth including potential pathogens. This is suggestive of skin or other contamination. Laboratory Tests 01/20/21 01/20/21 01/20/21 12:06 12:27 12:27 WBC 14.6 H RBC 4.51 Hgb 12.3 Hct 38.5 MCV 85.4 MCH 27.3 MCHC 31.9 L RDW 13.9 Plt Count 386 MPV 10.2 Neut # (Auto) 10.8 H Lymph # (Auto) 2.1 [place] # (Auto) 0.9 Eos # (Auto) 0.5 Baso # (Auto) 0.1 Absolute Nucleated RBC 0.00 Nucleated RBC % 0.0 Sodium 137 Potassium 3.7 Chloride 102 Carbon Dioxide 21 Anion Gap 14.0 H BUN 13 Creatinine 0.6 Estimated GFR (MDRD) 113 Glucose 157 H Calcium 9.5 Urine Color RED/BLOODY Urine Clarity BLOODY Urine pH 6.0 Ur Specific [place] >=1.030 H Urine Protein 100 H Urine Glucose (UA) NEGATIVE Urine Ketones NEGATIVE Urine Occult Blood LARGE H Urine Nitrite NEGATIVE Urine Bilirubin NEGATIVE Urine Urobilinogen 0.2 (NORMAL) Ur Leukocyte Esterase TRACE H Urine RBC TNTC H Urine WBC 4-5 Ur Squamous Epith Cells RARE Squamous Urine Bacteria Moderate H Ur Microscopic Review INDICATED Urine Culture Comments INDICATED Urine HCG, Qual NEGATIVE - Rads (name of study) pelvic US Radiology: Final report received, EMP read indepedently, See rad report (NAD) PD MEDICAL DECISION MAKING - ED course Complexity details: reviewed old records, reviewed results, re-evaluated patient, considered differential, d/w patient ED course: Pt was worked up with labs, UA, and US. H/H were normal. US did not show any concerning abnormalities. I d/w pt that at this time, I do not find an emergent condition. She has dysfunctional uterine bleeding, and since the degree of bleeding is bothering her, I will start her on a course of OCPs to regulate the bleeding. I have recommended VALET RUNNER follow-up to determine whether pt should stay on OCPs for the longer term. We have discussed the usual indications for return. Departure - Departure Disposition: 01 Home, Self Care Clinical Impression: Dysfunctional uterine bleeding Condition: Stable Instructions: ED Bleed Irregular Vaginal Follow-Up: Toshia Batres MD [Provider Admit Priv/Credential] - Prescriptions: Levonorgestrel-Ethin Estradiol [Vienva-28 Tablet] 1 each PO DAILY #28 Comments: Your blood work and ultrasound look good. Your blood work does not show evidence of you having lost blood, and your ultrasound does not show any abnormalities, other than the ovarian cyst which we already know you have. Your bleeding is moderate in nature and will most likely resolve on its own. If you would like to try to get back on a regular menstrual cycle, you may take the contraceptive pills prescribed, which will regulate and balance out your reproductive hormones. It is very important that you follow-up with a gynecology specialist to make sure that everything is getting back to normal. You may call the clinic number provided to get an appointment set up for follow- up. Please drink plenty of fluids and eat a healthful food. If you begin to feel severely short of breath or dizzy, please return to the emergency department. Discharge Date/Time: 01/20/21 16:12
[2021-01-20 16:04] VITALS: BP 146/93
--- NOTE | 2021-01-20 16:21 | Ultrasound Report ---
PROCEDURE: Pelvic w/Transvag+Doppler Comp INDICATIONS: pelvic pain, R TECHNIQUE: Real-time scanning was performed of the pelvic organs, with image documentation. Additional endovagi nal scanning was necessary due to incomplete visualization of the adnexal and endometrial structures by transabdominal scanning. COMPARISON: CT abdomen pelvis 01/12/2021. FINDINGS: No pathologic free abdominal or pelvic fluid. Uterus: Uterus is anteverted and measures approximately 12.3 x 4.7 x 6.9 cm. The endometrium measure s 0.6 cm in combined thickness. Ovaries: The right ovary measures 3.9 x 2.7 x 2.8 cm with a volume of 15.5 mL and the left ovary cara sures 2.6 x 2.2 x 2.4 cm with a volume of 7.2 mL. There is patent arterial and venous flow demonstrat ed in both ovaries. A small anechoic thin-walled right ovarian cyst is demonstrated measuring up to 2 .2 x 1.6 x 1.8 cm likely representing a follicular cyst. IMPRESSION: 1. No acute sonographic abnormality identified in the pelvis. Typically, no evidence of ovarian torsi on at the time of the exam. Reviewed by: Rupert Damian MD on 01/20/2021 3:19 PM [facility] Approved by: Rupert Damian MD on 01/20/2021 3:19 PM [facility] Station ID: [id number]
== END 2021-01-20 16:12 | disposition home or self-care (01) ==
LOC: ED 11:57
DX: N93.8 Other specified abnormal uterine and vaginal bleeding (principal); N83.201 Unspecified ovarian cyst, right side; I10 Essential (primary) hypertension; Z79.82 Long term (current) use of aspirin
CPT/HCPCS: 36415; 80048; 81001; 81003; 81025; 85025; 87086; 93975; 99284

== ENCOUNTER 2021-03-03 16:02 | Emergency (ER) | payer OTHER ==
--- OUTSIDE RECORDS SUMMARY | 2021-03-03 16:06 | EXTERNAL MEDICAL SUMMARY RPT | Continuity of Care Document ---
:1985 Demographics Phone Unavailable Preferred Language Unknown Marital Status Unknown Latter Day Affiliation Unknown Race Unknown Ethnic Group Unknown Author Organization [place] Address [address] [phone] Phone Social History date description facility [phone]
--- OUTSIDE RECORDS SUMMARY | 2021-03-03 16:23 | EXTERNAL MEDICAL SUMMARY RPT | Continuity of Care Document ---
:1985 Demographics Phone Unavailable Preferred Language Unknown Marital Status Unknown Gnosticism Affiliation Unknown Race Unknown Ethnic Group Unknown Author Organization [place] Address [address] [phone] Phone Social History date description facility [phone]
[2021-03-03 16:39] LABS: BASOPHILS # (AUTO) 0.1 10^3/uL (0.0-0.1); BASOPHILS % (AUTO) 0.8 %; EOSINOPHILS # (AUTO) 0.4 10^3/uL (0.0-0.7); EOSINOPHILS % (AUTO) 2.5 %; HCT - HEMATOCRIT 37.7 % (37.0-47.0); HGB - HEMOGLOBIN 11.5 g/dL (12.0-16.0); LYMPHOCYTES # (AUTO) 2.8 10^3/uL (1.5-3.5); LYMPHOCYTES % (AUTO) 16.8 %; MEAN CORPUSCULAR HEMOGLOBIN 25.7 pg (27.0-31.0); MEAN CORPUSCULAR HGB CONC 30.5 g/dL (32.0-36.0); MEAN CORPUSCULAR VOLUME 84.2 fL (81.0-99.0); MEAN PLATELET VOLUME 9.6 fL (7.9-10.8); MONOCYTES % (AUTO) 6.2 %; NEUTROPHILS # (AUTO) 11.7 10^3/uL (1.5-6.6); NEUTROPHILS % (AUTO) 69.8 %; PLT - PLATELET COUNT 398 10^3/uL (130-450); RED BLOOD COUNT 4.48 10^6/uL (4.20-5.40); RED CELL DISTRIBUTION WIDTH 14.6 % (12.0-15.0); WHITE BLOOD COUNT 16.7 x10^3/uL (4.8-10.8)
[2021-03-03 16:43] LABS: SLIDE REVIEW? Indicated
[2021-03-03 16:44] LABS: MUDS CUTOFF CONCENTRATIONS CUTOFF CONC BELOW:
[2021-03-03 16:51] LABS: BILIRUBIN,URINE NEGATIVE (NEGATIVE); GLUCOSE, URINE (UA) NEGATIVE (NEGATIVE); KETONES,URINE (UA) NEGATIVE (NEGATIVE); LEUKOCYTE ESTERASE, URINE NEGATIVE (NEGATIVE); NITRITE,URINE NEGATIVE (NEGATIVE); OCCULT BLOOD,URINE NEGATIVE (NEGATIVE); PH,URINE 5.5 PH (5.0-7.5); PROTEIN,URINE NEGATIVE (NEGATIVE); UROBILINOGEN,URINE 0.2 (NORMAL) E.U./dL (NORMAL)
[2021-03-03] MEDS ORDERED: LORazepam 1 MG TABLET PO STA (16:51)
--- NOTE | 2021-03-03 16:51 | ED Physician Documentation ---
History of Present Illness - Stated complaint Stated Complaint: BODY PAIN/ANXIETY - Chief complaint Chief Complaint: General - History obtained from History obtained from: Patient - Additonal information Additional information: 35-year-old woman with history of anxiety, depression, multiple sclerosis presents after going to an urgent care today because she is more anxious and depressed than normal after being fired today from her job. She denies thoughts of self-harm or homicidal ideation. No hallucinations. She declines offers for inpatient hospitalization for her symptoms. 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 CUTTING MACHINE OPERATOR: section, Tubal ligation - Present Medications Home Medications: Ambulatory Orders Medication Instructions Recorded Confirmed Aspirin [Adult Aspirin] 81 mg PO DAILY 09/08/18 01/20/21 amLODIPine [Norvasc] 5 mg PO ONCE 01/06/19 01/20/21 Gabapentin [Neurontin] 300 mg PO HS 01/12/21 01/20/21 Insulin Aspart [NovoLOG] 8 units SQ TID 01/12/21 01/20/21 Insulin Glargine [Lantus Solostar] 31 unit SQ HS 01/12/21 01/20/21 Lisinopril [Zestril] 20 mg PO DAILY 01/12/21 01/20/21 Levonorgestrel-Ethin Estradiol 1 each PO DAILY #28 01/20/21 [Vienva-28 Tablet] LORazepam [Ativan] 1 mg PO TID PRN #12 tablet 03/03/21 - Allergies Allergies/Adverse Reactions: Allergies Allergy/AdvReac Type Severity Reaction Status Date / Time No Known Drug Allergies Allergy Verified 01/20/21 12:03 - Social History Does the pt smoke?: No Smoking Status: Never smoker Does the pt drink ETOH?: No Does the pt have substance abuse?: No - Immunizations Immunizations are current?: Yes - POLST Patient has POLST: No PD ED PE NORMAL - Vitals Vital signs reviewed: Yes - General General: Alert and oriented X 3, Other (She is tearful but cooperative alert and oriented. No SI or HI.) - Neuro Neuro: Alert and oriented X 3, Normal speech - Psych Psych: Normal mood, Normal affect Results - Vitals Vitals: Vital Signs - 24 hr 03/03/21 16:06 Temperature 36.6 C Heart Rate 113 H Respiratory 16 Rate Blood Pressure 140/78 H O2 Saturation 98 Oxygen O2 Source Room air - Labs Labs: Laboratory Tests 03/03/21 16:30 WBC 16.7 H RBC 4.48 Hgb 11.5 L Hct 37.7 MCV 84.2 MCH 25.7 L MCHC 30.5 L RDW 14.6 Plt Count 398 MPV 9.6 Manual Slide Review Indicated PD MEDICAL DECISION MAKING - ED course ED course: 35-year-old woman with an acute grief reaction on top of chronic anxiety depression presents after going to an urgent care but there is no self-harm or homicidal ideation and she declines offers for consideration for hospitalization. She like something for pain or anxiety, discussed that it certainly safe to do 1 or the other and she opted for anxiety medicine in the short-term pending follow-up counseling appointments. Departure - Departure Disposition: 01 Home, Self Care Clinical Impression: Anxiety, Grief reaction Condition: Good Record reviewed to determine appropriate education?: Yes Instructions: ED Stress React Prescriptions: LORazepam [Ativan] 1 mg PO TID PRN #12 tablet PRN Reason: Anxiety Comments: Do not drink or drive while taking prescription anxiety medication. Return if worse or if you develop thoughts of self-harm. Follow-up as scheduled for counseling and with your primary care provider.
[2021-03-03 16:53] LABS: CLARITY,URINE CLEAR (CLEAR); HCG UR QUAL NEGATIVE
[2021-03-03 16:57] LABS: BUN - BLOOD UREA NITROGEN 14 mg/dL (6-20); CALCIUM 9.2 mg/dL (8.5-10.3); CARBON DIOXIDE - CO2 24 mmol/L (21-32); CHLORIDE 98 mmol/L (101-111); CREATININE 0.5 mg/dL (0.4-1.0); GFR - MDRD 140 (>89); GLUCOSE 233 mg/dL (70-100); POTASSIUM 3.9 mmol/L (3.5-5.0); SODIUM 133 mmol/L (135-145)
[2021-03-03 16:58] LABS: ACETAMINOPHEN < 10 ug/mL (10-30); ALBUMIN 4.1 g/dL (3.2-5.5); ALBUMIN/GLOBULIN RATIO 1.2 (1.0-2.2); ALKALINE PHOSPHATASE 88 IU/L (42-121); ALT ALANINE AMINOTRANSFERASE 17 IU/L (10-60); AST ASPARTATE AMINOTRANSFERASE 14 IU/L (10-42); BILIRUBIN,TOTAL 0.5 mg/dL (0.2-1.0); ETOH - ETHANOL < 5.0 mg/dL; LIPASE 22 U/L (22-51); SALICYLATE < 6.0 mg/dL; TOTAL PROTEIN 7.6 g/dL (6.7-8.2)
[2021-03-03 17:01] LABS: PLATELET ESTIMATE, MANUAL NORMAL (130-450,000) (NORMAL); PLATELET MORPHOLOGY NORMAL APPEARANCE (NORMAL); RBC MORPHOLOGY (MULTIPLE) NORMAL APPEARANCE (NORMAL); WBC MORPHOLOGY (MULTIPLE) NORMAL APPEARANCE (NORMAL)
[2021-03-03 17:07] VITALS: BP 114/62
[2021-03-03 17:12] LABS: AMPHETAMINE SCREEN,URINE NEGATIVE (NEGATIVE); BARBITURATE SCREEN,UR NEGATIVE (NEGATIVE); BENZODIAZEPINES SCREEN, URINE NEGATIVE (NEGATIVE); COCAINE SCREEN URINE NEGATIVE (NEGATIVE); METHADONE SCREEN, URINE NEGATIVE (NEGATIVE); METHAMPHETAMINES SCREEN, URINE NEGATIVE (NEGATIVE); OPIATE SCREEN, URINE NEGATIVE (NEGATIVE); OXYCODONE SCREEN, URINE NEGATIVE (NEGATIVE); PROPOXYPHENE SCREEN, URINE NEGATIVE (NEGATIVE); THC CANNABINOID SCREEN, URINE POSITIVE (NEGATIVE); TRICYCLIC ANTIDEPRESSANT,URINE NEGATIVE (NEGATIVE)
[2021-03-03] MEDS ORDERED: LORazepam 2 MG/ML VIAL IVP STA (17:17)
== END 2021-03-03 17:19 | disposition home or self-care (01) ==
LOC: ED 16:02
DX: F43.23 Adjustment disorder with mixed anxiety and depressed mood (principal); G35 Multiple sclerosis; I10 Essential (primary) hypertension; Z79.82 Long term (current) use of aspirin
CPT/HCPCS: 36415; 80053; 80306; 80307; 80320; 80329; 81003; 81025; 83690; 84443; 85025; 99283; J8499; 81001; 87086

== ENCOUNTER 2021-07-30 08:00 | Outpatient (CLI) | payer MEDICAID ==
[2021-07-30 18:04] LABS: CALCIUM 8.5 mg/dL (8.5-10.3); CREATININE 0.5 mg/dL (0.4-1.0); POTASSIUM 4.1 mmol/L (3.5-5.0)
[2021-07-30 18:12] LABS: CREATININE,URINE 183.1 mg/dL; MICROALBUM/CREATININE RATIO,UR 56.3 ug/mg (<30.0); MICROALBUMIN,URINE 10.3 mg/dL (0-300.0)
[2021-07-30 20:22] LABS: ESTIMATED AVERAGE GLUCOSE 252 mg/dL (70-100); HEMOGLOBIN A1c% 10.4 % (4.27-6.07)
== END 2021-07-30 23:59 | disposition home or self-care (01) ==
LOC: LAB.WCP 08:00
PROVIDERS: ATTEND Family Medicine
DX: E10.9 Type 1 diabetes mellitus without complications (principal); Z79.4 Long term (current) use of insulin
CPT/HCPCS: 36415; 80048; 82043; 82570; 83036

== ENCOUNTER 2022-02-16 12:20 | Emergency (ER) | payer MEDICAID ==
[2022-02-16] MEDS ORDERED: HYDROmorphone 1 MG/ML CARPUJECT IVP STA (12:38)
[2022-02-16] MEDS ORDERED: ONDANSETRON 4 MG/2 ML VIAL IVP STA (12:38)
--- NOTE | 2022-02-16 12:39 | ED Physician Documentation ---
PD HPI ABD PAIN - Stated complaint Stated Complaint: ABD PX - Chief complaint Chief Complaint: Abd Pain - History obtained from History obtained from: Patient - Additional information Additional information: 36-year-old woman with history of C-sections, no other abdominal surgeries. She also has a history of MS, hypertension, and seizure disorder. She developed gradual onset right-sided pelvic pain last night that radiates to the back and leg. It is worse with walking. Last menses was about 3 days ago. She says she has a history of ovarian cysts. No associated fevers, chills, nausea, vomiting, changes in bowel movements, vaginal bleeding or discharge. Review of Systems Ten Systems: 10 systems reviewed and negative Constitutional: reports: Reviewed and negative Eyes: reports: Reviewed and negative Ears: reports: Reviewed and negative Nose: reports: Reviewed and negative Throat: reports: Reviewed and negative PD PAST MEDICAL HISTORY - Past Medical History Cardiovascular: Hypertension Respiratory: None Neuro: CVA, TIA Endocrine/Autoimmune: HyPOthyroidism GI: GERD POWER REGULATOR: None : None HEENT: None Psych: Anxiety, Panic attacks, Post traumatic stress disorder Musculoskeletal: None Derm: Eczema - Past Surgical History Past Surgical History: Yes /POWER REGULATOR: section, Tubal ligation - Present Medications Home Medications: Ambulatory Orders Medication Instructions Recorded Confirmed Aspirin [Adult Aspirin] 81 mg PO DAILY 09/08/18 02/16/22 Gabapentin [Neurontin] 300 mg PO HS 01/12/21 02/16/22 Insulin Aspart [NovoLOG] 13 units SQ TID 01/12/21 02/16/22 Insulin Glargine [Lantus Solostar] 33 unit SQ HS 01/12/21 02/16/22 Lisinopril [Zestril] 20 mg PO DAILY 01/12/21 02/16/22 Duloxetine HCl [Cymbalta] 120 mg PO DAILY 02/16/22 02/16/22 HYDROcod/ACETAM 5/325 [[place] 5/325] 1 - 2 tab PO Q6H PRN #15 tablet 02/16/22 Mirtazapine 45 mg PO HS 02/16/22 02/16/22 Teriflunomide [Aubagio] 14 mg PO DAILY 02/16/22 02/16/22 carBAMazepine [TEGretol] 200 mg PO HS 02/16/22 02/16/22 carBAMazepine [TEGretol] 400 mg PO DAILY 02/16/22 02/16/22 metFORMIN [Glucophage] 500 mg PO BID 02/16/22 02/16/22 - Allergies Allergies/Adverse Reactions: Allergies Allergy/AdvReac Type Severity Reaction Status Date / Time No Known Drug Allergies Allergy Verified 02/16/22 12:27 - Social History Does the pt smoke?: No Smoking Status: Never smoker Does the pt drink ETOH?: No Does the pt have substance abuse?: No - Immunizations Immunizations are current?: Yes - POLST Patient has POLST: No PD ED PE NORMAL - Vitals Vital signs reviewed: Yes - General General: Alert and oriented X 3, No acute distress - HEENT HEENT: PERRL, EOMI - Neck Neck: Supple, no meningeal sign, No bony TTP - Cardiac Cardiac: RRR, No murmur - Respiratory Respiratory: No respiratory distress, Clear bilaterally - Abdomen Abdomen: Normal bowel sounds, Soft, Other (She is minimally tender in the right abdomen which seems equal to the right upper quadrant in the right lower quadrant.) - Back Back: No CVA TTP, No spinal TTP - Derm Derm: Normal color, Warm and dry - Extremities Extremities: No edema, No calf tenderness / cord - Neuro Neuro: Alert and oriented X 3, Normal speech Results - Vitals Vitals: Vital Signs - 24 hr 02/16/22 02/16/22 02/16/22 12:25 12:57 14:27 Temperature 37.0 C 36.7 C Heart Rate 93 98 93 Respiratory 16 16 16 Rate Blood Pressure 145/90 H 133/91 H 127/90 H O2 Saturation 98 97 97 Oxygen O2 Source Room air - Labs Labs: Laboratory Tests 02/16/22 02/16/22 02/16/22 12:40 12:40 12:40 WBC 11.4 H RBC 4.76 Hgb 12.8 Hct 39.7 MCV 83.4 MCH 26.9 L MCHC 32.2 RDW 14.6 Plt Count 322 MPV 10.7 Neut # (Auto) 8.3 H Lymph # (Auto) 1.3 L [place] # (Auto) 0.7 Eos # (Auto) 0.7 Baso # (Auto) 0.1 Absolute Nucleated RBC 0.00 Nucleated RBC % 0.0 Sodium 134 L Potassium 4.0 Chloride 100 L Carbon Dioxide 21 Anion Gap 13.0 BUN 11 Creatinine 0.6 Estimated GFR (MDRD) 112 Glucose 304 H Calcium 8.7 Total Bilirubin 0.3 AST 13 ALT 15 Alkaline Phosphatase 99 Total Protein 7.4 Albumin 3.7 Globulin 3.7 Albumin/Globulin Ratio 1.0 Lipase 27 Urine Color Urine Clarity Urine pH Ur Specific [place] Urine Protein Urine Glucose (UA) Urine Ketones Urine Occult Blood Urine Nitrite Urine Bilirubin Urine Urobilinogen Ur Leukocyte Esterase Ur Microscopic Review Urine Culture Comments Urine HCG, Qual Last Dose Date UNK Last Dose Time UNK Carbamazepine 5.8 02/16/22 12:40 WBC RBC Hgb Hct MCV MCH MCHC RDW Plt Count MPV Neut # (Auto) Lymph # (Auto) [place] # (Auto) Eos # (Auto) Baso # (Auto) Absolute Nucleated RBC Nucleated RBC % Sodium Potassium Chloride Carbon Dioxide Anion Gap BUN Creatinine Estimated GFR (MDRD) Glucose Calcium Total Bilirubin AST ALT Alkaline Phosphatase Total Protein Albumin Globulin Albumin/Globulin Ratio Lipase Urine Color YELLOW Urine Clarity CLEAR Urine pH 6.0 Ur Specific [place] 1.020 Urine Protein NEGATIVE Urine Glucose (UA) >=1000 H Urine Ketones NEGATIVE Urine Occult Blood NEGATIVE Urine Nitrite NEGATIVE Urine Bilirubin NEGATIVE Urine Urobilinogen 0.2 (NORMAL) Ur Leukocyte Esterase NEGATIVE Ur Microscopic Review NOT INDICATED Urine Culture Comments NOT INDICATED Urine HCG, Qual NEGATIVE Last Dose Date Last Dose Time Carbamazepine PD MEDICAL DECISION MAKING - ED course ED course: 36-year-old woman with right-sided abdominal pain. Ultrasound of the gallbladder and pelvis were done and reported to me by the cathodic protection technician is being only positive for small right ovarian cyst. The size was 2.4 cm. Given the elevated white count and the atypical timing for ovarian cyst pain i.e. being only a few days after her menses, this was followed with a CT to rule out appendicitis. This was positive only for mild fat stranding of the base of the mesentery and bilateral ovarian cysts. Pain was well controlled with a single dose of Dilaudid throughout her stay here. Departure - Departure Disposition: 01 Home, Self Care Clinical Impression: Abdominal pain, Hyperglycemia due to diabetes mellitus, Ovarian cyst Condition: Good Record reviewed to determine appropriate education?: Yes Instructions: ED Cyst Ovarian Follow-Up: [facility] [Provider Group] Prescriptions: HYDROcod/ACETAM 5/325 [[place] 5/325] 1 - 2 tab PO Q6H PRN #15 tablet PRN Reason: Pain Comments: You are seen today for right-sided abdominal pain. No evidence of gallbladder stone or other gallbladder issue. You did have small ovarian cysts. We did double check to make sure he did not have appendicitis with a CAT scan and this was negative. Your labs were notable for a blood sugar that is modestly elevated to 304. Reasonable to follow-up with gynecology in a week or 2 for recheck and return if worse. Number for gynecology is on this form, call today or tomorrow for an appointment. I sent your prescription electronically to [facility] in [place]. I am prescribing a short course of narcotic pain medication for you. These are potentially dangerous and addictive medications that should be used carefully. These medications may constipate you. Take an olee-khn-nhpgscd stool softener (docusate) twice daily with plenty of water while taking these medications. If you go 24 hours without a bowel movement, take uget-hjo-njgtzcw miralax, per package instructions. Do not drink or drive while taking these medications. If you received narcotic or sedating medications while in the emergency department, do not drive for 24 hours. Store this medication in a safe, secure place and out of reach of children. It is a violation of federal law to give or sell this medication to another person or to use in a manner other than prescribed. The ED will not refill narcotic prescriptions, including prescriptions lost or stolen. To dispose of unwanted medications: 1. [facility] at [address] in [place] has a medication drop box. They accept prescription medications (in pill form) Wednesday through Wednesday 9:00 a.m. to 5:00 p.m. 2. The [facility] accepts prescription medications (in pill form only) for disposal year round. Call for more information. 3. Contact the [facility] for the next [facility] sponsored prescription drug collection event. , [phone], or [phone]; Note that many narcotic pain relievers also contain Tylenol/acetaminophen. Please ensure that your total dose of acetaminophen from all sources does not exceed 3 g (3000 mg) per day.
[2022-02-16 12:56] LABS: BILIRUBIN,URINE NEGATIVE (NEGATIVE); GLUCOSE, URINE (UA) >=1000 mg/dL (NEGATIVE); KETONES,URINE (UA) NEGATIVE (NEGATIVE); LEUKOCYTE ESTERASE, URINE NEGATIVE (NEGATIVE); NITRITE,URINE NEGATIVE (NEGATIVE); OCCULT BLOOD,URINE NEGATIVE (NEGATIVE); PROTEIN,URINE NEGATIVE (NEGATIVE); UROBILINOGEN,URINE 0.2 (NORMAL) E.U./dL (NORMAL)
[2022-02-16 12:57] LABS: BASOPHILS # (AUTO) 0.1 10^3/uL (0.0-0.1); BASOPHILS % (AUTO) 0.8 %; EOSINOPHILS # (AUTO) 0.7 10^3/uL (0.0-0.7); EOSINOPHILS % (AUTO) 6.1 %; HCT - HEMATOCRIT 39.7 % (37.0-47.0); HGB - HEMOGLOBIN 12.8 g/dL (12.0-16.0); LYMPHOCYTES # (AUTO) 1.3 10^3/uL (1.5-3.5); LYMPHOCYTES % (AUTO) 11.6 %; MEAN CORPUSCULAR HEMOGLOBIN 26.9 pg (27.0-31.0); MEAN CORPUSCULAR HGB CONC 32.2 g/dL (32.0-36.0); MEAN CORPUSCULAR VOLUME 83.4 fL (81.0-99.0); MEAN PLATELET VOLUME 10.7 fL (7.9-10.8); MONOCYTES # (AUTO) 0.7 10^3/uL (0.0-1.0); MONOCYTES % (AUTO) 6.2 %; NEUTROPHILS # (AUTO) 8.3 10^3/uL (1.5-6.6); NEUTROPHILS % (AUTO) 72.6 %; PLT - PLATELET COUNT 322 10^3/uL (130-450); RED BLOOD COUNT 4.76 10^6/uL (4.20-5.40); RED CELL DISTRIBUTION WIDTH 14.6 % (12.0-15.0); WHITE BLOOD COUNT 11.4 x10^3/uL (4.8-10.8)
[2022-02-16 13:01] LABS: CLARITY,URINE CLEAR (CLEAR); HCG UR QUAL NEGATIVE
[2022-02-16 13:08] LABS: ALBUMIN 3.7 g/dL (3.2-5.5); BILIRUBIN,TOTAL 0.3 mg/dL (0.2-1.0); CALCIUM 8.7 mg/dL (8.5-10.3); CREATININE 0.6 mg/dL (0.4-1.0); TOTAL PROTEIN 7.4 g/dL (6.7-8.2)
[2022-02-16 13:24] LABS: CARBAMAZEPINE (TEGRETOL) 5.8 ug/mL
[2022-02-16] MEDS ORDERED: IOVERSOL 320 100 ML VIAL IVP ONE ×2 (14:00→14:56)
--- NOTE | 2022-02-16 14:56 | CT Report ---
PROCEDURE: Abdomen/Pelvis W INDICATIONS: IV only, RLQ pain CONTRAST: IV CONTRAST: Optiray 320 ml: 100 PO CONTRAST: *NO PO CONTRAST TECHNIQUE: After the administration of IV contrast, 5 mm thick sections acquired from the diaphragms to the symp hysis. 5 mm thick coronal and sagittal reformats were acquired. For radiation dose reduction, the f ollowing was used: automated exposure control, adjustment of mA and/or kV according to patient size. COMPARISON: 01/12/2021 FINDINGS: Image quality: Excellent. ABDOMEN: Lung bases: Lung bases are clear. Heart size is normal. Solid organs: The liver is at the upper limits of normal in size measuring 19.8 cm in length and mil dly steatotic. No liver mass. Gallbladder is partially decompressed and appears normal. Spleen is wit hin normal limits. Normal pancreas, adrenal glands, and kidneys. No hydronephrosis or nephrolithiasis . Peritoneum and bowel: There is normal appendix in the right lower quadrant. No periappendiceal infla mmation. There is a small area of fat stranding in the central small bowel mesentery. There are tiny lymph nodes present but no bulky adenopathy. No evidence of small bowel obstruction or colitis. No f ree fluid or air. Nodes and vessels: Several tiny lymph nodes are present. No retroperitoneal or mesenteric adenopathy by size criteria. Aorta and inferior vena cava are normal in size. Miscellaneous: No ventral hernias. PELVIS: Genitourinary: Normal urinary bladder wall thickness. The uterus is anteverted. There is a small hype rdense nodule along the anterior posterior wall of the uterus. There are dominant follicles on each o vary. No significant adnexal mass seen. No free pelvic fluid. Miscellaneous: No inguinal hernias or adenopathy. Bones: No suspicious bony lesions. Bilateral L5 pars defects and grade 1 anterolisthesis L5 on S1. N o vertebral body compression fractures. IMPRESSION: 1. No evidence of appendicitis. 2. Minor fat stranding at the base of the small bowel mesentery, nonspecific. 3. Bilateral ovarian cysts. Reviewed by: Bren Garcia MD on 02/16/2022 2:54 PM PDT Approved by: Bren Garcia MD on 02/16/2022 2:54 PM PDT Station ID: [id number]
[2022-02-16 15:17] VITALS: BP 126/78
--- NOTE | 2022-02-16 15:55 | Ultrasound Report ---
PROCEDURE: Pelvic w/Doppler Complete INDICATIONS: RT ABD PAIN TECHNIQUE: Real-time scanning was performed of the pelvic organs, with image documentation. Additional endovagi nal scanning was necessary due to incomplete visualization of the adnexal and endometrial structures by transabdominal scanning. COMPARISON: None. FINDINGS: Limited scanning through the kidneys shows no hydronephrosis. No pathologic free abdominal or pelvic fluid. Uterus: Uterine body measures 4.6 x 6.1 x 10.0 cm. There is a midline intramural fibroid in the poste rior uterine wall measuring 1.5 x 1.8 x 2.0 cm. Normal thickness endometrium measuring 4 mm in double layer maximum thickness. Both ovaries normal in size and appearance Ovaries: Torsion. There is a simple cyst in the right ova ry measuring 2.4 cm. Miscellaneous: Appendix not visualized. IMPRESSION: Mildly enlarged uterus containing an intramural uterine fibroid measuring 2 cm. Simple cyst in the right ovary measuring 2.4 cm. No findings of torsion. Reviewed by: Erik Kincaid MD on 02/16/2022 3:54 PM PDT Approved by: Erik Kincaid MD on 02/16/2022 3:54 PM PDT Station ID: [id number]
--- NOTE | 2022-02-16 15:56 | Ultrasound Report ---
PROCEDURE: Abdomen Limited INDICATIONS: R abd pain TECHNIQUE: Real-time focused scanning was performed of the abdomen, with image documentation. COMPARISON: CT abdomen 09/08/2018 FINDINGS: Increased hepatic parenchymal echogenicity consistent with diffuse hepatic steatosis. No f ocal hepatic mass. Otherwise normal appearance of the liver. No intrahepatic or extrahepatic biliary ductal dilatation. Normally distended and otherwise unremarkable gallbladder. The pancreas and right kidney are normal. IMPRESSION: Hepatic steatosis. No acute finding. Reviewed by: Erik Kincaid MD on 02/16/2022 3:54 PM PDT Approved by: Erik Kincaid MD on 02/16/2022 3:54 PM PDT Station ID: [id number]
== END 2022-02-16 15:17 | disposition home or self-care (01) ==
LOC: ED 12:20
DX: N83.201 Unspecified ovarian cyst, right side (principal); E11.65 Type 2 diabetes mellitus with hyperglycemia; Z79.4 Long term (current) use of insulin; I10 Essential (primary) hypertension
CPT/HCPCS: 36415; 74177; 76705; 76856; 80053; 80156; 81003; 81025; 83690; 85025; 93975; 96374; 96375; 99284; J1170; Q9967; 81001; 87086

== ENCOUNTER 2022-05-15 20:57 | Emergency (ER) | payer MEDICAID ==
--- NOTE | 2022-05-15 21:27 | XRAY Report ---
PROCEDURE: Ankle 3 View RT INDICATIONS: Trauma TECHNIQUE: 3 views of the ankle were acquired. COMPARISON: None FINDINGS: Bones: No fractures or dislocations. Ankle mortise is normally aligned. No suspicious bony lesions . The talar dome demonstrates an unremarkable appearance. An accessory ossicle is seen, an os trig onum. Soft tissues: Mild soft tissue swelling is seen. IMPRESSION: Soft tissue swelling is seen. No findings of fracture are seen. However, if there is point tenderness (or other clinical concern fo r a fracture not seen on these plain films) then please consider a short-term follow-up plain film se luba or CT for further evaluation. Reviewed by: Jeancarlos Padilla MD on 05/15/2022 8:25 PM CASTRO Approved by: Jeancarlos Padilla MD on 05/15/2022 8:25 PM CASTRO Station ID: [id number]
--- NOTE | 2022-05-15 21:50 | ED Physician Documentation ---
History of Present Illness - Stated complaint Stated Complaint: RIGHT ANKLE PX - Chief complaint Chief Complaint: Trauma Ext - Additonal information Additional information: This is a very pleasant 36-year-old female who has a history of multiple sclerosis and thus is some mobility issues related to that who comes to the emergency department with 3 weeks of right ankle pain. She had been attending physical therapy for pain in her knee when she had a fall and and inversion injury 3 weeks ago. Her partner has been trying to massage the foot, apply Beng[place] or ice but despite this the pain has not resolved and she has difficulty bearing weight. Typically using a walker. Review of Systems Constitutional: denies: Fever, Chills Throat: reports: Reviewed and negative Cardiac: reports: Reviewed and negative Musculoskeletal: reports: Extremity pain PD PAST MEDICAL HISTORY - Past Medical History Cardiovascular: Hypertension Respiratory: None Neuro: CVA, TIA Endocrine/Autoimmune: Type 2 diabetes, HyPOthyroidism GI: GERD HOT DIP PLATING SUPERVISOR: None : None HEENT: None Psych: Anxiety, Panic attacks, Post traumatic stress disorder Musculoskeletal: None Derm: Eczema - Past Surgical History Past Surgical History: Yes /HOT DIP PLATING SUPERVISOR: section, Tubal ligation - Present Medications Home Medications: Ambulatory Orders Medication Instructions Recorded Confirmed Aspirin [Adult Aspirin] 81 mg PO DAILY 09/08/18 04/30/22 Gabapentin [Neurontin] 300 mg PO TID 01/12/21 04/30/22 Insulin Aspart [NovoLOG] 44 units SQ QPM 01/12/21 04/30/22 Insulin Glargine [Lantus Solostar] 33 unit SQ HS 01/12/21 04/30/22 Lisinopril [Zestril] 20 mg PO DAILY 01/12/21 04/30/22 Duloxetine HCl [Cymbalta] 60 mg PO DAILY 02/16/22 04/30/22 Teriflunomide [Aubagio] 14 mg PO DAILY 02/16/22 04/30/22 Sulfamethox/Trimeth 800/160 1 each PO BID #14 tablet 04/30/22 [Bactrim Ds 800/160] - Allergies Allergies/Adverse Reactions: Allergies Allergy/AdvReac Type Severity Reaction Status Date / Time No Known Drug Allergies Allergy Verified 05/15/22 21:03 - Social History Does the pt smoke?: No Smoking Status: Never smoker Does the pt drink ETOH?: No Does the pt have substance abuse?: No - Immunizations Immunizations are current?: Yes - POLST Patient has POLST: No PD ED PE EXPANDED - Extremities Extremities: Right foot (Mild swelling just distal to the right lateral malleolus. Full range of motion of the ankle in all planes though painful. She can bear weight though she is unstable using a cane) Results - Vitals Vitals: Vital Signs - 24 hr 05/15/22 21:03 Temperature 36.5 C Heart Rate 90 Respiratory 16 Rate Blood Pressure 140/82 H O2 Saturation 100 Oxygen O2 Source Room air - Rads (name of study) right foot Radiology: Final report received (Soft tissue swelling is seen. No findings of acute fracture) PD MEDICAL DECISION MAKING - ED course Complexity details: reviewed results, re-evaluated patient, considered differential, d/w patient ED course: 36-year-old female presents the emergency department for evaluation of 3 weeks acute right lateral ankle pain after an inversion injury and fall 3 weeks ago. She does have mobility issues related to MS. X-ray is negative for acute fracture however I suspect she has a moderate to severe sprain. In order to assist with mobility and provide safety with ambulation she is administered a walker. She was also given an Jesus wrap. Patient has taken very little [id number]-[id number] for analgesia and I will make the recommendation for Tylenol and ibuprofen. Given the duration of the symptoms and a history of mobility issues I am encouraging her to follow-up to obtain referral for physical th dominic. Departure - Departure Disposition: 01 Home, Self Care Clinical Impression: Moderate right ankle sprain Qualifiers: Encounter type: initial encounter Qualified Code(s): S93.401A - Sprain of unspecified ligament of right ankle, initial encounter Condition: Stable Record reviewed to determine appropriate education?: Yes Instructions: ED Sprain Ankle W X Ray Comments: Claire the x-ray of your foot and ankle do not show any broken bones. However you have a severe sprain of the ankle. I would like you to wear the Jesus wrap when out of bed. This will help compress the joint and reduce any laxity in the ligaments and tendons as they heal. Please use the walker to aid in your ambulation until the sprain gets better. But because of your history of MS and mobility issues you would benefit from referral to physical therapy. In general you can take 500 mg of Tylenol with food 2-3 times a day. You can also alternate with ibuprofen 600 mg with food 2-3 times a day.
[2022-05-15 21:55] VITALS: BP 122/76
== END 2022-05-15 21:54 | disposition home or self-care (01) ==
LOC: ED 20:57
DX: S93.401A Sprain of unspecified ligament of right ankle, initial encounter (principal); X50.1XXA Overexertion from prolonged static or awkward postures, initial encounter; E11.9 Type 2 diabetes mellitus without complications; Z79.4 Long term (current) use of insulin
CPT/HCPCS: 99281; 99283

== ENCOUNTER 2023-01-02 14:33 | Emergency (ER) | payer MEDICAID ==
--- NOTE | 2023-01-02 16:39 | ED Physician Documentation ---
History of Present Illness - Stated complaint Stated Complaint: ITCHING/PAIN - Chief complaint Chief Complaint: Wound - History obtained from History obtained from: Patient - History of Present Illness Pain level max: 5 Pain level now: 4 - Additonal information Additional information: 37-year-old female presents to the emergency department complaining of vaginal burning and itching. She has not noticed any discharge. She states that this started several days ago. She states she tried eelm-thb-qhizcsc medication but it did not relieve her symptoms. Denies any possibility of . She does have MS. 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 : None HEENT: None Psych: Anxiety, Panic attacks, Post traumatic stress disorder Musculoskeletal: None Derm: Eczema - Past Surgical History Past Surgical History: Yes /CENTRIFUGAL CASTING MACHINE TENDER: section, Tubal ligation - Present Medications Home Medications: Ambulatory Orders Medication Instructions Recorded Confirmed Aspirin [Adult Aspirin] 81 mg PO DAILY 09/08/18 08/07/22 Gabapentin [Neurontin] 300 mg PO TID 01/12/21 08/07/22 Insulin Aspart [NovoLOG] 44 units SQ QPM 01/12/21 08/07/22 Insulin Glargine [Lantus Solostar] 33 unit SQ HS 01/12/21 08/07/22 Lisinopril [Zestril] 20 mg PO DAILY 01/12/21 08/07/22 Duloxetine HCl [Cymbalta] 60 mg PO DAILY 02/16/22 08/07/22 Teriflunomide [Aubagio] 14 mg PO DAILY 02/16/22 08/07/22 Sulfamethox/Trimeth 800/160 1 each PO BID #14 tablet 04/30/22 08/07/22 [Bactrim Ds 800/160] HYDROcod/ACETAM 5/325 [[place] 5/325] 1 - 2 ea PO Q6H PRN #14 tablet 01/02/23 metroNIDAZOLE [Flagyl] 500 mg PO BID #14 tablet 01/02/23 - Allergies Allergies/Adverse Reactions: Allergies Allergy/AdvReac Type Severity Reaction Status Date / Time No Known Drug Allergies Allergy Verified 01/02/23 14:55 - Social History Does the pt smoke?: No Smoking Status: Never smoker Does the pt drink ETOH?: No Does the pt have substance abuse?: No - Immunizations Immunizations are current?: Yes - POLST Patient has POLST: No PD ED PE NORMAL - Vitals Vital signs reviewed: Yes - General General: Alert and oriented X 3, No acute distress - HEENT HEENT: Moist mucous membranes - Neck Neck: Supple, no meningeal sign - Cardiac Cardiac: RRR, Strong equal pulses - Respiratory Respiratory: No respiratory distress, Clear bilaterally - Abdomen Abdomen: Soft, Non tender, Non distended - Female Female : Kit Assembler present (Sigrid GÓMEZ), Other (Diffuse vaginal irritation, white thick discharge present.) - Back Back: No CVA TTP, No spinal TTP - Derm Derm: Warm and dry - Neuro Neuro: Alert and oriented X 3 - Psych Psych: Normal mood, Normal affect Results - Vitals Vitals: Vital Signs - 24 hr 01/02/23 01/02/23 14:52 17:34 Temperature 36.8 C Heart Rate 100 90 Respiratory 20 18 Rate Blood Pressure 153/110 H 140/86 H O2 Saturation 98 99 Oxygen O2 Source Room air - Labs Labs: Microbiology 01/02/23 16:20 Wet Prep - Final Vaginal Laboratory Tests 01/02/23 01/02/23 16:00 16:20 C. glabrata (PCR) NEGATIVE C. krusei (PCR) NEGATIVE Lucy species DNA POSITIVE A Chlam trachomat DNA PCR NEGATIVE N.gonorrhoeae DNA (PCR) NEGATIVE T. vaginalis (PCR) NEGATIVE TNP Bact Vaginosis (PCR) NEGATIVE PD Medical Decision Making - ED course Complexity details: reviewed results, re-evaluated patient, considered differential, d/w patient ED course: Patient with what appears to be a candidal yeast infection and bacterial vaginitis on wet mount. Given a dose of Diflucan. Also will place on Flagyl. We will have her follow-up with her doctor for further care. No evidence of PID. We will place on oral pain medication as well. Patient counseled regarding signs and symptoms for which I believe and urgent re-evaluation would be necessary. Patient with good understanding of and agreement to plan and is comfortable going home at this time This document was made in part using voice recognition software. While efforts are made to proofread this document, sound alike and grammatical errors may occur. Departure - Departure Disposition: 01 Home, Self Care Clinical Impression: Bacterial vaginitis, Vaginal yeast infection Condition: Good Instructions: ED Vaginosis Bacterial, ED Vaginal Infec Fungal Lucy Follow-Up: Riaz Evangelista MD [Primary Care Provider] - As Needed Prescriptions: metroNIDAZOLE [Flagyl] 500 mg PO BID #14 tablet HYDROcod/ACETAM 5/325 [[place] 5/325] 1 - 2 ea PO Q6H PRN #14 tablet PRN Reason: Pain Comments: [facility] [place]. Please follow-up with your doctor for further care. Take all medications as prescribed. Return if you worsen. I am prescribing a short course of narcotic pain medication for you. These are potentially dangerous and addictive medications that should be used carefully. These medications may constipate you. Take an pdmq-fdt-zdukhpv stool softener (docusate) twice daily with plenty of water while taking these medications. If you go 24 hours without a bowel movement, take nbng-eym-yksdahg miralax, per package instructions. Do not drink or drive while taking these medications. If you received narcotic or sedating medications while in the emergency department, do not drive for 24 hours. Store this medication in a safe, secure place and out of reach of children. It is a violation of federal law to give or sell this medication to another person or to use in a manner other than prescribed. The ED will not refill narcotic prescriptions, including prescriptions lost or stolen. To dispose of unwanted medications: 1. [facility] [address] [facility] in [place] has a medication drop box. They accept prescription medications (in pill form) Wednesday through Wednesday 9:00 a.m. to 5:00 p.m. 2. [facility] [employer] accepts prescription medications (in pill form only) for disposal year round. Call for more information. 3. Contact the [facility] for the next [facility] sponsored prescription drug collection event. , [phone], or [phone]; Discharge Date/Time: 01/02/23 17:32
[2023-01-02] MEDS ORDERED: metroNIDAZOLE 250 MG TABLET PO STA (17:01)
[2023-01-02] MEDS ORDERED: FLUCONAZOLE 100 MG TABLET PO STA (17:01)
[2023-01-02] MEDS ORDERED: HYDROcod/ACETAM 5/325 MG TABLET PO STA (17:18)
[2023-01-02 17:35] VITALS: BP 140/86
[2023-01-02 18:10] LABS: BACTERIAL VAGINOSIS DNA NEGATIVE (NEGATIVE)
[2023-01-02 18:11] LABS: CANDIDA GLABRATA DNA NEGATIVE (NEGATIVE); CANDIDA GROUP DNA POSITIVE (NEGATIVE); CANDIDA KRUSEI DNA NEGATIVE (NEGATIVE); TRICHOMONAS VAGINALIS DNA NEGATIVE (NEGATIVE)
[2023-01-02 19:48] LABS: CHLAMYDIA TRACHOMATIS DNA NEGATIVE (NEGATIVE); NEISSERIA GONORRHOEAE DNA NEGATIVE (NEGATIVE)
== END 2023-01-02 17:32 | disposition home or self-care (01) ==
LOC: ED 14:33
DX: B37.31 Acute candidiasis of vulva and vagina (principal); N76.0 Acute vaginitis
CPT/HCPCS: 81514; 87210; 87491; 87591; 99283; A9270; 87661

== ENCOUNTER 2023-09-06 10:18 | Outpatient (CLI) | payer MEDICAID ==
--- NOTE | 2023-09-06 10:48 | SLEEP CARE CONSULTATION ---
Information from patient questionnaire entered by Renny Willoughby. I have reviewed and concur with the information entered by Renny Willoughby. This document represents the service I personally performed and the decisions made by me, Alvaro Frazier MD, [facility]. History of Present Illness Service Date and Time: 09/06/2023 1018 Reason for Visit: New patient Chief Complaint: reports: Excessive daytime sleepiness, Fatigue, Frequent awakenings at night Date of Onset: 2YRS Usual bedtime: 1030PM Time it takes to fall asleep: IMMEDIATLY Snores at night: No Observed to quit breathing while asleep: No Sleeps alone due to snoring: No Reasons for waking at night: reports: Pain, Bathroom Toss, Turn, or Twitch while sleeping: No Recalls having dreams: No Usually gets out of bed at: 545AM Feels refreshed in the morning: No Morning headache: No Sleepy or fatigued during the day: Yes Ever fallen asleep while driving: No Takes day naps: No Dreams during day naps: No Prior sleep studies: No Additional HPI information: I have the pleasure of seeing Ms. Lyons today regarding the possibility of her having obstructive sleep apnea. As you know, she is a 37-year-old lady who complains of frequent awakenings, persistent fatigue, and excessive daytime sleepiness for the past 2 years. The patient tells me that she normally goes to bed around 10:30 pm, and it takes her approximately just a few minutes to fall asleep. She has been told that she snores lightly at night. She has never been observed to stop breathing in her sleep. Her sleeps in the same bed. She can recall waking up on the average of 2 - 3 times during the night. Most of the time she wakes up because of having to use the bathroom and pain. She has never awakened because of her own snoring, choking, or having to gasp for air. There is not a lot of tossing and turning in her sleep. No somniloquy (sleep talking) or somnambulism (sleep walking). Generally, there is no recollection of dreams. In the morning she usually gets up out of the bed around 5:45 a.m. not feeling refreshed nor rested. She occasionally has a morning headache that goes away quickly after she wakes up. During the day she complains of feeling fatigued but not sleepy. Her score on [place] Sleepiness Scale is 3 out of 24. She never has fallen asleep while driving nor has had any accident due to sleepiness. She usually does not take naps during the day. Upon falling asleep during the day she denies having vivid dreams. She has never had sleep paralysis, experienced cataplexy or symptoms of restless leg syndrome. She reports having impaired concentration during the day. 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 Patient is and lives in [place]. Have you smoked in the past 12 months: No Alcohol use: No Caffeine use: Yes Caffeine amount and frequency: 1 CUP DAILY Family History Family history of sleep disordered breathing: No Allergies and Home Medications Known drug allergies: No Drug allergies reviewed: Yes Home medication list reviewed: Yes Allergy and home medication list: Allergies No Known Drug Allergies Allergy (Verified 09/03/23 10:59) Review of Systems Cardiovascular: reports: high blood pressure Respiratory: denies: shortness of breath, wheeze, sputum production, chronic cough, other Gastrointestinal: denies: heartburn, difficulty swallowing, nausea, vomitting, diarrhea, abdominal pain, other Urinary: denies: incontinence, frequency, urgency, impotence, other Ear/Nose/Throat: denies: nasal congestion, sinus problems, nose bleeds, dry mouth/throat, hoarseness, injury to nose, tonsillectomy, wisdom teeth removed, other Endocrine: reports: other (diabetes) Immunologic: denies: sneezing, rash, itching, allergies to food or environment, other Physical Exam Vital signs obtained and entered by: RENNY Cardenas MA Blood Pressure: 128/76 (LEFT ARM) Cuff size: long Heart Rate: 93 O2 Saturation: 98 Height: 5 ft 3 in Weight: 220 lb 12.8 oz Body Mass Index: 39.1 BMI Classification: Obese Neck circumference: 18 Mood/affect: Normal HEENT: No craniofacial malformation Nostrils: patent to airflow Turbinates: normal Septum: midline Mouth and throat: narrow oropharynx Soft palate: long Hard palate: normal Uvula: normal Uvula visualization: 25% Mallampati Class III Tongue: normal in size Tonsils: small Chin and jaw: normal size and position Neck: normal w/o lymphadenopathy or thyromegaly Heart: regular rate and rhythm Lungs: clear bilaterally Extremities: no edema or clubbing Neurologic: intact Impression and Plan IMPRESSION: 1. Obstructive Sleep Apnea-Hypopnea Syndrome, as evident by history of snoring, unrefreshed sleep, morning headache, cognitive impairment, and persistent fatigue. Narrow oropharynx and obesity are common predisposing factors for obstructive sleep apnea-hypopnea syndrome. Untreated obstructive sleep apnea can also cause hypertension. I recommend proceeding to polysomnography to confirm the diagnosis and to assess severity. If she has significant sleep disordered breathing, a manual CPAP titration study will also be performed to find the optimal treatment pressure. I informed the patient of what the sleep studies involve and after some discussion, she agreed to proceed. Plan: 1. Schedule polysomnography +/- manual CPAP titration study and return in 1 to 2 weeks after the study to discuss result and initiate therapy. 2. Avoid long distance driving or when feeling sleepy. 3. Avoid alcohol, sedative and muscle relaxant around bedtime. 4. Attempt to lose weight. Follow up with Sleep Care in: 1-2 months Follow up recommended for: Weight management Plan: in-lab PSG Visit Type: In Office Time Spent with Patient (minutes): 15 Provider Statement: I spent 100% of the Face to Face Visit with the patient with greater than 50% spent counseling the patient and coordination of care.
[2023-09-06 10:50] VITALS: BP 128/76; O2SAT 98
== END 2023-09-06 10:19 | disposition home or self-care (01) ==
LOC: SC 10:18
PROVIDERS: ATTEND Internal Medicine Pulmonary Disease
DX: R53.83 Other fatigue (principal); R06.83 Snoring; G47.8 Other sleep disorders; E66.9 Obesity, unspecified; E11.9 Type 2 diabetes mellitus without complications; I10 Essential (primary) hypertension; Z68.39 Body mass index [BMI] 39.0-39.9, adult
CPT/HCPCS: 99202; 99212

== ENCOUNTER 2023-10-02 20:23 | Outpatient (CLI) | payer MEDICAID | END 2023-10-02 20:24 | disposition home or self-care (01) | LOC: SC 20:23 | PROVIDERS: ATTEND Internal Medicine Pulmonary Disease | DX: G47.8 Other sleep disorders (principal); R06.83 Snoring; E66.9 Obesity, unspecified; R53.83 Other fatigue; E11.9 Type 2 diabetes mellitus without complications; I10 Essential (primary) hypertension | CPT/HCPCS: 95810 ==

== ENCOUNTER 2023-11-01 08:57 | Outpatient (CLI) | payer MEDICAID ==
--- NOTE | 2023-11-01 09:33 | SLEEP CARE CONSULTATION ---
Information from patient questionnaire entered by Kirsten Willoughby. I have reviewed and concur with the information entered by Kirsten Willoughby. This document represents the service I personally performed and the decisions made by me, Alvaro Frazier MD, [facility]. History of Present Illness Service Date and Time: 11/01/2023 0857 Initial [place] Sleepiness Scale score: 3 (09/06/23) Current [place] Sleepiness Scale score: 1 (11/01/23) Additional HPI information: Ms. Judson Lyons returned for follow up of the sleep study she had on 10-02-23. The polysomnography showed that the patient had normal sleep efficiency. The sleep architecture was normal as well. Respiratory monitoring showed no significant sleep disordered breathing (AHI = 1.0) or hypoxia (lakeshia oxygen saturation of 90%). The patient did not sleep supine during this study (supine AHI = 0.0; non-supine = 1.04). Snore was infrequent and light in intensity. There was no significant periodic leg movement of sleep. Cardiac r hythm was normal sinus rhythm without significant arrhythmia. No abnormal behavior (parasomnia) observed during the night. The patient was informed of these findings. I explained to her sleep study was normal. The patient is very happy to learn of the results. Sleep Study - Results Type of Sleep Study: Polysomnography (COMPLETED 10/02/23) Prior sleep studies: No Allergies and Home Medications Drug allergies reviewed: Yes Home medication list reviewed: Yes Allergy and home medication list: Allergies No Known Drug Allergies Allergy (Verified 09/06/23 10:20) Review of Systems Review of systems same as previous: Yes (NO CHANGE) Physical Exam Vital signs obtained and entered by: KIRSTEN Cardenas MA Blood Pressure: 126/75 (RIGHT ARM) Cuff size: regular Heart Rate: 92 O2 Saturation: 97 Height: 5 ft 3 in Weight: 221 lb Body Mass Index: 39.1 BMI Classification: Obese Impression and Plan IMPRESSION: 1. Fatigue, not related to sleep disorders. The patient does have multiple sclerosis and is seeing a neurologist. She confirms that she does not sleep on her back at home. PLAN: 1. Return to the sleep clinic on as needed basis. Follow up with Sleep Care in: as needed Visit Type: In Office Time Spent with Patient (minutes): 10 Provider Statement: I spent 100% of the Face to Face Visit with the patient with greater than 50% spent counseling the patient and coordination of care.
[2023-11-01 09:35] VITALS: BP 126/75; O2SAT 97
== END 2023-11-01 08:58 | disposition home or self-care (01) ==
LOC: SC 08:57
PROVIDERS: ATTEND Internal Medicine Pulmonary Disease
DX: R53.83 Other fatigue (principal); G35 Multiple sclerosis
CPT/HCPCS: 99212

== ENCOUNTER 2024-03-06 19:54 | Emergency (ER) | payer MEDICAID ==
[2024-03-06] MEDS: lidocaine 1% 20 ML MDV SUBQ ONE (20:18)
--- NOTE | 2024-03-06 21:07 | ED Physician Documentation ---
PD HPI SKIN - Stated complaint Stated Complaint: LT HAND LAC - Chief complaint Chief Complaint: Laceration - History obtained from History obtained from: Patient - Additional information Additional information: The patient comes to the emergency department chief complaint of laceration to distal left index finger after making contact with a can that she had opened. She states injury happened just prior to coming here. states they are concerned because the patient is on immune meds for multiple sclerosis and she also has diabetes and they are worried about her cut getting infected. The patient denies any other injuries. She states her put some rubbing alcohol on the wound at home. She had also run it under water, as well. No other complaints at this time. 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 : None HEENT: None Psych: Depression, Anxiety, Panic attacks, Post traumatic stress disorder, Obsessive compulsive disorder Musculoskeletal: None Derm: Eczema - Past Surgical History Past Surgical History: Yes /APPLICATION PACKAGING CONSULTANT: section, Tubal ligation - Present Medications Home Medications: Ambulatory Orders Medication Instructions Recorded Confirmed Aspirin [Adult Aspirin] 81 mg PO DAILY 09/08/18 03/06/24 Insulin Aspart [NovoLOG] 13 units SQ TIDWM 01/12/21 03/06/24 Lisinopril [Zestril] 20 mg PO DAILY 01/12/21 03/06/24 Gabapentin [Gralise] 300 mg PO HS 03/05/23 03/06/24 carBAMazepine [TEGretol] 200 mg PO BID 03/05/23 03/06/24 metFORMIN [Glucophage] 500 mg PO BIDWM 03/05/23 03/06/24 oxyBUTYnin chloride [Ditropan Xl] 5 mg PO BID PRN 03/05/23 03/06/24 Dextromethorphan HBr/Quinidine 1 cap PO DAILY 03/06/24 03/06/24 [Nuedexta 20-10 mg Capsule] Empagliflozin [Jardiance] 10 mg PO DAILY 03/06/24 03/06/24 Ofatumumab [Kesimpta Pen] 20 mg SUBQ DAILY 03/06/24 03/06/24 modafiniL [Modafinil] 100 mg PO DAILY 03/06/24 03/06/24 - Allergies Allergies/Adverse Reactions: Allergies Allergy/AdvReac Type Severity Reaction Status Date / Time No Known Drug Allergies Allergy Verified 09/06/23 10:20 - Social History Does the pt smoke?: No Smoking Status: Never smoker Does the pt drink ETOH?: No Does the pt have substance abuse?: No - Immunizations Immunizations are current?: Yes - POLST Patient has POLST: No PD ED PE NORMAL - Vitals Vital signs reviewed: Yes - General General: Alert and oriented X 3, No acute distress, Well developed/nourished - HEENT HEENT: Atraumatic, EOMI, Moist mucous membranes - Neck Neck: Supple, no meningeal sign - Cardiac Cardiac: Strong equal pulses - Respiratory Respiratory: No respiratory distress - Derm Derm: Normal color, Warm and dry, No rash, Other ( 8 mm nongaping laceration adjacent and perpendicular to left index nail. No involvement of nail or nailbed. Bleeding controlled. No foreign bodies. Tissues remain approximated even with exertion of pressure to pull the wound edges apart.) - Extremities Extremities: No deformity - Neuro Neuro: Other (Grossly intact) - Psych Psych: Normal mood, Normal affect Results - Vitals Vitals: Vital Signs - 24 hr 03/06/24 19:55 Temperature 36.5 C Heart Rate 92 Respiratory 15 Rate Blood Pressure 125/67 O2 Saturation 99 Oxygen O2 Source Room air Procedures - Laceration (location) L index finger Length in cm: 0.8 Wound type: Linear, Into subcut fat, Clean Neurovascular status: Sensory intact, Motor intact, Vascular intact Tendon involvement: Tendon intact Wound preparation: Hibiclens, Irrigated copiously NS, Wound explored, To the base Skin layer closure: Dermabond, Steri strips Other: Patient tolerated well, No complications, Neurovascular intact, Dressing applied, Tetanus booster given PD Medical Decision Making - ED course Complexity details: considered differential, d/w patient ED course: The patient is given a tetanus booster here in the emergency department and wound was repaired with Dermabond and Steri-Strips as above. We discussed signs of infection that should prompt patient's return to the emergency department. Departure - Departure Disposition: 01 Home, Self Care Clinical Impression: Laceration Instructions: ED Laceration Ext Skin Glue Comments: Your wound has been repaired today with Dermabond or "skin glue" and Steri- Strips. Your tetanus has been updated and you will not be due for another tetanus shot for another 10 years now. As far as your wound, you should keep the finger clean and dry for the next few days while the wound healing establishes. After this, you may allow the area to get wet. When the Steri- Strips begin to peel off and flap around, you may go ahead and remove them gently. The skin glue will come off on its own, given time. There is no role for preventative antibiotics for the vast majority of cuts, including this 1. If you begin to notice redness and swelling spreading progressively up your finger or a streak going from your finger onto your hand or arm, you will need to be rechecked immediately. Forms: PCP List
[2024-03-06] MEDS: TETANUS/DIPHTHERIA/PERTUSSIS 0.5 ML SYRINGE IM ONE (21:12)
[2024-03-06 21:36] VITALS: BP 105/65; O2SAT 98
== END 2024-03-06 21:28 | disposition home or self-care (01) ==
LOC: ED 19:54
DX: S61.211A Laceration without foreign body of left index finger without damage to nail, initial encounter (principal); W26.8XXA Contact with other sharp object(s), not elsewhere classified, initial encounter; G35 Multiple sclerosis; I10 Essential (primary) hypertension; E11.9 Type 2 diabetes mellitus without complications; E03.9 Hypothyroidism, unspecified; Z86.73 Personal history of transient ischemic attack (TIA), and cerebral infarction without residual deficits; Z23 Encounter for immunization; Z79.899 Other long term (current) drug therapy; Z79.82 Long term (current) use of aspirin; Z79.4 Long term (current) use of insulin; Z79.84 Long term (current) use of oral hypoglycemic drugs
CPT/HCPCS: 12001; 90471; 99283

== ENCOUNTER 2025-11-03 05:43 | Observation (INO) ==
[2025-11-03] MEDS: PROCHLORPERAZINE 10 MG/2 ML VIAL IVP STA (06:06)
[2025-11-03 06:16] LABS: HCT - HEMATOCRIT 44.1 % (37.0-47.0); HGB - HEMOGLOBIN 13.2 g/dL (12.0-16.0); MEAN PLATELET VOLUME 10.0 fL (7.9-10.8); NRBC ABSOLUTE COUNT (AUTO) 0.00 x10^3/uL; NUCLEATED RED BLOOD CELLS AUTO 0.0 /100WBC; PLT - PLATELET COUNT 516 10^3/uL (130-450); RED CELL DISTRIBUTION WIDTH 17.1 % (12.0-15.0)
--- NOTE | 2025-11-03 06:17 | ED Physician Documentation ---
History of Present Illness Stated complaint Stated Complaint: WEAKNESS/SOA Chief complaint Chief Complaint: General Additonal information Additional information: Patient is a very pleasant 39-year-old female with history of MS diagnosed in 2019 as well as type 2 diabetes. She presents to the ER with sudden onset this morning around 3 AM of nausea, chest tightness, chest pressure, abdominal discomfort, as well as diffuse itching throughout her habitus. She states that a few times in the past she has had similar symptoms and presented to the ER. She does state that she has significant sensory deficit on her right side of her body, and at one point developed pyelonephritis on her right flank but never developed any symptoms. She has never had itching like this before. She denies headache, visual changes. She stated that initially she felt short of breath, but currently feels improved in this regard. Denies recent upper respiratory illness symptoms to include sore throat, cough, rhinorrhea. She denies bowel movement or urination changes. She does state that she was recently put on Lamictal 2 weeks ago, and has been taking this without difficulty. She has no history of anaphylaxis or significant medication allergy. Denies previous history of abdominal surgery apart from tubal ligation, she does still have her gallbladder. EMS notes that she had reassuring vital signs throughout transit with oxygen saturation at 99 to 100% on room air. Normal range blood pressures. No increased respiratory rate or effort. Afebrile. Review of Systems Status of ROS: See HPI Meds/Allgy Home Medications Ambulatory Orders Medication Instructions Recorded Confirmed aspirin 81 mg tablet,delayed 81 mg PO DAILY 09/08/18 1 01/04/25 release (Adult Aspirin Regimen) dextromethorphan 20 mg-quinidine 1 cap PO BID 03/06/24 11/03/25 10 mg capsule (Nuedexta) ofatumumab 20 mg/0.4 mL 20 mg subcut QMONTH 03/06/24 11/03/25 subcutaneous pen injector (Kesimpta Pen) modafinil 100 mg tablet 100 mg PO DAILY 09/05/24 ubrogepant 100 mg tablet (Ubrelvy) 100 mg PO ONCE PRN migraine 09/05/24 11/03/25 headache levonorgestrel-ethinyl estradiol See Rx Instructions . Route 03/16/25 11/03/25 0.1 mg-20 mcg tablet (Aviane) .COMPLEX #84 tabs blood-glucose sensor (Dexcom G7 #9 ea 04/16/25 5 Sensor device) cholecalciferol (vitamin D3) 25 50 mcg PO DAILY 11/03/25 mcg (1,000 unit) capsule semaglutide 1 mg/dose (4 mg/3 mL) 1 mg (0.75 mL) subcu t QWEEK #3 mL 07/24/25 11/03/25 subcutaneous pen injector buspirone 15 mg tablet 15 mg PO BID anxiety #60 tab s 08/01/25 11/03/25 lisinopril 20 mg tablet 20 mg PO QDAY 08/07/2511/03 pregabalin 50 mg capsule 50 mg PO TID 08/07/25 empagliflozin 10 mg tablet 10 mg PO QDAY #30 tabs 07/2411/03/25 lamotrigine 25 mg tablet (Lamictal) 50 mg (2 x 25 mg) PO QDAY Mood 30 10/24/25 11/03/25 days #42 tabs omeprazole 40 mg capsule,delayed 40 mg PO DAILY 11/03/25 release Allergies Allergies Allergy/AdvReac Type Severity Reaction Status Date / Time terbinafine Allergy Mild Rash Verified 11/03/25 06:01 [facility] Active Problems All Active Problems Mood disorder (Acute) Chronic eczema (Acute) Hydronephrosis, right (Acute) Hypotension (Acute) Urinary incontinence (Acute) Passive suicidal ideations (Acute) Antibiotic-associated diarrhea (Acute) Vaso-vagal reaction (Acute) Lumbar radiculopathy (Acute) Back pain (Acute) Generalized anxiety disorder with panic attacks (Acute) Hypokalemia (Acute) Pyelonephritis of right kidney (Acute) Gastritis (Acute) GERD (gastroesophageal reflux disease) (Acute) Paresthesias (Acute) Allodynia (Acute) Endometriosis (Acute) Post-traumatic stress disorder, unspecified (Acute) Essential (primary) hypertension (Acute) Hypothyroidism, unspecified (Acute) Acquired hypertriglyceridemia (Acute) Functional dyspepsia (Acute) Obsessive-compulsive disorder, unspecified (Acute) Major depressive disorder, recurrent, moderate (Acute) Obesity, unspecified (Acute) Fibromyalgia (Acute) Sleep apnea, unspecified (Acute) Type 2 diabetes mellitus without complications (Chronic) Multiple sclerosis (Acute) Candidal intertrigo (Acute) Medical History Medical History Diabetes mellitus with insulin therapy Hyperglycemia due to diabetes mellitus Generalized anxiety disorder Personal history of other diseases of the circulatory system Cerebrovascular disease, unspecified Transient cerebral ischemic attack, unspecified Personal history of other endocrine, nutritional and metabolic disease Suicidal ideations UTI (urinary tract infection) Right-sided headache Cephalgia Pyelonephritis Surgical History Surgical History H/O tubal ligation Family History Family History (Updated 02/13/25 @ 11:24 by Jennifer Fowler LPN) Other Family history unknown Social History Social History Smoking Status: Never smoker Second hand tobacco smoke exposure: Yes Do you dip or chew tobacco?: No Do you vape?: No Patient requests smoking cessation consult: No Initiate information on smoking cessation: No Living arrangement: At home Marital Status: Living Condition: With spouse/s.o. Support Person: Yes Physical Activity: Walking, Resistance training and Weight-lifting Level: Independent Do you feel safe in your home environment?: Yes History of physical, verbal, emotional, or financial abuse?: No ETOH Use: None Substance Use: denies use Are you sexually active?: Yes Retired: Yes Known occupational exposures/hazards (Current/Previous): None known Service: No Are you following a diet prescribed by a doctor: No Are you following a special diet: Yes Special Diet Details: Low carb, no sugar, Low fat POLST Patient has POLST: No Exam Exam Vital Signs: Vital Signs x48h Temp Pulse Resp BP Pulse Ox 11/03/25 06:31 100 23 124/87 96 11/03/25 05:43 36.9 C 98 12 126/75 96 Constitutional Appears mildly uncomfortable. Resting in examination bed. Mild appearing scattered blotchy skin throughout habitus. No hives. No diaphoresis. HENMT normocephalic Eyes conjunctivae normal Neck/C-Spine supple Respiratory breath sounds equal bilaterally, normal respiratory effort, clear to auscultation bilaterally and no wheezes Saturating at 99% on room air. No increased respiratory effort. No wheeze. Cardiovascular Mild tachycardia, regular rhythm. Normal S1-S2, no murmurs. Radial pulses 2+ and symmetric. Gastrointestinal abdomen soft to palpation, nontender to palpation and nontender to percussion No guarding, no rigidity, no peritoneal signs Genitourinary no CVA tenderness Neurology php consultant II-XII intact and GCS 15 Psychiatry mental status grossly normal and oriented x3 Skin Scattered mild blotchy erythema with no target lesions, no hives. Results Vitals Vitals: Vital Signs - 24 hr 11/03/25 05:43 11/03/25 06:31 Temperature 36.9 C Temperature Source Temporal Artery Scan Pulse Rate 98 100 Respiratory Rate 12 23 Blood Pressure 126/75 124/87 O2 Saturation 96 96 O2 Source Room air Room air Pain Intensity 8 8 Oxygen O2 Source Room air Labs Labs: Laboratory Tests 11/03/25 06:10 WBC 28.2 H RBC 5.45 H Hgb 13.2 Hct 44.1 MCV 80.9 L MCH 24.2 L MCHC 29.9 L RDW 17.1 H Plt Count 516 H MPV 10.0 Neut # (Auto) 25.0 H Lymph # (Auto) 1.2 L [place] # (Auto) 1.6 H Eos # (Auto) 0.2 Baso # (Auto) 0.1 Absolute Nucleated RBC 0.00 Nucleated RBC % 0.0 Manual Slide Review Indicated WBC Morphology NORMAL APPEARANCE Platelet Estimate INCREASED (>450,000) Platelet Morphology NORMAL APPEARANCE RBC Morph Micro Appear 1+ ANISOCYTOSIS ESR 6 Sodium 139 Potassium 3.8 Chloride 110 Carbon Dioxide 19 L Anion Gap 10.0 BUN 9 Creatinine 0.6 Estimated GFR (MDRD) 111 Glucose 149 H Calcium 8.6 Total Bilirubin 0.3 AST 11 ALT 14 Alkaline Phosphatase 84 Troponin I High Sens 2.8 C-Reactive Protein 3.2 H Total Protein 7.1 Albumin 4.1 Globulin 3.0 Albumin/Globulin Ratio 1.4 Procalcitonin Immunoas < 0.05 PD Medical Decision Making ED course ED course: Assessment: 39-year-old female with history of type 2 diabetes as well as MS follows with neurology a couple times a year. She is presenting with onset of nausea, chest tightness, chest pain, abdominal discomfort, diffuse pruritus. Symptoms started somewhat abruptly tonight around 3 AM. Called EMS because she was having chest tightness and shortness of breath. Vital signs stable on the way to the hospital with EMS. On arrival she is normotensive, mildly tachycardic, lungs are clear to auscultation. She is saturating at 100% on room air. She does have a mild blotchy scattered rash throughout her neck, chest, belly. Notably was started on Lamictal about 2 weeks ago. DDx: Includes but is not limited to, allergic reaction, adverse drug reaction, dress syndrome, SJS, erythema multiforme, anaphylaxis, bacteremia, UTI, ACS, ND, NSTEMI, STEMI, viral upper respiratory illness, pneumonia, sepsis, etc. Workup: CBC with notable white count of 28.2, stable hemoglobin. Does have a history of intermittent episodes of leukocytosis throughout the last several years. CMP unremarkable apart from a glucose of 149. C-reactive protein is 3.2, similar to previous. Troponin is 2.8. Pro-Eron is negative. Chest x-ray per my read, shows no acute cardiopulmonary abnormality. There is a stable appearance of diaphragm, stable cardiac silhouette, no effusions, infiltrates, pneumothorax. No osseous lesions. EKG per my read: Sinus tachycardia with a rate of 101, otherwise regular intervals apart from a QTc of 43, likely old infarct with Q waves in leads III, aVF. No malignant ST segment changes. Pending urinalysis, blood cultures. Treatment: 1 L IVF, Benadryl, Compazine, famotidine, methylprednisolone. Discussion: Patient's presentation does not fit an obvious pattern. She has a leukocytosis of uncertain origin. Her chest pain that she initially came in with, has yielded a reassuring EKG, chest x-ray, and initial troponin. She had no wheeze, no hemodynamic instability. However with a blotchy skin and diffuse pruritus have concern for allergic reaction. Also on differential is skin re action related to Lamictal usage that started about 2 weeks ago. Considered dress syndrome, SJS, though at this time do not feel like her rash is appearing this sinister though remains on differential. She has a history of MS, and states that the symptoms today do not feel like a flare. She has significantly limited sensation on the right side of her habitus, and states that in the past she has actually had pyelonephritis that she never noticed symptomatically, and became bacteremic and septic in a similar presentation once before. Ultimately patient was handed off to my partner with plan to reassess after fluids, medications, and to finish out the rest of her workup. Plan for admission versus discharge will depend on patient's symptomatic improvement, and what the rest of the workup shows. Please refer to Dr. Aba Augustin's handoff note on this patient for further details of this patient's encounter completed after my shift. Disposition: ER, awaiting continued workup and reassessment. Discharge Plan Discharge Condition: Stable Prescriptions: No Action levonorgestrel-ethinyl estrad [Aviane] 0.1-20 mg-mcg tablet See Rx Instructions .ROUTE .COMPLEX Qty: 84 3RF Dose Instruction: Take 1 tablet by mouth once daily Rx Instructions: Take 1 tablet by mouth once daily (DME) Dexcom G7 Sensor Device See Rx Instructions .ROUTE .COMPLEX Qty: 9 3RF Dose Instruction: APPLY 1 DEVICE DIRECTED EVERY 10 DAYS. Rx Instructions: APPLY 1 DEVICE DIRECTED EVERY 10 DAYS. aspirin [Adult Aspirin Regimen] 81 MG tablet,delayed release (DR/EC) 81 mg PO DAILY Nuedexta 1 EACH capsule 1 cap PO BID Patient Comments: TAKE 1 CAPSULE BY MOUTH ONCE DAILY FOR 7 DAYS, THEN INCREASE TO 1 TABLET EVERY 12 HOURS. Kesimpta Pen 20 MG/0.4 ML pen injector 20 mg subcut QMONTH cholecalciferol (vitamin D3) 25 mcg (1,000 unit) capsule 50 mcg PO DAILY omeprazole 40 mg capsule,delayed release(DR/EC) 40 mg PO DAILY Patient Comments: TAKE 1 CAPSULE BY MOUTH ONCE DAILY modafinil 100 mg tablet 100 mg PO DAILY Patient Comments: TAKE 1 TABLET BY MOUTH ONCE DAILY IN THE MORNING Ubrelvy 100 mg tablet 100 mg PO ONCE PRN (Reason: migraine headache) buspirone 15 mg tablet 15 mg PO BID Qty: 60 2RF Rx Instructions: Take one tablet twice a day as needed for anxiety lisinopril 20 mg tablet 20 mg PO QDAY pregabalin 50 mg capsule 50 mg PO TID empagliflozin 10 mg tablet 10 mg PO QDAY Qty: 30 5RF semaglutide 1 mg/dose (4 mg/3 mL) pen injector 1 mg subcut QWEEK Qty: 3 6RF lamotrigine [Lamictal] 25 mg tablet 50 mg PO QDAY 30 Days Qty: 42 2RF Rx Instructions: Take one tablet daily for two weeks, then increase to two tablets daily for mood stabilization Print Language: Georgian Stand Alone Forms: PCP List
--- OUTSIDE RECORDS SUMMARY | 2025-11-03 06:33 | EXTERNAL MEDICAL SUMMARY RPT | Continuity of Care Document ---
Author Organization [facility] Address [address] [address] Phone Allergies and Intolerances date description facility reaction severity 2025-06-05 10:00 [id number]^terbinafi ne^^terbin afine^^[facility] ([facility] 2025-07-29 10:00 [id number]^terbinafi ne^^terbin afine^^[facility]id [facility] Rash (no severity) 2025-08-07 10:00 [id number]^terbinafi ne^^terbin afine^^[facility]ergy.id [facility] Rash (no severity) 2025-08-13 10:00 [id number]^terbinafi ne^^terbin afine^^[facility]ergy.id [facility] Rash (no severity) Problems date description facility 2025-08-07 14:29 Panic disorder [episodic paroxy smal anxiety] [facility] 2025-08-07 14:29 Generalized [facility] disorder [facility] 2025-08-07 16:22 Sepsis, unspecified organism [facility] 2025-08-07 16:22 Type 2 diabetes mellitus withou t complications [facility] 2025-08-07 16:22 Hypokalemia [facility] 2025-08-07 16:22 Demyelinating diseas es of the central nervous system (G35-G37) [facility] 2025-08-07 16:22 Hypotension, unspecified [facility] 2025-08-07 16:22 Noninfective gastroenteritis an d colitis, unspecified [facility] 2025-08-07 16:22 Tubulo-interstitial nephritis, not specified as acute or chronic [facility] 2025-08-07 16:22 Left lower quadrant pain [facility] 2025-08-07 16:22 Generalized abdominal pain [facility] 2025-08-07 16:22 Unspecified abdominal pain [facility] 2025-08-07 16:22 Nausea with vomiting, unspecifi ed [facility] 2025-08-07 16:22 Diarrhea, unspecified [facility] 2025-08-20 13:20 Unspecified hydronephrosis [facility] 2025-08-21 00:07 Unspecified hydronephrosis [facility] 2025-08-23 09:12 Radiculopathy, lumbosacral estephanie on [facility] 2025-09-12 10:05 Major depressive disorder, recu rrent, moderate [facility] 2025-09-12 10:05 Panic disorder [episodic paroxy smal anxiety] [facility] 2025-09-12 10:05 Generalized anxiety disorder [facility] 2025-09-12 10:05 Post-traumatic stress disorder, unspecified [facility] 2025-10-24 10:29 Mood [affective] disorders (F30 -F39) [facility] 2025-10-24 10:30 Mood [affective] disorders (F30 -F39) [facility] 2025-10-24 11:03 Mood [affective] disorders (F30 -F39) [facility] Results/Labs test date facility value unit notes Result panel 1 GLUCOSE, WHOLE BLOOD 2025-08-20 09:08 [facility] 143 (missing) (missing) Result panel 2 GLUCOSE, WHOLE BLOOD 2025-08-20 13:11 [facility] 90 (missing) (missing) Social History date description facility
[2025-11-03 06:36] LABS: ALT ALANINE AMINOTRANSFERASE 14.0 IU/L (10-60); AST ASPARTATE AMINOTRANSFERASE 11.0 IU/L (10-42); BUN - BLOOD UREA NITROGEN 9.0 mg/dL (6-20); CARBON DIOXIDE - CO2 19.0 mmol/L (21-32); CREATININE 0.6 mg/dL (0.6-1.3); CRP - C-REACTIVE PROTEIN 3.2 mg/dL (<0.5); GFR - MDRD 111.0 (>89)
[2025-11-03 06:40] LABS: SLIDE REVIEW? Indicated
[2025-11-03 06:41] LABS: PLATELET ESTIMATE, MANUAL INCREASED (>450,000) (NORMAL); PLATELET MORPHOLOGY NORMAL APPEARANCE (NORMAL); RBC MORPHOLOGY (MULTIPLE) 1+ ANISOCYTOSIS (NORMAL)
[2025-11-03 06:42] LABS: WBC MORPHOLOGY (MULTIPLE) NORMAL APPEARANCE (NORMAL)
[2025-11-03] MEDS: methylPREDNISolone SUCCINATE 125 MG/2 ML VIAL IVP STA (06:43)
[2025-11-03] MEDS: FAMOTIDINE 20 MG/2 ML VIAL IVP STA (06:45)
[2025-11-03] MEDS: SODIUM CHLORIDE 0.9% 1,000 ML IV STA ×2 (06:50→08:53)
--- NOTE | 2025-11-03 07:33 | XRAY Report ---
PROCEDURE: XR Chest 1V INDICATIONS: SOB TECHNIQUE: One view of the chest was acquired. COMPARISON: 03/15/2020 FINDINGS: Surgical changes and devices: None. Lungs and pleura: No pleural effusions or pneumothorax. No consolidation. Mediastinum: Mediastinal contours appear normal. Heart size is normal. Bones and chest wall: No suspicious bony lesions. Overlying soft tissues appear unremarkable. IMPRESSION: No acute cardiopulmonary process. Findings are concordant with preliminary interpretation provided by [facility]. Reviewed by: Rahul Miranda MD on 11/03/2025 7:30 AM PST Approved by: Rahul Miranda MD on 11/03/2025 7:30 AM PST Station ID: [id number]
[2025-11-03 07:56] LABS: B. PARAPERTUSSIS- RESP PCR PAN NOT DETECTED; B. PERTUSSIS- RESP PCR PANEL NOT DETECTED; C. PNEUMONIAE- RESP PCR PANEL NOT DETECTED; CORONAVIRUS 229E-RESP PCR NOT DETECTED; CORONAVIRUS HKU1-RESP PCR NOT DETECTED; CORONAVIRUS NL63-RESP PCR NOT DETECTED; CORONAVIRUS OC43-RESP PCR NOT DETECTED; HUMAN METAPNEUMOVIRUS NOT DETECTED; INFLUENZA A- RESP PCR PANEL NOT DETECTED; INFLUENZA B - RESP PCR PANEL NOT DETECTED; M. PNEUMONIAE- RESP PCR PANEL NOT DETECTED; PARAINFLUENZA VIRUS 1 NOT DETECTED; PARAINFLUENZA VIRUS 2 NOT DETECTED; PARAINFLUENZA VIRUS 4 NOT DETECTED; RHINOVIRUS/ENTEROVIRUS NOT DETECTED; RSV- RESP PCR PANEL NOT DETECTED; SARS-CoV-2 -RESP PCR PANEL NOT DETECTED
[2025-11-03] MEDS: ONDANSETRON 4 MG/2 ML VIAL IVP STA (08:06)
[2025-11-03 08:14] LABS: GLUCOSE, URINE (UA) >=1000 mg/dL (NEGATIVE); KETONES,URINE (UA) 15 mg/dL (NEGATIVE); OCCULT BLOOD,URINE MODERATE (NEGATIVE)
[2025-11-03 08:15] LABS: SQUAMOUS EPITHELIAL CELL,UR MANY Squamous (<= Few)
[2025-11-03] MEDS: DOXEPIN 25 MG CAPSULE PO STA (11:43)
[2025-11-03] MEDS ORDERED: SODIUM CHLORIDE FLUSH 0.9% 10 ML SYRINGE IVP PRN (12:33)
[2025-11-03] MEDS ORDERED: ONDANSETRON ODT 4 MG TABLET TL PRN (12:33)
--- NOTE | 2025-11-03 13:54 | HISTORY & PHYSICAL EXAMINATION ---
Chief Complaint Chief Complaint Chief Complaint: Weakness/ SOA History of Present Illness Admitted From Admitted From:: ED History Obtained From [facility]ed[facility] History obtained from: Patient, ED Provider, EMR History of Present Illness HPI Comment/Other: Very pleasant 39-year-old lady with a history of MS diagnosed in 2019, T2DM, MEREDITH, GERD, PTSD, RADHA, chronic diarrhea, and mood disorder who presents with sudden onset nausea, chest tightness, chest pressure, abdominal discomfort and itching throughout her body. She tells me that for months she has been having abdominal pain, nausea, vomiting, diarrhea, dizziness and diaphoresis which is otherwise unexplained. The rash which she experienced this morning and started on her hands before becoming generalized rash and edema is new for her. She denies any fever/chills, cough, chest pain. Her abdominal pain, nausea, vomiting, and diarrhea are unchanged from prior. She felt more short of breath this morning. During her longstanding history of MS, she has had a history of flares. This does not feel like a flare to her. This feels different, she is unable to elucidate why this is different. The only recent medication change she has had is recent start of Lamictal 2 weeks ago. She is not exhibiting any signs of Yip-Jamarcus. Her rash was atypical for this. She has no mucositis. Her surgical history includes a C- section as well as a tubal ligation, but she has never had a hysterectomy. She denies any abnormal uterine bleeding. She has normal monthly menses. In the ED, her lab workup was mostly normal. Her vital signs on arrival were normal. She had a heart rate of 98. Temperature of 36.9. Normal oxygen saturations on room air. Her blood pressures remained in the 120s systolic. Other than diffuse abdominal pain to light palpation, without guarding, her exam is unremarkable. Her lab work is notable for a profound leukocytosis up to 28K. In the ED, she received 2 doses of diphenhydramine, 125mg of solumedrol, famotidine, doxepin, 2 L of normal saline, Zofran 4 mg, and Compazine 10 mg IV. By the time of my evaluation, her rash is all but resolved. She says it was all over, including swelling such that her ID band on her wrist was tight. It is now loose and easily moves up and down her forearm. I discussed her case with the ED provider who says that her symptoms have mostly resolved, but she is tachycardic, experiencing subjective feeling of dyspnea with normal saturations, she does not have any aayush symptoms of infection at this time. Agree that she should be admitted for observation at this time to ensure that her symptoms continue to resolve. Will monitor heart rate on telemetry. Patient endorses that she is full code. She is normally independent from home with her family. Her and 14-year-old son lives with her. She ambulates with the use of a cane normally and has been up until this hospitalization. Meds/Allgy Home Medications Ambulatory Orders Medication Instructions Recorded Confirmed aspirin 81 mg tablet,delayed 81 mg PO DAILY 09/08/18 1 01/04/25 release (Adult Aspirin Regimen) dextromethorphan 20 mg-quinidine 1 cap PO BID 03/06/24 11/03/25 10 mg capsule (Nuedexta) ofatumumab 20 mg/0.4 mL 20 mg subcut QMONTH 03/06/24 11/03/25 subcutaneous pen injector (Kesimpta Pen) modafinil 100 mg tablet 100 mg PO DAILY 09/05/24 ubrogepant 100 mg tablet (Ubrelvy) 100 mg PO ONCE PRN migraine 09/05/24 11/03/25 headache levonorgestrel-ethinyl estradiol See Rx Instructions . Route 03/16/25 11/03/25 0.1 mg-20 mcg tablet (Aviane) .COMPLEX #84 tabs blood-glucose sensor (Dexcom G7 #9 ea 04/16/25 5 Sensor device) cholecalciferol (vitamin D3) 25 50 mcg PO DAILY 11/03/25 mcg (1,000 unit) capsule semaglutide 1 mg/dose (4 mg/3 mL) 1 mg (0.75 mL) subcu t QWEEK #3 mL 07/24/25 11/03/25 subcutaneous pen injector buspirone 15 mg tablet 15 mg PO BID anxiety #60 tab s 08/01/25 11/03/25 lisinopril 20 mg tablet 20 mg PO QDAY 08/07/2511/03 pregabalin 50 mg capsule 50 mg PO TID 08/07/25 empagliflozin 10 mg tablet 10 mg PO QDAY #30 tabs 07/2411/03/25 lamotrigine 25 mg tablet (Lamictal) 50 mg (2 x 25 mg) PO QDAY Mood 30 10/24/25 11/03/25 days #42 tabs omeprazole 40 mg capsule,delayed 40 mg PO DAILY 11/03/25 release Allergies Allergies Allergy/AdvReac Type Severity Reaction Status Date / Time terbinafine Allergy Mild Rash Verified 11/03/25 06:01 [facility] Active Problems All Active Problems (Updated 11/03/25 @ 16:18 by Kevin Garcia DO) Leukocytosis (Chronic) Tachyarrhythmia (Acute) Multiple sclerosis (Acute) Acute allergic reaction (Acute) Adverse reaction to drug in therapeutic use (Acute) Mood disorder (Acute) Chronic eczema (Acute) Hydronephrosis, right (Acute) Hypotension (Acute) Urinary incontinence (Acute) Passive suicidal ideations (Acute) Antibiotic-associated diarrhea (Acute) Vaso-vagal reaction (Acute) Lumbar radiculopathy (Acute) Back pain (Acute) Generalized anxiety disorder with panic attacks (Acute) Hypokalemia (Acute) Pyelonephritis of right kidney (Acute) Gastritis (Acute) GERD (gastroesophageal reflux disease) (Acute) Paresthesias (Acute) Allodynia (Acute) Endometriosis (Acute) Post-traumatic stress disorder, unspecified (Acute) Essential (primary) hypertension (Acute) Hypothyroidism, unspecified (Acute) Acquired hypertriglyceridemia (Acute) Functional dyspepsia (Acute) Obsessive-compulsive disorder, unspecified (Acute) Major depressive disorder, recurrent, moderate (Acute) Obesity, unspecified (Acute) Fibromyalgia (Acute) Sleep apnea, unspecified (Acute) Type 2 diabetes mellitus without complications (Chronic) Multiple sclerosis (Acute) Candidal intertrigo (Acute) Medical History Medical History (Updated 11/03/25 @ 16:18 by Kevin Garcia DO) Diabetes mellitus with insulin therapy Hyperglycemia due to diabetes mellitus Generalized anxiety disorder Personal history of other diseases of the circulatory system Cerebrovascular disease, unspecified Transient cerebral ischemic attack, unspecified Personal history of other endocrine, nutritional and metabolic disease Suicidal ideations UTI (urinary tract infection) Right-sided headache Cephalgia Pyelonephritis Surgical History Surgical History H/O tubal ligation Family History Family History (Updated 02/13/25 @ 11:24 by Jennifer Fowler LPN) Other Family history unknown Social History Social History Smoking Status: Never smoker Second hand tobacco smoke exposure: No Do you dip or chew tobacco?: No Do you vape?: No Patient requests smoking cessation consult: No Initiate information on smoking cessation: No Living arrangement: At home Marital Status: Living Condition: With spouse/s.o. Support Person: Yes Physical Activity: Walking, Resistance training and Weight-lifting Level: Assisted Home Mobility Equipment: Cane Do you feel safe in your home environment?: Yes History of physical, verbal, emotional, or financial abuse?: No ETOH Use: None Substance Use: denies use Are you sexually active?: Yes Retired: Yes Known occupational exposures/hazards (Current/Previous): None known Service: No Are you following a diet prescribed by a doctor: No Are you following a special diet: Yes Special Diet Details: Low carb, no sugar, Low fat POLST Patient has POLST: No Review of Systems Status of ROS: 10 or more systems reviewed and unremarkable except as noted in history and below Exam Exam Vital Signs: Vital Signs x48h Temp Pulse Pulse Resp BP BP Pulse Ox 11/03/25 15:58 36.6 C 130 H 18 106/67 97 11/03/25 12:42 36.6 C 125 H 18 128/91 H 98 11/03/25 12:00 122 H 20 121/86 96 11/03/25 10:33 122 H 20 109/77 96 11/03/25 09:51 120 H 119/76 97 11/03/25 08:52 130 H 22 118/88 96 GEN: No acute distress. Appears stated age. Resting comfortably. HEENT: NC/AT, normal appearance of external ears and nose. Hearing baseline. Cardiac: Tachycardic. Regular. No murmurs appreciated. Pulses brisk to all extremities. Pulm: Lungs CTA bilaterally, no cough, no wheezes. No adventitial lung sounds. Normal effort on room air. Conversational. Abdomen: Soft, diffusely tender to light palpation, most sensitive over the mid epigastrium. No rebound tenderness. No guarding. No masses palpated. Extremities: Moves all 4 extremities equally. Normal tone. Integumentary: Some nonpitting edema throughout her upper extremities, not profound. No palpable or erythematous rashes notable. Neuro: Face symmetric, CN II through XII intact grossly. No focal neurologic deficits. Psych: Mood euthymic with congruent affect. Reasonable historian. Judgment intact. Conclusion/Plan Problem List (1) Acute allergic reaction: Plan: Patient admitted with a suspected drug rash. She had edema throughout her body. She was recently started on lamotrigine 2 weeks ago. She has been titrating up this dose. She states the rash started on her hands starting yesterday. As of the time she had the ED, she was getting more and swollen throughout her body. She was given 2 doses of Benadryl in the ED as well as a dose of Solu-Medrol. Her symptoms have all but resolved. - Continue to monitor off of Lamictal - As needed oral Benadryl available - Discussed with ED provider given her ongoing symptoms of subjective dyspnea as well as her persistent tachycardia, I have decided to admit to the [facility] for observation (2) Tachyarrhythmia: Plan: Patient has a regular tachycardia. On initial presentation, her heart rate was 100. She then received Solu-Medrol at 640. Her heart rate since then has been in the 120s. EKG done in the ED this reveals sinus tachycardia. Denies any pain or anxiety. QTc 43. Personally reviewed her EKG, confirms sinus rhythm. No ST elevations. Suspect this may be secondary to Solu-Medrol which was given at 6:00 - Will monitor on telemetry symmetry - Patient remains asymptomatic, no need for rate control - Avoiding further steroids at this time. (3) Leukocytosis: Plan: Patient presents with a profound leukocytosis. If this is 28.2 this hospitalization. Intriguingly she has a persistent profound leukocytosis. As high as 24.6 and April 2020. With her elevated heart rate and elevated white blood cell count, she may be considered for sepsis, but she does not have any clear localizing symptoms of infection. Urine with ketonuria and glucosuria but no concerning signs of infection. No reason for SIRS reaction otherwise. Suspect this is incidental. CRP mildly elevated 3.2. ESR is normal. Procalcitonin is normal. She does have a primary care provider appointment on 11/05. She has discussed this unusual finding with her Neurologist who treats her MS, who tells her clearly that it is neither a side effect of her treatment or of her condition. He is encouraged her to seek out further investigation into her persistent leukocytosis. The differential for neutrophilia include infection, inflammation, medications, obesity, endocrine or myeloproliferative diseases. Among possible medications could be modafinil which she is on. - Follow-up blood cultures drawn in the ED. - Monitor off of antibiotics - If she fevers, would start antibiotics - Clinically does not appear dry. Holding off on further fluids. - Will check TSH in the morning - Repeat CBC and CMP in the morning - Recommend follow-up with hematology outpatient Qualifiers: Leukocytosis type: leukemoid reaction Qualified Code(s): D72.823 - Leukemoid reaction (4) Hyperglycemia due to diabetes mellitus: Plan: Patient with longstanding history of diabetes. She has been started on Ozempic and Jardiance for glycemic control, she has a CGM. This has been quite effective. She previously took pregabalin for neuropathic pain. A1c from March and May are 6.6% and 6.7% respectively. - Continue nightly Jardiance 10 mg - Not yet due for weekly Ozempic dose, resume at discharge - Patient continued on home glycemic control agents, no striking concern for systemic infection, opting not to start on POC glucose checks (5) Mood disorder: (6) Major depressive disorder, recurrent, moderate: Plan: Patient with history of both anxiety as well as depression. Clinically has been stable. Recently started on Lamictal for this. She is also on BuSpar p.o. twice daily. Tried multiple other treatments in the past. On Nuedexta for PBA as below - Continue BuSpar - Holding Lamictal as above (7) Multiple sclerosis: Plan: History of multiple sclerosis. Follows with Dr. Michel at [facility]. Her symptoms include right worse than left leg weakness, uses a cane. Chronic neuropathic pain, pseudobulbar affect, bladder dysfunction, cognitive dysfunction. She has been on Kesimpta 20mg q Month going back for several months. She is also on modafinil every morning. Interestingly she is on Nuedexta for PBA. Has been tolerating all of these treatments well. - Electing to hold modafinil and Nuedexta until her clinical picture is more clear - Reasonable to resume tomorrow morning - Last dose of Kesimpta was 2 weeks ago Plan By problem as above. I spent a total of 62 minutes in the care of this patient today. This time was spent reviewing labs, vital signs, imaging, interviewing and examining the patient, and discussing plan of care with them and their other care providers patient is presenting with an undiagnosed new problem with uncertain prognosis. Data review as above. Discussed her case with the ED provider, Dr. Augustin. Decision was made to admit the patient to observation status. [id number] Lab Results 11/03/25 06:10 11/03/25 06:10
[2025-11-03] MEDS: SODIUM CHLORIDE FLUSH 0.9% 10 ML SYRINGE IVP SCH (16:02)
[2025-11-03] MEDS: EMPAGLIFLOZIN 10 MG TABLET PO SCH (19:33)
[2025-11-03] MEDS ORDERED: EMPAGLIFLOZIN 10 MG TABLET PO SCH (20:00)
--- NOTE | 2025-11-03 21:48 | ED Physician Documentation ---
ED Addendum Addendum Addendum: Seems like allergic reaction with itching and faint hives, with URI symptoms, chest pain. Has mild dyspnea and feeling of mild swelling in throat. Had not received epi. Had been given steroids, benadryl, famotidine. Continues to have itching recur, with some feeling of dyspnea, but no chest pain and is able to talk full sentences, swalllowing okay. No visible edema in pharynx/uvula. Patient continued to feel this way for several hours and remains tachycardic despit fluids and time. Repeated Benadryl for itch was helpful. Doxepin PO for itch as well. I felt the patient should not be discahrged still tachycardic and with subjective feeling of throat fullness. Talked with hospitalist, who agrees to place the patient in OBS. disposition: patient placed in OBS in stable condition. Diagnosis: allergic reaction to lamictal Discharge Plan Discharge Patient Disposition: ED Place in Observation Condition: Stable Clinical Impression: Acute allergic reaction, Multiple sclerosis Interventions: ED Admission Assessment Last Done: 11/03/25 12:31
[2025-11-04] MEDS: ONDANSETRON 4 MG/2 ML VIAL IVP PRN (00:46)
[2025-11-04] MEDS: ACETAMINOPHEN 325 MG TABLET PO PRN (00:47)
[2025-11-04 05:44] LABS: HCT - HEMATOCRIT 37.5 % (37.0-47.0); HGB - HEMOGLOBIN 11.5 g/dL (12.0-16.0); MEAN PLATELET VOLUME 10.3 fL (7.9-10.8); PLT - PLATELET COUNT 454 10^3/uL (130-450); RED CELL DISTRIBUTION WIDTH 16.8 % (12.0-15.0)
[2025-11-04 05:54] LABS: ABNORMAL LYMPHS % (MANUAL) 0 %; BASOPHILS # (MANUAL) 0.0 10^3/uL (0-0.1)
[2025-11-04 06:04] LABS: BUN - BLOOD UREA NITROGEN 11.0 mg/dL (6-20); CARBON DIOXIDE - CO2 21.0 mmol/L (21-32); CREATININE 0.6 mg/dL (0.6-1.3); GFR - MDRD 111.0 (>89)
[2025-11-04 06:16] LABS: BAND NEUTROPHILS % (MANUAL) 2 %; EOSINOPHILS # (MANUAL) 0.2 10^3/uL (0-0.7); LYMPHOCYTES # (MANUAL) 3.5 10^3/uL (1.5-3.5); LYMPHOCYTES % (MANUAL) 16 %; MONOCYTES # (MANUAL) 2.0 10^3/uL (0.0-1.0); NEUTROPHILS # (MANUAL) 16.1 10^3/uL (1.5-6.6); PLATELET MORPHOLOGY NORMAL APPEARANCE (NORMAL); RBC MORPHOLOGY (MULTIPLE) NORMAL APPEARANCE (NORMAL)
[2025-11-04 06:17] LABS: PLATELET ESTIMATE, MANUAL NORMAL (130-450,000) (NORMAL); WBC MORPHOLOGY (MULTIPLE) NORMAL APPEARANCE (NORMAL)
[2025-11-04] MEDS: PANTOPRAZOLE 40 MG TABLET PO SCH (06:19)
[2025-11-04 07:59] VITALS: O2SAT 98
--- NOTE | 2025-11-04 08:27 | Discharge Summary ---
"Discharge Summary Admit Date: 11/03/25 Discharge Date: 11/04/25 Discharging Provider: Kevin Garcia Primary Care Provider: Riaz Evangelista Code Status: Attempt Resuscitation DIAGNOSES Discharge Diagnoses with Status of Each Condition: ## Rash, improved Suspected related to adverse drug reaction. Was a whole-body rash when she was seen in the ED. Associated edema. She was treated with IV Benadryl x 2, Solu- Medrol x 1, doxepin p.o. x 1. By the time she was seen by the hospital provider, she had no rash. She complained of some swelling and pruritus along her occiput in the evening prior to discharge that was responsive to Benadryl. Consistent with drug rash, not SJS. No mucosal involvement. - Reasonable to continue as needed Benadryl for the next few days - Discontinued Lamictal, added to allergy list - Will need to follow-up with primary prescriber for Lamictal for alternatives ## Tachycardia, improved ## Subjective dyspnea, resolved Patient had sinus tachycardia up to 130 which developed during her hospitalization. She also had some subjective dyspnea without any hypoxia. She has no evidence of DVT. Her Wells score is 1.5 only for heart rate. 1.3% chance of PE in ED population. Suspect most of this was artifact from steroids and antihistamines received in the ED. She is monitored overnight. Her vital signs remained stable. Her heart rate is coming back down. 90s to 100s this morning. She feels subjectively better. She has been pulling good volumes on IS. ## Leukocytosis, longstanding, persistent Patient had a leukocytosis up to 28K on arrival. Neutrophilic. She has had persistent leukocytosis going back several years. She has discussed this with her neurologist previously and they have told her that it is not related to her MS or any of her treatments for MS. She does not demonstrate other clear localizing symptoms of infection. She has remained afebrile. She reports that she has diaphoresis at home, but has not demonstrated this here. Her white blood cell count down trended from 28K-21K without antibiotics. Chest x-ray and urine are not indicative of infection. On our records, she has had vacillating leukocytosis going back to 2018. Unclear when she started modafinil which would be the only suspected medication that I see. Continue monitoring off antibiotics She has appointment with PCP day after discharge Given duration of years, recommend hematology referral ## T2DM, chronic, stable Continued and was stable on Ozempic and Jardiance. Not treated with insulin here. ## Major depressive disorder, chronic, stable Continues on as needed BuSpar. Using mostly just at night. Holding Lamictal as above. ## Multiple sclerosis, chronic, stable Follows with Dr. Michel at [facility]. Symptoms include weakness, chronic neuropathic pain, PBA, bladder dysfunction, cognitive dysfunction. She continues on Kesimpta 20 mg monthly, modafinil, Nuedexta. No changes to these medicines at this time. HPI History of Present Illness: Very pleasant 39-year-old lady with a history of MS diagnosed in 2019, T2DM, MEREDITH, GERD, PTSD, RADHA, chronic diarrhea, and mood disorder who presents with sudden onset nausea, chest tightness, chest pressure, abdominal discomfort and itching throughout her body. She tells me that for months she has been having abdominal pain, nausea, vomiting, diarrhea, dizziness and diaphoresis which is otherwise unexplained. The rash which she experienced this morning and started on her hands before becoming generalized rash and edema is new for her. She denies any fever/chills, cough, chest pain. Her abdominal pain, nausea, vomiting, and diarrhea are unchanged from prior. She felt more short of breath this morning. During her longstanding history of MS, she has had a history of flares. This does not feel like a flare to her. This feels different, she is unable to elucidate why this is different. The only recent medication change she has had is recent start of Lamictal 2 weeks ago. She is not exhibiting any signs of Yip-Jamarcus. Her rash was atypical for this. She has no mucositis. Her surgical history includes a C- section as well as a tubal ligation, but she has never had a hysterectomy. She denies any abnormal uterine bleeding. She has normal monthly menses. In the ED, her lab workup was mostly normal. Her vital signs on arrival were normal. She had a heart rate of 98. Temperature of 36.9. Normal oxygen saturations on room air. Her blood pressures remained in the 120s systolic. Other than diffuse abdominal pain to light palpation, without guarding, her exam is unremarkable. Her lab work is notable for a profound leukocytosis up to 28K. In the ED, she received 2 doses of diphenhydramine, 125mg of solumedrol, famotidine, doxepin, 2 L of normal saline, Zofran 4 mg, and Compazine 10 mg IV. By the time of my evaluation, her rash is all but resolved. She says it was all over, including swelling such that her ID band on her wrist was tight. It is now loose and easily moves up and down her forearm. I discussed her case with the ED provider who says that her symptoms have mostly resolved, but she is tachycardic, experiencing subjective feeling of dyspnea with normal saturations, she does not have any aayush symptoms of infection at this time. Agree that she should be admitted for observation at this time to ensure that her symptoms continue to resolve. Will monitor heart rate on telemetry. Patient endorses that she is full code. She is normally independent from home with her family. Her and 14-year-old son lives with her. She ambulates with the use of a cane normally and has been up until this hospitalization. CONSULTS | PROCEDURES Consultations: None Procedures: CXR 11/03 HOSPITAL COURSE Hospital Course: Patient was seen in the ED for drug rash. She had a rash spreading all over her body with edema that is progressed rather rapidly on the morning of her presentation at the ED. She was treated with IV Benadryl, Solu-Medrol, and doxepin in the ED. Following this she was tachycardic. She has a persistent and longstanding leukocytosis. This was acutely worsened during this hospitalization. Her neutrophil predominant leukocytosis was up to 28K. She had no other localizing signs of infection. She had a chest x-ray and urinalysis which were not suggestive of infection. She was monitored off of antibiotics, and her leukocytosis is downtrending somewhat to 21K. She was admitted observation mostly because of her subjective symptoms, persistent tachycardia, and unexplained leukocytosis. She was monitored on telemetry, and her heart rate is improving. She has remained in sinus rhythm, and is down to 90s to 100s. In review of her prior records, she tends to run relatively fast in the 90s. She feels like she is at her baseline. She has not become hypoxemic. Her vital signs otherwise are stable including her blood pressure. She was able to tolerate a regular diet, and she reports her sugars which she is checking on her CGM have remained normal. She has not required any insulin. Her rash did briefly return mostly with pruritus and some tightness in the occiput. This was responsive again to Benadryl. She was seen evaluated on the day of discharge, and feels well. She feels back to her baseline. She is no longer experiencing any dyspnea. She has been pulling good volumes on incentive spirometry. She graciously has follow-up with her PCP on 11/05. Given her hemodynamic stability and her lab stability, she is medically safe for discharge. Will continue on as needed Benadryl as needed for the next few days. Lamictal discontinued and added to her allergy list. She will need to follow-up with her primary prescriber for alternative. I did suggest she get a referral to hematology for her persistent leukocytosis, going back several years. She reports clarifying with her neurologist that this is not related to her MS or any for treatments for MS. Modafinil is the only obvious medication culprit that may be contributing. Other causes of persistent neutrophilia could include chronic inflammation, obesity, endocrine disorders, and myeloproliferative diseases. Her CRP is mildly elevated to 3.5, however she has a low procalcitonin, low ESR. Continue to monitor off of antibiotics for any infectious symptoms, she is aware of this. Blood cultures were drawn in the ED, will be monitored for 5 days. ALLERGIES Allergies Allergy/AdvReac Type Severity Reaction Status Date / Time lamotrigine Allergy Intermediate Rash Verified 11/04/25 07:51 terbinafine Allergy Mild Rash Verified 11/04/25 07:51 MEDICATIONS Ambulatory Orders Medication Instructions Recorded Confirmed aspirin 81 mg tablet,delayed 81 mg PO DAILY 09/08/18 1 01/04/25 release (Adult Aspirin Regimen) dextromethorphan 20 mg-quinidine 1 cap PO BID 03/06/24 11/03/25 10 mg capsule (Nuedexta) ofatumumab 20 mg/0.4 mL 20 mg subcut QMONTH 03/06/24 11/03/25 subcutaneous pen injector (Kesimpta Pen) modafinil 100 mg tablet 100 mg PO DAILY 09/05/24 ubrogepant 100 mg tablet (Ubrelvy) 100 mg PO ONCE PRN migraine 09/05/24 11/03/25 headache levonorgestrel-ethinyl estradiol See Rx Instructions . Route 03/16/25 11/03/25 0.1 mg-20 mcg tablet (Aviane) .COMPLEX #84 tabs blood-glucose sensor (Dexcom G7 #9 ea 04/16/25 5 Sensor device) cholecalciferol (vitamin D3) 25 50 mcg PO DAILY 11/03/25 mcg (1,000 unit) capsule semaglutide 1 mg/dose (4 mg/3 mL) 1 mg (0.75 mL) subcu t QWEEK #3 mL 07/24/25 11/03/25 subcutaneous pen injector buspirone 15 mg tablet 15 mg PO BID anxiety #60 tab s 08/01/25 11/03/25 lisinopril 20 mg tablet 20 mg PO QDAY 08/07/2511/03 pregabalin 50 mg capsule 50 mg PO TID 08/07/25 empagliflozin 10 mg tablet 10 mg PO QDAY #30 tabs 07/2411/03/25 omeprazole 40 mg capsule,delayed 40 mg PO DAILY 11/03/25 release diphenhydramine HCl 25 mg capsule 25 mg PO Q4HR PRN Al lergy Symptoms 11/04/25 #10 caps PHYSICAL EXAM AT DISCHARGE Vital Signs: Vital Signs x48h Temp Pulse Resp BP Pulse Ox 11/04/25 08:55 36.6 C 106 H 18 113/71 98 11/04/25 07:57 36.4 C L 106 H 18 110/77 98 11/04/25 05:35 36.7 C 94 16 111/7 L 97 LABS 11/04/25 05:31 11/04/25 05:31 Other Lab Results: ANC 16.1, absolute monocyte count 2.0. CRP 3.5, high ESR 6, normal Procalcitonin <0.05 TSH 1.86, normal DIAGNOSTIC IMAGING Diagnostic Imaging Results: Final report reviewed and Read independently Diagnostic Imaging Results Comments: CXR 11/03 No acute cardiopulmonary process. Normal lung volumes, normal cardiac silhouette, sharp costophrenic angles SEPSIS Current Stage of Sepsis: Ruled out FOLLOW UP Follow Up: Has follow-up with PCP, Dr. Evangelista, scheduled for 11/05 Will need to follow-up with her Lamictal prescriber in the next 1 to 2 weeks for an alternative TIME SPENT Time Spent in Discharge (Minutes): 37 Discharge Plan Discharge Patient Disposition: 01 Home, Self Care Condition: Good Medically Cleared Date:: 11/04/25 Prescriptions: New diphenhydramine HCl 25 mg Capsule 25 mg PO Q4HR PRN (Reason: Allergy Symptoms) Qty: 10 0RF Continued levonorgestrel-ethinyl estrad [Aviane] 0.1-20 mg-mcg tablet See Rx Instructions .ROUTE .COMPLEX Qty: 84 3RF Dose Instruction: Take 1 tablet by mouth once daily Rx Instructions: Take 1 tablet by mouth once daily (DME) Dexcom G7 Sensor Device See Rx Instructions .ROUTE .COMPLEX Qty: 9 3RF Dose Instruction: APPLY 1 DEVICE DIRECTED EVERY 10 DAYS. Rx Instructions: APPLY 1 DEVICE DIRECTED EVERY 10 DAYS. aspirin [Adult Aspirin Regimen] 81 MG tablet,delayed release (DR/EC) 81 mg PO DAILY Nuedexta 1 EACH capsule 1 cap PO BID Patient Comments: TAKE 1 CAPSULE BY MOUTH ONCE DAILY FOR 7 DAYS, THEN INCREASE TO 1 TABLET EVERY 12 HOURS. Kesimpta Pen 20 MG/0.4 ML pen injector 20 mg subcut QMONTH cholecalciferol (vitamin D3) 25 mcg (1,000 unit) capsule 50 mcg PO DAILY omeprazole 40 mg capsule,delayed release(DR/EC) 40 mg PO DAILY Patient Comments: TAKE 1 CAPSULE BY MOUTH ONCE DAILY modafinil 100 mg tablet 100 mg PO DAILY Patient Comments: TAKE 1 TABLET BY MOUTH ONCE DAILY IN THE MORNING Ubrelvy 100 mg tablet 100 mg PO ONCE PRN (Reason: migraine headache) buspirone 15 mg tablet 15 mg PO BID Qty: 60 2RF Rx Instructions: Take one tablet twice a day as needed for anxiety lisinopril 20 mg tablet 20 mg PO QDAY pregabalin 50 mg capsule 50 mg PO TID empagliflozin 10 mg tablet 10 mg PO QDAY Qty: 30 5RF semaglutide 1 mg/dose (4 mg/3 mL) pen injector 1 mg subcut QWEEK Qty: 3 6RF Discontinued lamotrigine [Lamictal] 25 mg tablet 50 mg PO QDAY 30 Days Qty: 42 2RF Rx Instructions: Take one tablet daily for two weeks, then increase to two tablets daily for mood stabilization Diet: Regular Interventions: Belongings Inventory Last Done: 11/04/25 09:00 Discharge Last Done: 11/04/25 09:22 Discharge Checklist - Nursing Last Done: 11/04/25 09:23 Discharge Vital Signs (30 Minutes) Last Done: 11/04/25 08:55 Health Concerns: You developed a rash while taking lamotrigine. While many rashes from lamotrigine are mild, it is not possible to predict which rashes might become serious or life-threatening. For your safety, you must stop this medication right away. STOP taking lamotrigine immediately. Do not take any more doses of this medication. Graciously, your rash symptoms quickly resolved in the ED, they were responsive to Benadryl. Unfortunately I think you had some adverse reactions to the heavy doses of medication that were applied in the ED to help treat your initial rash. You continue to remain stable since your admission, and are medically safe to discharge. What to expect: * Your rash may take a week or longer to fade completely because lamotrigine stays in your body for some time after you stop taking it. * Continue taking antihistamines as directed to help with itching. * Apply moisturizing lotions or creams (emollients) to your skin to help with dryness and irritation. Seek immediate medical attention if you develop any of these warning signs: * Fever * Blisters on your skin or in your mouth, eyes, or genital area * Peeling skin * Mouth sores or painful swallowing * Eye redness or pain * Feeling very tired or unwell (malaise) * Swollen lymph nodes * Yellowing of skin or eyes * Unusual bruising or bleeding * Signs of infection: Including fever or worsened nausea and vomiting. Important medication information: * Never take lamotrigine again. Tell all your healthcare providers that you had a rash from this medication. * Avoid related medications including phenytoin (Dilantin), carbamazepine (Tegretol), and other aromatic amine anticonvulsants, as you may have similar reactions to these drugs. Would only trial these with caution in the future. * Contact the prescribing provider within the next few days to discuss an alternative medication for your condition. Follow-up: Schedule appointment soon with the doctor prescribed lamotrigine to discuss alternatives If you have any questions or concerns about your rash or symptoms, contact your healthcare provider or seek medical attention immediately. I would discuss with Dr. Evangelista about referral to a blood doctor for your persistent high white blood cell count. Print Language: Serbian Patient Instructions: Diphenhydramine Follow-up Care: Riaz Evangelista MD [Primary Care Provider, Family Practice] Vitals documented within 30 minutes of discharge?: Yes (Yes.)"
[2025-11-04] MEDS: ENOXAPARIN 40 MG/0.4 ML SYRINGE SUBQ SCH (08:40)
[2025-11-04] MEDS: ASPIRIN EC 81 MG TABLET PO SCH (08:40)
[2025-11-04 09:22] VITALS: BP 113/71; TEMP 97.9
== END 2025-11-04 09:25 | disposition home or self-care (01) ==
LOC: MS2 05:43 → ED 05:43 → MS2 12:32
PROVIDERS: ADMIT Student in an Organized Health Care Education/Training Program; ATTEND Student in an Organized Health Care Education/Training Program